=== PATIENT | female | born 1960 | race Two or more races ===

== ENCOUNTER 2020-06-13 09:12 | Outpatient (REF) | payer OTHER, SELFPAY ==
[2020-06-13 10:22] LABS: MANUAL DIFF FLAG NO
[2020-06-13 10:31] LABS: Basophils Percent Auto 0.3 % (0-2); Eosinophils Absolute Auto 0.2 X10*3/uL (0.0-0.4); Eosinophils Percent Auto 3.1 % (0-4); Hematocrit 43.3 % (37-47); Imm Gran Abs Auto 0.02 X10*3/uL (0.00-0.03); Imm Gran Pct Auto 0.3 % (0.0-0.4); Lymphocytes Absolute Auto 2.4 X10*3/uL (1.2-4.9); Lymphocytes Percent Auto 32.2 % (20-40); Mean Corpuscular HGB Conc 32.3 g/dl (31.0-35.0); Mean Corpuscular Hemoglobin 30.2 pg (27.0-33.0); Mean Corpuscular Volume 93.3 fL (80-98); Mean Platelet Volume 10.2 fL (9.4-12.3); Monocytes Absolute Auto 0.3 X10*3/uL (0.1-1.2); Monocytes Percent Auto 3.4 % (2-11); Neutrophils Absolute Auto 4.6 X10*3/uL (2.0-8.3); Neutrophils Percent Auto 60.7 % (45-73); Platelet Count 255 X10*3/uL (160-400); Red Blood Count 4.64 X10*6/uL (4.20-5.50); Red Cell Distribution Width 14.4 % (11.0-16.0); White Blood Count 7.5 X10*3/uL (4.8-10.8)
[2020-06-13 11:03] LABS: Alanine Aminotransferase 27 U/L (0-31); Albumin Level 4.2 g/dL (3.5-5.0); Alkaline Phosphatase 155 U/L (39-117); Anion Gap 14 (12-20); Aspartate Amino Transferase 25 U/L (5-31); Bilirubin Total 0.4 mg/dL (0.0-1.0); Blood Urea Nitrogen 13 mg/dL (9-16); Calcium 9.2 mg/dL (8.4-10.2); Carbon Dioxide 27 mmol/L (22-29); Chloride 104 mmol/L (96-108); Cholesterol 189 mg/dL; Estimated Glomerular Filt Rate > 60; Glucose Fasting 93 mg/dL (60-99); HDL Cholesterol 39 mg/dL; LDL Cholesterol Calculated 131 mg/dl; Potassium 4.5 mmol/l (3.3-5.1); Sodium 140 mmol/L (135-145); Total Protein 7.7 g/dL (6.5-8.0); Triglycerides 96 mg/dL
[2020-06-13 11:30] LABS: Erythrocyte Sedimentation Rate 53 MM/HR (0-20)
== END 2020-06-13 09:13 | disposition home or self-care (01) ==
LOC: HO.LAB 09:12
PROVIDERS: PCP Internal Medicine; Visit Provider Internal Medicine
DX: E78.5 Hyperlipidemia, unspecified (principal); R79.89 Other specified abnormal findings of blood chemistry; L93.0 Discoid lupus erythematosus
CPT/HCPCS: 36415; 80053; 80061; 85025; 85652

== ENCOUNTER 2020-09-12 10:58 | Outpatient (REF) | payer OTHER, SELFPAY ==
[2020-09-12 11:35] LABS: MANUAL DIFF FLAG NO
[2020-09-12 11:45] LABS: Basophils Percent Auto 0.4 % (0-2); Eosinophils Absolute Auto 0.2 X10*3/uL (0.0-0.4); Eosinophils Percent Auto 2.1 % (0-4); Hematocrit 45.2 % (37-47); Hemoglobin 15.1 g/dl (12.0-16.0); Imm Gran Abs Auto 0.03 X10*3/uL (0.00-0.03); Imm Gran Pct Auto 0.3 % (0.0-0.4); Lymphocytes Absolute Auto 3.1 X10*3/uL (1.2-4.9); Lymphocytes Percent Auto 33.8 % (20-40); Mean Corpuscular HGB Conc 33.4 g/dl (31.0-35.0); Mean Corpuscular Volume 89.9 fL (80-98); Mean Platelet Volume 10.3 fL (9.4-12.3); Monocytes Absolute Auto 0.5 X10*3/uL (0.1-1.2); Monocytes Percent Auto 5.1 % (2-11); Neutrophils Absolute Auto 5.3 X10*3/uL (2.0-8.3); Neutrophils Percent Auto 58.3 % (45-73); Platelet Count 323 X10*3/uL (160-400); Red Blood Count 5.03 X10*6/uL (4.20-5.50); Red Cell Distribution Width 14.7 % (11.0-16.0); White Blood Count 9.1 X10*3/uL (4.8-10.8)
[2020-09-12 12:28] LABS: Alanine Aminotransferase 37 U/L (0-31); Albumin Level 4.5 g/dL (3.5-5.0); Alkaline Phosphatase 163 U/L (39-117); Anion Gap 14 (12-20); Aspartate Amino Transferase 29 U/L (5-31); Bilirubin Total 0.5 mg/dL (0.0-1.0); Blood Urea Nitrogen 14 mg/dL (9-16); Calcium 9.7 mg/dL (8.4-10.2); Carbon Dioxide 27 mmol/L (22-29); Chloride 105 mmol/L (96-108); Cholesterol 221 mg/dL; Estimated Glomerular Filt Rate > 60; Glucose Fasting 90 mg/dL (60-99); HDL Cholesterol 46 mg/dL; LDL Cholesterol Calculated 156 mg/dl; Potassium 4.7 mmol/L (3.3-5.1); Sodium 141 mmol/L (135-145); Total Protein 8.3 g/dL (6.5-8.0); Triglycerides 95 mg/dL
[2020-09-12 12:31] LABS: Erythrocyte Sedimentation Rate 43 MM/HR (0-20)
== END 2020-09-12 10:59 | disposition home or self-care (01) ==
LOC: HO.LAB 10:58
PROVIDERS: PCP Internal Medicine; Visit Provider Internal Medicine
DX: E78.5 Hyperlipidemia, unspecified (principal); R79.89 Other specified abnormal findings of blood chemistry; L93.0 Discoid lupus erythematosus
CPT/HCPCS: 36415; 80053; 80061; 85025; 85652

== ENCOUNTER 2020-09-14 10:33 | Outpatient (REF) | payer OTHER, SELFPAY ==
--- NOTE | ~2020-09-14 | MM_ITS ---
EXAMINATION: MM SCREENING DIGITAL BREAST TOMOSYNTHESIS, BILATERAL CLINICAL INFORMATION: Screening. Asymptomatic. The lifetime risk of breast cancer based on the Tyrer-Cuzick Model is 4%. COMPARISON: Mammography: 08/19/2019, 10/02/2016, 10/18/2014 TECHNIQUE: Digital breast tomosynthesis is performed in both the craniocaudal and mediolateral oblique views along with computer-aided detection (CAD). Synthesized 2D images are generated from the tomosynthesis. Additional left MLO view is provided. FINDINGS: The breasts are almost entirely fatty (ACR BI-RADS breast composition Category a). There are no significant masses, abnormal calcifications, or other abnormalities. The axilla and skin contours are unremarkable. MM/MM tomosynthesis screening BI IMPRESSION: No mammographic evidence of malignancy. ASSESSMENT: BI-RADS 1: Negative RECOMMENDATION: Routine annual mammography screening. This patient's information was entered into a reminder system with a target due date for their next mammogram.
== END 2020-09-14 10:34 | disposition home or self-care (01) ==
LOC: HO.MAMMO 10:33
PROVIDERS: Visit Provider Internal Medicine
DX: Z12.31 Encounter for screening mammogram for malignant neoplasm of breast (principal)
CPT/HCPCS: 77063; 77067

== ENCOUNTER 2021-03-14 22:10 | Emergency (ER) | payer OTHER, SELFPAY ==
--- NOTE | 2021-03-14 | ECG_ITS ---
Test Reason : MIGRAINE Blood Pressure : / mmHG Vent. Rate : 081 BPM Atrial Rate : 081 BPM P-R Int : 146 ms QRS Dur : 088 ms QT Int : 394 ms P-R-T Axes : 039 -02 036 degrees QTc Int : 457 ms Normal sinus rhythm Normal ECG When compared with ECG of 19-JUL-2019 11:45, No significant change was found Referred By: Generic ED Physician Electronically Signed By:HEIDI ADLER MD
--- NOTE | ~2021-03-14 | XR_ITS ---
EXAMINATION: XR CHEST CLINICAL INFORMATION: Intermittent chest pain COMPARISON: 07/19/2019 TECHNIQUE: Frontal view of the chest was obtained. FINDINGS: The lungs are well expanded. There is no focal consolidation, edema, or effusion. No pneumothorax. The cardiomediastinal silhouette is within normal limits. No acute osseous abnormality. XR/XR chest 1V IMPRESSION: Clear lungs.
[2021-03-14 22:35] VITALS: BP 122/65; PULSE 87; RESP 18; TEMP 36.5; O2SAT 95; BMI 36.6
[2021-03-14 23:10] LABS: Basophils Percent Auto 0.3 % (0-2); Eosinophils Absolute Auto 0.2 X10*3/uL (0.0-0.4); Eosinophils Percent Auto 2.2 % (0-4); Hematocrit 41.2 % (37-47); Hemoglobin 13.8 g/dl (12.0-16.0); Imm Gran Abs Auto 0.03 X10*3/uL (0.00-0.03); Imm Gran Pct Auto 0.3 % (0.0-0.4); Lymphocytes Absolute Auto 3.6 X10*3/uL (1.2-4.9); Lymphocytes Percent Auto 37.3 % (20-40); MANUAL DIFF FLAG NO; Mean Corpuscular HGB Conc 33.5 g/dl (31.0-35.0); Mean Corpuscular Hemoglobin 30.6 pg (27.0-33.0); Mean Corpuscular Volume 91.4 fL (80-98); Mean Platelet Volume 10.1 fL (9.4-12.3); Monocytes Absolute Auto 0.6 X10*3/uL (0.1-1.2); Monocytes Percent Auto 5.9 % (2-11); Neutrophils Absolute Auto 5.2 X10*3/uL (2.0-8.3); Platelet Count 262 X10*3/uL (160-400); Red Blood Count 4.51 X10*6/uL (4.20-5.50); Red Cell Distribution Width 16.2 % (11.0-16.0); White Blood Count 9.6 X10*3/uL (4.8-10.8)
[2021-03-14 23:15] LABS: INTERNATIONAL NORM RATIO 1.1 (0.9-1.1)
--- NOTE | 2021-03-14 23:19 | ED.HA ---
HPI - Headache General Chief Complaint: Headache Stated Complaint: migraine Time Seen by Provider: 03/14/21 23:19 Source: patient Mode of arrival: ambulatory Limitations: no limitations History of Present Illness HPI Narrative: patient states she has had a couple of days of headache, patient been taking her medication with some improvement, no with increased pain. MD elicited complaint: migraine Onset (ago): week(s) Onset description: gradually Location: occipital Severity: moderate Quality & Timing: sharp Exacerbating factors: light and noise Associated symptoms: nausea and vomiting Related Data Home Medications Medication Instructions Recorded Confirmed fluocinonide 0.05 % topical TOPICAL 06/13/20 09/15/20 ointment folic acid 1 mg tablet mg PO 06/13/20 09/15/20 methotrexate sodium 2.5 mg tablet mg PO 06/13/20 09/15/20 ondansetron HCl 4 mg tablet mg PO 06/13/20 09/15/20 tacrolimus 0.1 % topical ointment TOPICAL BID 06/13/20 09/15/20 Previous Rx's Medication Instructions Recorded albuterol sulfate 90 mcg/actuation 2 puff PO QID PRN 30 Days #8.5 g 09/15/20 aerosol inhaler docusate sodium 100 mg capsule 100 mg PO BID PRN #60 cap 09/15/20 (DOK) aspirin 81 mg tablet,delayed 81 mg PO DAILY #90 tab 09/18/20 release miscellaneous medical supply 1 ea MISCELLANEOUS .daily as 09/18/20 needed 365 Days #1 ea omeprazole 20 mg capsule,delayed 20 mg PO DAILY #30 cap 11/09/20 release hydroxyzine HCl 10 mg tablet 10 mg PO BID PRN #60 tab 12/21/20 tiotropium bromide 18 mcg capsule 1 cap INHALATION DAILY #30 inh 12/21/20 with inhalation device (Spiriva with HandiHaler) clonazepam 0.5 mg tablet 0.5 mg PO BID PRN 30 Days #60 tab 01/15/21 duloxetine 60 mg capsule,delayed 60 mg PO BID #60 cap 01/15/21 release gabapentin 800 mg tablet 800 mg PO TID 30 Days #90 tab 01/15/21 trazodone 50 mg tablet 50 mg PO BEDTIME PRN 30 Days #30 01/15/21 tab salsalate 500 mg tablet 1,000 mg PO TID #180 tab 01/19/21 meclizine 25 mg tablet 25 mg PO TID PRN 10 Days #30 tab 02/14/21 tizanidine 4 mg tablet 4 mg PO TID PRN #90 tab 02/24/21 albuterol sulfate 2.5 mg INHALATION TID PRN #225 ml 03/09/21 bupropion HCl 300 mg 24 hr tablet, 300 mg PO DAILY #90 tab 03/09/21 extended release oxycodone-acetaminophen 10 mg-325 1 tab PO Q6H PRN 28 Days #112 tab 03/09/21 mg tablet topiramate 100 mg tablet 100 mg PO BID 30 Days #60 tab 03/09/21 zolpidem 10 mg tablet 10 mg PO BEDTIME PRN 30 Days #30 03/14/21 tab Allergies Allergy/AdvReac Type Severity Reaction Status Date / Time hydroxychloroquine Allergy Intermediate SHORTNESS, Verified 03/14/21 22:40 [From [facility]] CHEST TIGHTNESS , RASH oseltamivir Allergy Unknown Unknown Verified 03/14/21 22:40 Review of Systems Constitutional: Constitutional: Reports no additional constitutional complaints Eyes: Eyes: Reports no additional eye complaints ENT: Denies dizziness Cardiovascular: Cardiovascular: Reports no additional cardiovascular complaints Respiratory: Respiratory: Reports as per HPI Gastrointestinal: Gastrointestinal: Reports no additional gastrointestinal complaints Genitourinary: Genitourinary: Reports no additional female genitourinary complaints Musculoskeletal: Musculoskeletal: Reports no additional musculoskeletal complaints Integumentary/Breasts: Skin/Breast: Denies rash Neurologic: Reports system reviewed and no additional complaints, except as documented, Denies dizziness and Denies Sensory deficit (Neuro) Psychiatric: Psychiatric: Denies anxiety PMFSH Past Medical History Medical History Anxiety Asthma Constipation Depression Discoid lupus Dyslipidemia Elevated LFTs GERD without esophagitis Insomnia Lumbar degenerative disc disease Migraine Obesity (BMI 30-39.9) Surgical History H/O hand surgery History of colonoscopy History of foot surgery History of laparoscopic appendectomy History of lumbar surgery History of sinus surgery History of tubal ligation S/P total abdominal hysterectomy Family History Family History Father Heart disease Hypertension Stroke CVD (cardiovascular disease) Mother Hypertension Asthma Diabetes Sister Diabetes Hypertension Other Mental problem Social History Social History Housing: House Alcohol intake: never Patient Tobacco Use Status: Current everyday Tobacco user Cigarettes Per Day: 10 Advance Directives: No Advance Directives Information Provided: Yes Patient : No service: No Current occupational status: disabled Physical Exam Vital Signs: Vital Signs: Last Vital Signs Temp 98.4 F 03/14/21 23:33 Pulse 80 03/15/21 00:42 Resp 19 03/15/21 00:42 BP 129/63 03/15/21 00:42 Pulse Ox 94 03/15/21 00:42 Body Mass Index 36.6 Const: Other: Patient moaning with pain Nutritional Appearance: obese Orientation/consciousness: oriented to person and patient oriented x3 Limitations: no limitations HENMT: Head: Yes normal to inspection Ears: external ears normal General nose exam: Normal external nose present Mouth: Normal oral and palatal mucosa present and oropharynx normal Throat: Yes posterior oropharynx normal Eyes: Other: optic disks normal in both eyes Neck: Other: supple Neck: Yes normal visual inspection Chest: Chest palpation & inspection: normal inspection of the chest Resp: Auscultation: clear to auscultation bilaterally Cardio: Jugular venous distension: no JVD Rate: regular rate Rhythm: regular rhythm Heart sounds: S1 normal heart sound present and S2 normal heart sound present GI: Inspection: Yes normal to inspection Palpation (GI): Soft to palpation, nontender and No hepatosplenomegaly present Auscultation: normal bowel sounds : General: Yes no CVA tenderness Back/Spine/Pelvis: Back: no CVA tenderness Skin: General skin exam: no rashes or lesions noted Neuro: Other: no evidence of any focal weakness General: oriented to person and patient oriented x3 Cranial nerves: Yes CN's II-XII intact bilaterally Motor exam (neuro): 5/5 motor strength present throughout Sensory Exam: No Sensory deficit (Neuro) Extrem: General: Yes normal to inspection Psych: Appearance: grossly normal Course Reevaluation(s) Reevaluation #1: patient improved, no further headache. Will dc home Time: 00:58 MDM - Headache Lab Data Result diagrams: 03/14/21 23:02 03/14/21 23:02 Labs: Lab Results 03/14/21 03/14/21 03/14/21 Range/Units 23:02 23:02 23:02 WBC 9.6 (4.8-10.8) X10*3/uL RBC 4.51 (4.20-5.50) X10*6/uL Hgb 13.8 (12.0-16.0) g/dl Hct 41.2 (37-47) % MCV 91.4 (80-98) fL MCH 30.6 (27.0-33.0) pg MCHC 33.5 (31.0-35.0) g/dl RDW 16.2 H (11.0-16.0) % Plt Count 262 (160-400) X10*3/uL MPV 10.1 (9.4-12.3) fL Immature Gran % (Auto) 0.3 (0.0-0.4) % Neut % (Auto) 54.0 (45-73) % Lymph % (Auto) 37.3 (20-40) % [place] % (Auto) 5.9 (2-11) % Eos % (Auto) 2.2 (0-4) % Baso % (Auto) 0.3 (0-2) % Lymph # (Auto) 3.6 (1.2-4.9) X10*3/uL [place] # (Auto) 0.6 (0.1-1.2) X10*3/uL Eos # (Auto) 0.2 (0.0-0.4) X10*3/uL Baso # (Auto) 0.0 (0.0-0.2) X10*3/uL Abs Immat Gran (auto) 0.03 (0.00-0.03) X10*3/uL Absolute Neuts (auto) 5.2 (2.0-8.3) X10*3/uL Absolute Nucleated RBC 0.000 (0.0-0.012) X10*3/uL Nucleated RBC % (auto) 0.0 (0.0-0.2) /100WBC PT 12.0 (9.9-13.0) SEC INR 1.1 (0.9-1.1) Sodium 143 (135-145) mmol/L Potassium 3.9 (3.3-5.1) mmol/L Chloride 113 H (96-108) mmol/L Carbon Dioxide 21 L (22-29) mmol/L Anion Gap 13 (12-20) BUN 13 (9-16) mg/dL Creatinine 0.83 (0.5-1.4) mg/dL Estim Creat Clear Calc 77.4 Estimated GFR > 60 Random Glucose 103 (60-115) mg/dL Calcium 9.6 (8.4-10.2) mg/dL Total Bilirubin 0.4 (0.0-1.0) mg/dL AST 25 (5-31) U/L ALT 36 H (0-31) U/L Alkaline Phosphatase 149 H (39-117) U/L Troponin I High Sens (<3.5-17.0) ng/L Total Protein 7.5 (6.5-8.0) g/dL Albumin 4.0 (3.5-5.0) g/dL 03/14/21 Range/Units 23:02 WBC (4.8-10.8) X10*3/uL RBC (4.20-5.50) X10*6/uL Hgb (12.0-16.0) g/dl Hct (37-47) % MCV (80-98) fL MCH (27.0-33.0) pg MCHC (31.0-35.0) g/dl RDW (11.0-16.0) % Plt Count (160-400) X10*3/uL MPV (9.4-12.3) fL Immature Gran % (Auto) (0.0-0.4) % Neut % (Auto) (45-73) % Lymph % (Auto) (20-40) % [place] % (Auto) (2-11) % Eos % (Auto) (0-4) % Baso % (Auto) (0-2) % Lymph # (Auto) (1.2-4.9) X10*3/uL [place] # (Auto) (0.1-1.2) X10*3/uL Eos # (Auto) (0.0-0.4) X10*3/uL Baso # (Auto) (0.0-0.2) X10*3/uL Abs Immat Gran (auto) (0.00-0.03) X10*3/uL Absolute Neuts (auto) (2.0-8.3) X10*3/uL Absolute Nucleated RBC (0.0-0.012) X10*3/uL Nucleated RBC % (auto) (0.0-0.2) /100WBC PT (9.9-13.0) SEC INR (0.9-1.1) Sodium (135-145) mmol/L Potassium (3.3-5.1) mmol/L Chloride (96-108) mmol/L Carbon Dioxide (22-29) mmol/L Anion Gap (12-20) BUN (9-16) mg/dL Creatinine (0.5-1.4) mg/dL Estim Creat Clear Calc Estimated GFR Random Glucose (60-115) mg/dL Calcium (8.4-10.2) mg/dL Total Bilirubin (0.0-1.0) mg/dL AST (5-31) U/L ALT (0-31) U/L Alkaline Phosphatase (39-117) U/L Troponin I High Sens 4.3 (<3.5-17.0) ng/L Total Protein (6.5-8.0) g/dL Albumin (3.5-5.0) g/dL ECG Data Attestation: I personally reviewed and interpreted this ECG as follows: Interpretation: sinus rate of 80, no st or twave changes Discharge Plan Discharge Clinical Impression: Migraine Patient Disposition: Home, Self-Care Instructions: Migraine Headache (ED) Prescriptions: No Action miscellaneous medical supply Misc 1 ea miscellaneous .daily as needed 365 Days Qty: 1 RF: 0 aspirin 81 mg tablet,delayed release (DR/EC) 81 mg PO DAILY Qty: 90 RF: 3 omeprazole 20 mg capsule,delayed release(DR/EC) 20 mg PO DAILY Qty: 30 RF: 2 tiotropium bromide [Spiriva with HandiHaler] 18 mcg capsule, w/inhalation device 1 cap inhalation DAILY Qty: 30 RF: 3 hydroxyzine HCl 10 mg tablet 10 mg PO BID PRN (Reason: for anxiety) Qty: 60 RF: 3 trazodone 50 mg tablet 50 mg PO BEDTIME PRN (Reason: insomnia) 30 Days Qty: 30 RF: 3 duloxetine 60 mg capsule,delayed release(DR/EC) 60 mg PO BID Qty: 60 RF: 2 clonazepam 0.5 mg tablet 0.5 mg PO BID PRN (Reason: anxiety) 30 Days Qty: 60 RF: 0 gabapentin 800 mg tablet 800 mg PO TID 30 Days Qty: 90 RF: 3 salsalate 500 mg tablet 1,000 mg PO TID Qty: 180 RF: 1 meclizine 25 mg tablet 25 mg PO TID PRN (Reason: dizziness) 10 Days Qty: 30 RF: 1 tizanidine 4 mg tablet 4 mg PO TID PRN (Reason: for muscle spasm) Qty: 90 RF: 0 oxycodone-acetaminophen 10-325 mg tablet 1 tab PO Q6H PRN (Reason: pain) 28 Days Qty: 112 RF: 0 topiramate 100 mg tablet 100 mg PO BID 30 Days Qty: 60 RF: 2 albuterol sulfate 2.5 mg /3 mL (0.083 %) solution for nebulization 2.5 mg inhalation TID PRN (Reason: for wheezing) Qty: 225 RF: 2 bupropion HCl 300 mg tablet extended release 24 hr 300 mg PO DAILY Qty: 90 RF: 1 methotrexate sodium 2.5 mg tablet PO RF: 0 ondansetron HCl 4 mg tablet PO RF: 0 folic acid 1 mg tablet PO RF: 0 tacrolimus 0.1 % ointment topical BID RF: 0 fluocinonide 0.05 % ointment topical RF: 0 zolpidem 10 mg tablet 10 mg PO BEDTIME PRN (Reason: insomnia) 30 Days Qty: 30 RF: 1 albuterol sulfate 90 mcg/actuation HFA aerosol inhaler 2 puff PO QID PRN (Reason: shortness of breath or wheezing) 30 Days Qty: 8.5 RF: 5 docusate sodium [DOK] 100 mg capsule 100 mg PO BID PRN (Reason: constipation) Qty: 60 RF: 3 Referrals: Physician,Unknown [Primary Care Provider] - 1 week
[2021-03-14 23:33] VITALS: BP 122/61; PULSE 83; RESP 18; TEMP 36.9; O2SAT 94
[2021-03-14 23:33] LABS: Troponin-I High Sensitivity 4.3 ng/L (<3.5-17.0)
[2021-03-14 23:39] LABS: Alanine Aminotransferase 36 U/L (0-31); Alkaline Phosphatase 149 U/L (39-117); Anion Gap 13 (12-20); Aspartate Amino Transferase 25 U/L (5-31); Bilirubin Total 0.4 mg/dL (0.0-1.0); Blood Urea Nitrogen 13 mg/dL (9-16); Calcium 9.6 mg/dL (8.4-10.2); Carbon Dioxide 21 mmol/L (22-29); Chloride 113 mmol/L (96-108); Creatinine Clr Calc Pharmacy 77.4; Estimated Glomerular Filt Rate > 60; Glucose Random 103 mg/dL (60-115); Potassium 3.9 mmol/L (3.3-5.1); Sodium 143 mmol/L (135-145); Total Protein 7.5 g/dL (6.5-8.0)
[2021-03-14] MEDS: 0.9 % Sodium Chloride 1,000 ML 999 ML IVCONT ×2 (23:39→23:40)
[2021-03-14] MEDS: Ketorolac Tromethamine 15 MG/ML VIAL 30 MG IVPUSH (23:40)
[2021-03-15 00:42] VITALS: BP 129/63; PULSE 80; RESP 19; O2SAT 94
== END 2021-03-15 01:18 | disposition home or self-care (01) ==
PROVIDERS: Emergency Provider Emergency Medicine
DX: G43.909 Migraine, unspecified, not intractable, without status migrainosus (principal); J45.909 Unspecified asthma, uncomplicated; Z79.899 Other long term (current) drug therapy
CPT/HCPCS: 36415; 71045; 80053; 84484; 85025; 85610; 93005; 96361; 96374; 96375; 99284; J1885; J2550

== ENCOUNTER 2021-06-11 08:55 | Outpatient (REF) | payer OTHER, SELFPAY ==
[2021-06-11 09:25] LABS: MANUAL DIFF FLAG NO
[2021-06-11 09:44] LABS: Basophils Absolute Auto 0.1 X10*3/uL (0.0-0.2); Basophils Percent Auto 0.7 % (0-2); Eosinophils Absolute Auto 0.2 X10*3/uL (0.0-0.4); Eosinophils Percent Auto 2.8 % (0-4); Hematocrit 45.5 % (37.0-47.0); Hemoglobin 15.4 g/dl (12.0-16.0); Imm Gran Abs Auto 0.03 X10*3/uL (0.00-0.03); Imm Gran Pct Auto 0.3 % (0.0-0.4); Lymphocytes Absolute Auto 2.9 X10*3/uL (1.2-4.9); Lymphocytes Percent Auto 33.8 % (20-40); Mean Corpuscular HGB Conc 33.8 g/dl (31.0-35.0); Mean Corpuscular Hemoglobin 30.7 pg (27.0-33.0); Mean Corpuscular Volume 90.6 fL (80.0-98.0); Mean Platelet Volume 10.5 fL (9.4-12.3); Monocytes Absolute Auto 0.7 X10*3/uL (0.1-1.2); Monocytes Percent Auto 7.6 % (2-11); Neutrophils Absolute Auto 4.7 x10*3/uL (2.0-8.3); Neutrophils Percent Auto 54.8 % (45-73); Platelet Count 275 X10*3/uL (160-400); Red Blood Count 5.02 X10*6/uL (4.20-5.50); Red Cell Distribution Width 13.8 % (11.0-16.0); White Blood Count 8.7 X10*3/uL (4.8-10.8)
[2021-06-11 10:10] LABS: Alanine Aminotransferase 51 U/L (0-31); Albumin Level 4.2 g/dL (3.5-5.0); Alkaline Phosphatase 151 U/L (39-117); Anion Gap 14 (12-20); Aspartate Amino Transferase 42 U/L (5-31); Bilirubin Total 0.4 mg/dL (0.0-1.0); Blood Urea Nitrogen 12 mg/dL (9-16); Calcium 10.1 mg/dL (8.4-10.2); Carbon Dioxide 27 mmol/L (22-29); Chloride 106 mmol/L (96-108); Cholesterol 208 mg/dL; Estimated Glomerular Filt Rate > 60; Glucose Fasting 101 mg/dL (60-99); HDL Cholesterol 54 mg/dL; LDL Cholesterol Calculated 134 mg/dl; Potassium 4.5 mmol/L (3.3-5.1); Sodium 142 mmol/L (135-145); Total Protein 7.9 g/dL (6.5-8.0); Triglycerides 103 mg/dL
[2021-06-11 10:32] LABS: TSH reflex Free T4 0.68 uIU/mL (0.32-4.0)
[2021-06-11 10:35] LABS: Erythrocyte Sedimentation Rate 26 MM/HR (0-20)
[2021-06-11 10:43] LABS: Appearance Urine CLEAR; Color Urine YELLOW; Glucose Urine UA NEG (NEG); Leukocyte Esterase Urine TRACE (NEG); Nitrite Urine NEG (NEG); UACC Culture Trigger YES; Urine Blood NEG (NEG); Urine Ketones NEG (NEG); Urine Protein NEG (NEG-TRACE)
[2021-06-11 12:01] LABS: RBC Urine 0 /HPF (0); Squamous Epithelial Cell Urine 2+ /LPF; WBC Urine 0-2 /HPF (0-4)
== END 2021-06-11 08:56 | disposition home or self-care (01) ==
LOC: HO.LAB 08:55
PROVIDERS: PCP Internal Medicine; Visit Provider Internal Medicine
DX: L93.0 Discoid lupus erythematosus (principal); K21.9 Gastro-esophageal reflux disease without esophagitis; J45.30 Mild persistent asthma, uncomplicated; E78.5 Hyperlipidemia, unspecified; R94.5 Abnormal results of liver function studies; E78.00 Pure hypercholesterolemia, unspecified; E66.9 Obesity, unspecified
CPT/HCPCS: 36415; 80053; 80061; 81001; 84443; 85025; 85652; 87086

== ENCOUNTER 2021-09-14 08:37 | Outpatient (REF) | payer OTHER, SELFPAY ==
[2021-09-14 08:57] LABS: MANUAL DIFF FLAG NO
[2021-09-14 09:18] LABS: Basophils Absolute Auto 0.1 X10*3/uL (0.0-0.2); Basophils Percent Auto 0.5 % (0-2); Eosinophils Absolute Auto 0.3 X10*3/uL (0.0-0.4); Eosinophils Percent Auto 2.9 % (0-4); Hemoglobin 15.1 g/dl (12.0-16.0); Imm Gran Abs Auto 0.04 X10*3/uL (0.00-0.03); Imm Gran Pct Auto 0.4 % (0.0-0.4); Lymphocytes Absolute Auto 3.8 X10*3/uL (1.2-4.9); Lymphocytes Percent Auto 40.7 % (20-40); Mean Corpuscular HGB Conc 32.8 g/dl (31.0-35.0); Mean Corpuscular Hemoglobin 29.5 pg (27.0-33.0); Mean Corpuscular Volume 89.8 fL (80.0-98.0); Mean Platelet Volume 10.4 fL (9.4-12.3); Monocytes Absolute Auto 0.6 X10*3/uL (0.1-1.2); Monocytes Percent Auto 6.5 % (2-11); Neutrophils Absolute Auto 4.6 x10*3/uL (2.0-8.3); Platelet Count 258 X10*3/uL (160-400); Red Blood Count 5.12 X10*6/uL (4.20-5.50); Red Cell Distribution Width 13.4 % (11.0-16.0); White Blood Count 9.4 X10*3/uL (4.8-10.8)
[2021-09-14 09:35] LABS: Alanine Aminotransferase 55 U/L (0-31); Albumin Level 4.1 g/dL (3.5-5.0); Alkaline Phosphatase 170 U/L (39-117); Anion Gap 11 (12-20); Aspartate Amino Transferase 34 U/L (5-31); Bilirubin Total 0.4 mg/dL (0.0-1.0); Blood Urea Nitrogen 14 mg/dL (9-16); Calcium 10.3 mg/dL (8.4-10.2); Carbon Dioxide 27 mmol/L (22-29); Chloride 106 mmol/L (96-108); Cholesterol 210 mg/dL; Estimated Glomerular Filt Rate > 60; Glucose Fasting 110 mg/dL (60-99); HDL Cholesterol 50 mg/dL; LDL Cholesterol Calculated 134 mg/dl; Potassium 4.7 mmol/L (3.3-5.1); Sodium 139 mmol/L (135-145); Total Protein 8.1 g/dL (6.5-8.0); Triglycerides 133 mg/dL
[2021-09-14 09:56] LABS: TSH reflex Free T4 1.37 uIU/mL (0.32-4.0); Vitamin D 25-OH Total 16.3 ng/mL (>30)
[2021-09-14 10:11] LABS: Appearance Urine CLEAR; Color Urine YELLOW; Glucose Urine UA NEG (NEG); Leukocyte Esterase Urine NEG (NEG); Nitrite Urine NEG (NEG); Urine Blood NEG (NEG); Urine Ketones NEG (NEG); Urine Protein NEG (NEG-TRACE)
== END 2021-09-14 08:38 | disposition home or self-care (01) ==
LOC: HO.LAB 08:37
PROVIDERS: PCP Internal Medicine; Visit Provider Internal Medicine
DX: E55.9 Vitamin D deficiency, unspecified (principal); I10 Essential (primary) hypertension; E78.00 Pure hypercholesterolemia, unspecified
CPT/HCPCS: 36415; 80053; 80061; 81003; 82306; 84443; 85025

== ENCOUNTER 2021-10-26 13:50 | Emergency (ER) | payer OTHER, SELFPAY ==
--- NOTE | ~2021-10-26 | XR_ITS ---
EXAMINATION: XR CHEST CLINICAL INFORMATION: Cough. COMPARISON: None TECHNIQUE: 2 views of the chest were obtained. FINDINGS: The lungs are well-expanded and clear of acute process. The heart size and pulmonary vascularity is normal. There is mild spondylosis of dorsal spine. No lytic process. XR/XR chest 2V IMPRESSION: Unremarkable chest examination.
[2021-10-26 13:53] VITALS: BP 159/59; PULSE 92; RESP 18; TEMP 36.1; O2SAT 97; BMI 35.4
[2021-10-26 15:08] VITALS: PULSE 92; RESP 18; O2SAT 97
[2021-10-26] MEDS: Albuterol/Iprat 2.5/0.5MG 3 ML AMPUL.NEB INHALE (15:08)
--- NOTE | 2021-10-26 16:07 | ED_ITS ---
HPI - Asthma General Chief Complaint: Asthma Stated Complaint: asthma Time Seen by Provider: 10/26/21 14:56 History of Present Illness HPI Narrative: Patient complains of wheezing typical of her asthma using frequent MDI and albuterol machine dosing at home for the last week which helps for appeared of time and then wheezing returns she has had no fever no unusual cough no recent illness Related Data Home Medications Medication Instructions Recorded Confirmed fluocinonide 0.05 % topical TOPICAL 06/13/20 09/17/21 ointment folic acid 1 mg tablet mg PO 06/13/20 09/17/21 tacrolimus 0.1 % topical ointment TOPICAL BID 06/13/20 09/17/21 Previous Rx's Medication Instructions Recorded miscellaneous medical supply 1 ea MISCELLANEOUS .daily as 09/18/20 needed 365 Days #1 ea clonazepam 0.5 mg tablet 0.5 mg PO BID PRN 30 Days #60 tab 01/15/21 aspirin 81 mg tablet,delayed 81 mg PO DAILY #90 tab 06/15/21 release docusate sodium 100 mg capsule 100 mg PO BID PRN #60 cap 06/15/21 zolpidem 10 mg tablet 10 mg PO BEDTIME PRN 30 Days #30 06/15/21 tab hydroxyzine HCl 10 mg tablet 10 mg PO BID PRN #60 tab 08/09/21 gabapentin 800 mg tablet 800 mg PO TID 30 Days #90 tab 08/20/21 trazodone 50 mg tablet 50 mg PO BEDTIME PRN 30 Days #30 08/22/21 tab ProAir HFA 90 mcg/actuation 2 puff PO QID #8.5 g NS 08/28/21 aerosol inhaler (albuterol sulfate) tiotropium bromide 18 mcg capsule 1 cap INHALATION DAILY #30 ea 09/10/21 with inhalation device (Spiriva with HandiHaler) atorvastatin 10 mg tablet 10 mg PO BEDTIME 30 Days #30 tab 09/17/21 cholecalciferol (vitamin D3) 50 50 mcg PO DAILY 90 Days #90 cap 09/17/21 mcg (2,000 unit) capsule salsalate 500 mg tablet 1,000 mg PO TID #180 tab 09/18/21 albuterol sulfate 2.5 mg (3 mL) INHALATION TID PRN 09/24/21 #225 ml bupropion HCl 300 mg 24 hr tablet, 300 mg PO DAILY 90 Days #90 tab 09/24/21 extended release omeprazole 20 mg capsule,delayed 20 mg PO DAILY #30 cap 09/24/21 release topiramate 100 mg tablet 100 mg PO BID #60 tab 09/24/21 oxycodone-acetaminophen 10 mg-325 1 tab PO Q6H PRN 28 Days #112 tab 10/09/21 mg tablet tizanidine 4 mg tablet 4 mg PO TID PRN #90 tab 10/09/21 prednisone 20 mg tablet 60 mg PO DAILY 5 Days #15 tab 10/26/21 Allergies Allergy/AdvReac Type Severity Reaction Status Date / Time hydroxychloroquine Allergy Intermediate SHORTNESS, Verified 09/17/21 15:19 [From [facility]] CHEST TIGHTNESS , RASH oseltamivir Allergy Unknown Unknown Verified 09/17/21 15:19 Review of Systems Review of Systems: Positive for wheezing typical of her asthma Negatives are no fever no chills no dizziness no weakness no fainting no feeling faint no stiff neck no chest pain no no cough no sputum no abdominal pain no nausea or vomiting no leg swelling no calf pain or swelling Yes all other systems are reviewed and are negative [facility] Past Medical History Source: nursing notes reviewed Medical History (Updated 10/26/21 @ 16:11 by AUGUSTO Chen) Anxiety Asthma Constipation Depression Discoid lupus Dyslipidemia Elevated LFTs Fibromyalgia GERD without esophagitis Insomnia Lumbar degenerative disc disease Migraine Obesity (BMI 30-39.9) Vitamin D deficiency Surgical History H/O hand surgery History of colonoscopy History of foot surgery History of laparoscopic appendectomy History of lumbar surgery History of sinus surgery History of tubal ligation S/P total abdominal hysterectomy Family History Family History Father Heart disease Hypertension Stroke CVD (cardiovascular disease) Mother Hypertension Asthma Diabetes Sister Diabetes Hypertension Other Mental problem Social History Social History Housing: House Alcohol intake: never Patient Tobacco Use Status: Current everyday Tobacco user Cigarettes Per Day: 10 Advance Directives: No Advance Directives Information Provided: Yes service: No Current occupational status: disabled Physical Exam Vital Signs: Vital Signs: Last Vital Signs Temp 97 F 10/26/21 13:53 Pulse 92 10/26/21 15:08 Resp 18 10/26/21 15:08 BP 159/59 H 10/26/21 13:53 Pulse Ox 97 10/26/21 13:53 BMI result Body Mass Index 35.4 General appearance is no acute distress Eyes no redness or discharge Neck is supple Respiratory no distress, able to speak full sentences Breath sounds are somewhat reduced with wheezes bilaterally Abdomen is soft nontender Extremities no calf tenderness or swelling no edema Neuro no focal deficits Course Course Course Narrative: Patient never had any respiratory distress but was given a treatment as her chest was tight and she was wheezing After the albuterol treatment her chest and opened up there was still residual wheezing but she was not short of breath and she was started on steroids and discharged Discharge Plan Discharge Clinical Impression: Asthma Patient Disposition: Home, Self-Care Additional Instructions: Follow with primary doctor We started a course of prednisone to reduce inflammation that causes asthma Use your albuterol that you have at home as needed Return to the ER any time for any difficulty breathing not controlled with her albuterol or any worse condition or any concerns Prescriptions: New prednisone 20 mg tablet 60 mg PO DAILY 5 Days Qty: 15 0RF No Action miscellaneous medical supply Misc 1 ea miscellaneous .daily as needed 365 Days Qty: 1 0RF Rx Instructions: Shower Chair - Dx CODE: M51.36 - lumbar degenerative disc disease clonazepam 0.5 mg tablet 0.5 mg PO BID PRN (Reason: anxiety) 30 Days Qty: 60 0RF hydroxyzine HCl 10 mg tablet 10 mg PO BID PRN (Reason: for anxiety) Qty: 60 3RF gabapentin 800 mg tablet 800 mg PO TID 30 Days Qty: 90 3RF trazodone 50 mg tablet 50 mg PO BEDTIME PRN (Reason: sleep) 30 Days Qty: 30 0RF albuterol sulfate [ProAir HFA] 90 mcg/actuation HFA aerosol inhaler 2 puff PO QID Qty: 8.5 5RF Spiriva with HandiHaler 18 mcg capsule, w/inhalation device 1 cap inhalation DAILY Qty: 30 3RF salsalate 500 mg tablet 1,000 mg PO TID Qty: 180 1RF bupropion HCl 300 mg tablet extended release 24 hr 300 mg PO DAILY 90 Days Qty: 90 1RF omeprazole 20 mg capsule,delayed release(DR/EC) 20 mg PO DAILY Qty: 30 2RF albuterol sulfate 2.5 mg /3 mL (0.083 %) solution for nebulization 2.5 mg inhalation TID PRN (Reason: shortness of breath or wheezing) Qty: 225 2RF topiramate 100 mg tablet 100 mg PO BID Qty: 60 2RF tizanidine 4 mg tablet 4 mg PO TID PRN (Reason: for muscle spasm) Qty: 90 0RF oxycodone-acetaminophen 10-325 mg tablet 1 tab PO Q6H PRN (Reason: pain) 28 Days Qty: 112 0RF folic acid 1 mg tablet PO 0RF tacrolimus 0.1 % ointment topical BID 0RF fluocinonide 0.05 % ointment topical 0RF zolpidem 10 mg tablet 10 mg PO BEDTIME PRN (Reason: insomnia) 30 Days Qty: 30 1RF docusate sodium 100 mg capsule 100 mg PO BID PRN (Reason: for constipation) Qty: 60 3RF aspirin 81 mg tablet,delayed release (DR/EC) 81 mg PO DAILY Qty: 90 3RF atorvastatin 10 mg tablet 10 mg PO BEDTIME 30 Days Qty: 30 3RF cholecalciferol (vitamin D3) 50 mcg (2,000 unit) capsule 50 mcg PO DAILY 90 Days Qty: 90 3RF
== END 2021-10-26 16:22 | disposition home or self-care (01) ==
PROVIDERS: Emergency Provider Emergency Medicine; PCP Internal Medicine
DX: J45.909 Unspecified asthma, uncomplicated (principal); F17.200 Nicotine dependence, unspecified, uncomplicated
CPT/HCPCS: 71046; 94640; 99283; 99284

== ENCOUNTER 2022-04-23 10:49 | Outpatient (REF) | payer OTHER, SELFPAY ==
[2022-04-23 11:09] LABS: MANUAL DIFF FLAG NO
[2022-04-23 11:17] LABS: Basophils Percent Auto 0.2 % (0-2); Eosinophils Absolute Auto 0.1 X10*3/uL (0.0-0.4); Eosinophils Percent Auto 1.7 % (0-4); Hematocrit 43.6 % (37.0-47.0); Hemoglobin 14.7 g/dl (12.0-16.0); Imm Gran Abs Auto 0.03 X10*3/uL (0.00-0.03); Imm Gran Pct Auto 0.4 % (0.0-0.4); Lymphocytes Absolute Auto 2.7 X10*3/uL (1.2-4.9); Lymphocytes Percent Auto 33.7 % (20-40); Mean Corpuscular HGB Conc 33.7 g/dl (31.0-35.0); Mean Corpuscular Hemoglobin 30.2 pg (27.0-33.0); Mean Corpuscular Volume 89.5 fL (80.0-98.0); Mean Platelet Volume 10.7 fL (9.4-12.3); Monocytes Absolute Auto 0.5 X10*3/uL (0.1-1.2); Monocytes Percent Auto 5.8 % (2-11); Neutrophils Absolute Auto 4.7 x10*3/uL (2.0-8.3); Neutrophils Percent Auto 58.2 % (45-73); Platelet Count 217 X10*3/uL (160-400); Red Blood Count 4.87 X10*6/uL (4.20-5.50); Red Cell Distribution Width 13.9 % (11.0-16.0); White Blood Count 8.1 X10*3/uL (4.8-10.8)
[2022-04-23 12:03] LABS: Erythrocyte Sedimentation Rate 46 MM/HR (0-20)
[2022-04-23 12:13] LABS: Appearance Urine Clear; Color Urine Yellow; Glucose Urine UA Negative (Negative); Leukocyte Esterase Urine Large (3+) (Negative); Nitrite Urine Negative (Negative); PH 6.5 (5.0-9.0); Specific Gravity - Urine 1.015 (1.005-1.025); UMIC TRIGGER UACC YES; Urine Blood Negative (Negative); Urine Ketones Negative (Negative); Urine Protein Negative (Neg-Trace)
[2022-04-23 12:40] LABS: Bacteria Urine 3+ (None Seen); Hyaline Casts Urine 0-2 /LPF (0-2); UACC Culture Trigger YES; WBC Urine 0-5 /HPF (0-5)
[2022-04-23 13:14] LABS: Alanine Aminotransferase 24 U/L (0-31); Albumin Level 4.1 g/dL (3.5-5.0); Alkaline Phosphatase 166 U/L (39-117); Anion Gap 16 (12-20); Aspartate Amino Transferase 23 U/L (5-31); Bilirubin Total 0.5 mg/dL (0.0-1.0); Blood Urea Nitrogen 11 mg/dL (9-16); C Reactive Protein 0.86 mg/dL (< or = 0.50); Calcium 9.7 mg/dL (8.4-10.2); Carbon Dioxide 26 mmol/L (22-29); Chloride 106 mmol/L (96-108); Cholesterol 157 mg/dL; Estimated Glomerular Filt Rate > 60; Glucose Fasting 84 mg/dL (60-99); HDL Cholesterol 54 mg/dL; LDL Cholesterol Calculated 93 mg/dl; Potassium 4.6 mmol/L (3.3-5.1); Sodium 143 mmol/L (135-145); Triglycerides 54 mg/dL
[2022-04-23 13:17] LABS: TSH reflex Free T4 0.85 uIU/mL (0.32-4.0); Vitamin D 25-OH Total 31.7 ng/mL (>30)
== END 2022-04-23 10:50 | disposition home or self-care (01) ==
LOC: HO.LAB 10:49
PROVIDERS: PCP Internal Medicine; Visit Provider Internal Medicine
DX: L93.0 Discoid lupus erythematosus (principal); E78.00 Pure hypercholesterolemia, unspecified; E55.9 Vitamin D deficiency, unspecified; M79.7 Fibromyalgia; I10 Essential (primary) hypertension
CPT/HCPCS: 36415; 80053; 80061; 81001; 82306; 84443; 85025; 85652; 86140; 87086

== ENCOUNTER 2022-06-03 11:11 | Emergency (ER) | payer OTHER, SELFPAY ==
--- NOTE | ~2022-06-03 | XR_ITS ---
EXAMINATION: XR CHEST CLINICAL INFORMATION: Cough and shortness of breath COMPARISON: 07/19/2019 and 10/26/2021 TECHNIQUE: 2 views of the chest were obtained. FINDINGS: Lungs are well expanded and clear. Cardiac silhouette is normal in size. The hilar contours are normal. There is a chronic finding of mild osseous hypertrophy at the first rib ends. Multilevel osteophyte formation of the mildly degenerated thoracic spine. XR/XR chest 2V IMPRESSION: No evidence of pneumonia. No acute cardiopulmonary abnormality compared to 10/26/2021.
--- NOTE | 2022-06-03 11:15 | ECG_ITS ---
Test Reason : cp Blood Pressure : / mmHG Vent. Rate : 083 BPM Atrial Rate : 083 BPM P-R Int : 136 ms QRS Dur : 082 ms QT Int : 368 ms P-R-T Axes : 070 023 046 degrees QTc Int : 432 ms Sinus rhythm RSR' or QR pattern in V1 suggests right ventricular conduction delay Otherwise normal ECG When compared with ECG of 14-MAR-2021 22:52, No significant changes seen Referred By: Generic ED Physician Electronically Signed By:RM MATTA MD
[2022-06-03 11:17] VITALS: BP 157/77; PULSE 84; RESP 22; TEMP 36.6; O2SAT 94; BMI 32.9
[2022-06-03 12:22] LABS: Influenza A PCR NEGATIVE (Negative); Influenza B PCR NEGATIVE (Negative); Resp Syncy Virus RNA Qual PCR POSITIVE (Negative); SARS COV2 PCR INHOUSE NEGATIVE (Negative)
[2022-06-03 15:01] VITALS: BP 151/72; PULSE 95; RESP 18; TEMP 36.6; O2SAT 93
--- NOTE | 2022-06-03 15:29 | ED_ITS ---
HPI - General Adult General Chief complaint: Upper Respiratory Symptoms Stated complaint: Asthma/Chest pain Time Seen by Provider: 06/03/22 15:29 Source: patient and physician scribe Mode of arrival: ambulatory Limitations: language barrier History of Present Illness HPI narrative: Patient is a 61 year old assigned female at with a history of asthma and fibromyalgia presenting to the emergency department today with a cough. Patient states that over the last 2 days she has been coughing more frequently. Patient denies any dizziness, lightheadedness, abdominal pain, nausea, vomiting, fever, chills, blurry vision, double vision, loss of vision, chest pain, difficulty breathing, shortness of breath, back pain, night sweats, pain with urination, increased urinary frequency, increased urinary urgency, blood in her urine or stool, syncope or a near syncopal episode, recent trauma or falls, bowel incontinence, bladder incontinence, bowel retention, bladder retention, or any other complaints at this time. Onset (ago): day(s) (2) Severity: mild Severity scale (1-10): 2 Relieving factors: none Exacerbating factors: none Associated symptoms: denies other symptoms Treatments prior to arrival: none Related Data Home Medications Medication Instructions Recorded Confirmed fluocinonide 0.05 % topical topical 06/13/20 04/22/22 ointment folic acid 1 mg tablet mg PO 06/13/20 04/22/22 tacrolimus 0.1 % topical ointment topical BID 06/13/20 04/22/22 mycophenolate mofetil 500 mg tablet 500 mg PO BID 04/19/22 04/22/22 Previous Rx's Medication Instructions Recorded miscellaneous medical supply 1 ea miscellaneous .daily as 09/18/20 needed 365 days #1 ea cholecalciferol (vitamin D3) 50 50 mcg PO DAILY 90 days #90 caps 09/17/21 mcg (2,000 unit) capsule albuterol sulfate 2.5 mg/3 mL 2.5 mg (3 mL) inhalation TID PRN 09/24/21 (0.083 %) solution for nebulization shortness of breath or wheezing #225 mL prednisone 20 mg tablet 60 mg PO DAILY 5 days #15 tabs 10/26/21 clonazepam 0.5 mg tablet 0.5 mg PO BID PRN anxiety 30 days 02/18/22 #60 tabs atorvastatin 10 mg tablet 10 mg PO BEDTIME 30 days #30 tabs 02/19/22 ProAir HFA 90 mcg/actuation 2 puff PO QID PRN shortness of 04/16/22 aerosol inhaler (albuterol sulfate) breath or wheezing 30 days #8.5 grams omeprazole 20 mg capsule,delayed 20 mg PO DAILY 30 days #30 caps 04/16/22 release tizanidine 4 mg tablet 4 mg PO TID PRN for muscle spasm 04/17/22 #90 tabs bupropion HCl 300 mg 24 hr tablet, 300 mg PO DAILY #90 tabs 04/19/22 extended release hydroxyzine HCl 10 mg tablet 10 mg PO BID PRN for anxiety #60 05/06/22 tabs aspirin 81 mg tablet,delayed 81 mg PO DAILY #90 tabs 05/15/22 release docusate sodium 100 mg capsule 100 mg PO BID PRN for constipation 05/15/22 #60 caps gabapentin 800 mg tablet 800 mg PO TID 30 days #90 tabs 05/15/22 salsalate 500 mg tablet 1,000 mg PO TID #180 tabs 05/15/22 trazodone 50 mg tablet 50 mg PO BEDTIME PRN sleep 30 days 05/15/22 #30 tabs zolpidem 10 mg tablet 10 mg PO BEDTIME PRN insomnia 30 05/15/22 days #30 tabs tiotropium bromide 18 mcg capsule 1 cap inhalation DAILY #30 ea 05/16/22 with inhalation device (Spiriva with HandiHaler) oxycodone-acetaminophen 10 mg-325 1 tab PO Q6H PRN pain 28 days #112 05/17/22 mg tablet tabs topiramate 100 mg tablet 100 mg PO BID #60 tabs 05/24/22 prednisone 20 mg tablet 20 mg PO DAILY 12 days #26 tabs 06/03/22 Allergies Allergy/AdvReac Type Severity Reaction Status Date / Time hydroxychloroquine Allergy Intermediate SHORTNESS, Verified 05/13/22 10:20 [From [facility]] CHEST TIGHTNESS , RASH oseltamivir Allergy Unknown Unknown Verified 05/13/22 10:20 Review of Systems Constitutional: Constitutional: Reports no additional constitutional compl aints, Denies chills, Denies fever(s) and Denies night sweats Eyes: Eyes: Reports no additional eye complaints, Denies blurry vision, Denies change in vision, Denies diplopia, Denies eye discharge, Denies loss of vision and Denies eye pain ENT: Denies dizziness Cardiovascular: Cardiovascular: Reports no additional cardiovascular complaints, Denies chest pain, Denies lightheadedness, Denies Loss of Consciousness and Denies dyspnea Respiratory: Respiratory: Reports no additional respiratory complaints, Reports cough and Denies dyspnea Gastrointestinal: Gastrointestinal: Reports no additional gastrointestinal complaints, Denies abdominal pain, Denies melena, Denies hematochezia, Denies change in bowel habits and Denies change in stool character Genitourinary: Genitourinary: Denies hematuria, Denies urinary frequency, Denies dysuria, Denies urinary incontinence, Denies urinary hesitancy and Denies urinary urgency Musculoskeletal: Musculoskeletal: Reports no additional musculoskeletal complaints, Denies numbness and Denies tingling Neurologic: Denies dizziness, Denies loss of vision, Denies numbness and Denies tingling Psychiatric: Psychiatric: Reports no additional psychiatric complaints Endocrine: Endocrine: Reports no additional endocrine complaints Hematologic/Lymphatic: Hematologic/Lymphatic: Reports no additional hematologic/lymphatic complaints Allergic/Immunologic: Allergic/Immunologic: Reports no additional allergic/immunologic complaints [facility] Past Medical History Attestation statement: The following information was validated with the patient. Source: old records reviewed Medical History Anxiety Asthma Constipation Depression Discoid lupus Dyslipidemia Elevated LFTs Fibromyalgia GERD without esophagitis Insomnia Lumbar degenerative disc disease Migraine Obesity (BMI 30-39.9) Vitamin D deficiency Surgical History H/O hand surgery History of colonoscopy History of foot surgery History of laparoscopic appendectomy History of lumbar surgery History of sinus surgery History of tubal ligation S/P total abdominal hysterectomy Family History Family History Father Heart disease Hypertension Stroke CVD (cardiovascular disease) Mother Hypertension Asthma Diabetes Sister Diabetes Hypertension Other Mental problem Social History Social History Housing: House Alcohol intake: never Patient Tobacco Use Status: Current everyday Tobacco user Cigarettes Per Day: 10 Second Hand Smoke Exposure: Yes Advance Directives: No Advance Directives Information Provided: No service: No Current occupational status: disabled Cognitive needs: No Hearing needs: No Vision needs: Yes Physical Exam ED Vital Signs: Vital Signs - 24 hr 06/03/22 11:17 06/03/22 15:01 Temperature 98 F 98 F Pulse Rate 84 95 Respiratory Rate 22 H 18 Blood Pressure 157/77 H 151/72 H Pulse Oximetry 94 93 Oxygen Delivery Method Room Air Room Air BMI result Body Mass Index 32.9 Const General: cooperative, no acute distress, alert and awake Nutritional Appearance: well nourished Orientation/consciousness: patient oriented x3 Limitations: no limitations HENMT Head: Yes normal to inspection and Yes atraumatic Ears: hearing grossly normal bilaterally and external ears normal General nose exam: Normal external nose present, no nasal discharge noted and no epistaxis Face and sinus: Yes normal facial exam, No abrasion and No laceration Mouth: Normal oral and palatal mucosa present, no drooling and no muffled voice Eyes General: appearance normal, both eyes and all related structures Periorbital: periorbital findings normal Eyelids: Yes eyelids normal Conjunctivae: conjunctivae normal Pupils: Equal, round and reactive pupils present EOM: EOMs intact bilaterally Neck Neck: Yes normal visual inspection, Yes full ROM and Yes no lymphadenopathy Chest Chest palpation & inspection: normal inspection of the chest Resp Effort & Inspection: normal respiratory effort and able to speak in complete sentences Auscultation: clear to auscultation bilaterally Cardio Rate: regular rate Rhythm: regular rhythm GI Inspection: Yes normal to inspection Neuro General: patient oriented x3 and moves all extremities Cranial nerves: Yes Equal, round and reactive pupils present Cognition (Neuro): normal cognition Motor exam (neuro): 5/5 motor strength present throughout Sensory Exam: Normal double simultaneous stimulation for sensation Coordination: [id number] test normal Extrem General: Yes normal to inspection, Yes full ROM and Yes capillary refill normal Psych Appearance: grossly normal Mental Status: mental status grossly normal Affect: normal affect Attitude: cooperative Thought process: Normal thought process present Thought content: Normal thought content present Insight: Good insight present (Psych) Medical Decision Making MDM Narrative Medical decision making narrative: Patient is a 61 year old assigned female at with a history of asthma and fibromyalgia presenting to the emergency department today with a cough. Patient's physical exam was unremarkable. Patient's rapid RSV test was positive. Patient's EKG was unremarkable. Patient's chest x-ray showed no acute process. I explained my physical exam findings as well as all test results to the patient. I answered all questions asked by the patient. I stressed the importance of the patient taking her medication as prescribed. I stressed the importance of the patient following up with her primary care provider. I stressed the importance of the patient returning to the emergency department immediately if her symptoms were to worsen or if she were to develop any dizziness, shortness of breath, difficulty breathing, chest pain, blurry vision, loss of vision, nausea, vomiting, abdominal pain, fever, chills, back pain, or any other complaints. Patient verbalized agreement and understanding with this treatment plan and discharge. Medical Records Medical records reviewed: Yes I reviewed the patient's medical records. Lab Data Lab results reviewed: Yes I reviewed the patient's lab results. Labs: Lab Results 06/03/22 Range/Units 11:20 Influenza Type A (PCR) NEGATIVE (Negative) Influenza Type B (PCR) NEGATIVE (Negative) RSV RNA Qual (PCR) POSITIVE A (Negative) SARS-CoV-2 RNA (RT-PCR) NEGATIVE (Negative) Imaging Data Chest x-ray: Attestation: I personally reviewed and interpreted this imaging study as follows: My impression: No acute process. Radiologist's impression: EXAMINATION: XR CHEST CLINICAL INFORMATION: Cough and shortness of breath COMPARISON: 07/19/2019 and 10/26/2021 TECHNIQUE: 2 views of the chest were obtained. FINDINGS: Lungs are well expanded and clear. Cardiac silhouette is normal in size. The hilar contours are normal. There is a chronic finding of mild osseous hypertrophy at the first rib ends. Multilevel osteophyte formation of the mildly degenerated thoracic spine. XR/XR chest 2V IMPRESSION: No evidence of pneumonia. No acute cardiopulmonary abnormality compared to 10/26/2021. Dictated By: Reed Rivera MD Signed By: Electronically signed by Reed Rivera MD 06/03/22 8066 ECG Data Attestation: I personally reviewed and interpreted this ECG as follows: Prior ECG tracings: available for review Interpretation: Vent. Rate: 083 BPM ? ? Atrial Rate: 083 BPM P-R Int: 136 ms? QRS Dur: 082 ms QT Int: 368 ms ? ? ? P-R-T Axes: 070 023 046 degrees QTc Int: 432 ms ? Sinus rhythm with occasional Premature ventricular complexes Otherwise normal ECG When compared with ECG of 14-MAR-2021 22:52, Premature ventricular complexes are now Present DD/ [id number] Discharge Plan Discharge Clinical Impression: Respiratory syncytial virus (RSV) Patient Disposition: Home, Self-Care Instructions: Respiratory Syncytial Virus (ED) Additional Instructions: Follow up with your primary care provider. Return to the emergency department immediately if your symptoms worsen or if you develop any dizziness, shortness of breath, difficulty breathing, chest pain, blurry vision, loss of vision, nausea, vomiting, abdominal pain, fever, chills, back pain, or any other complaints. Maddison un seguimiento con pelaez proveedor de atenci?n primaria. Regrese al departamento de emergencias de inmediato si jeancarlos s?ntomas empeoran o si presenta mareos, falta de aire, dificultad para respirar, dolor de pecho, visi?n borrosa, p?rdida de la visi?n, n?useas, v?mitos, dolor abdominal, fiebre, escalofr?os, dolor de espalda o cualquier otras quejas. Prescriptions: New prednisone 20 mg tablet 20 mg PO DAILY 12 Days Qty: 26 0RF Rx Instructions: Take 3 tablets for 5 days THEN; Take 2 tablets for 4 days THEN; Take 1 tablet for 3 days No Action miscellaneous medical supply Misc 1 ea miscellaneous .daily as needed 365 Days Qty: 1 0RF Rx Instructions: Shower Chair - Dx CODE: M51.36 - lumbar degenerative disc disease albuterol sulfate 2.5 mg /3 mL (0.083 %) solution for nebulization 2.5 mg inhalation TID PRN (Reason: shortness of breath or wheezing) Qty: 225 2RF clonazepam 0.5 mg tablet 0.5 mg PO BID PRN (Reason: anxiety) 30 Days Qty: 60 1RF atorvastatin 10 mg tablet 10 mg PO BEDTIME 30 Days Qty: 30 3RF omeprazole 20 mg capsule,delayed release(DR/EC) 20 mg PO DAILY 30 Days Qty: 30 2RF albuterol sulfate [ProAir HFA] 90 mcg/actuation HFA aerosol inhaler 2 puff PO QID PRN (Reason: shortness of breath or wheezing) 30 Days Qty: 8.5 5RF tizanidine 4 mg tablet 4 mg PO TID PRN (Reason: for muscle spasm) Qty: 90 1RF bupropion HCl 300 mg tablet extended release 24 hr 300 mg PO DAILY Qty: 90 0RF hydroxyzine HCl 10 mg tablet 10 mg PO BID PRN (Reason: for anxiety) Qty: 60 3RF docusate sodium 100 mg capsule 100 mg PO BID PRN (Reason: for constipation) Qty: 60 0RF aspirin 81 mg tablet,delayed release (DR/EC) 81 mg PO DAILY Qty: 90 3RF gabapentin 800 mg tablet 800 mg PO TID 30 Days Qty: 90 3RF salsalate 500 mg tablet 1,000 mg PO TID Qty: 180 0RF trazodone 50 mg tablet 50 mg PO BEDTIME PRN (Reason: sleep) 30 Days Qty: 30 1RF zolpidem 10 mg tablet 10 mg PO BEDTIME PRN (Reason: insomnia) 30 Days Qty: 30 1RF Spiriva with HandiHaler 18 mcg capsule, w/inhalation device 1 cap inhalation DAILY Qty: 30 3RF oxycodone-acetaminophen 10-325 mg tablet 1 tab PO Q6H PRN (Reason: pain) 28 Days Qty: 112 0RF topiramate 100 mg tablet 100 mg PO BID Qty: 60 2RF prednisone 20 mg tablet 60 mg PO DAILY 5 Days Qty: 15 0RF folic acid 1 mg tablet PO tacrolimus 0.1 % ointment topical BID fluocinonide 0.05 % ointment topical mycophenolate mofetil 500 mg tablet 500 mg PO BID cholecalciferol (vitamin D3) 50 mcg (2,000 unit) capsule 50 mcg PO DAILY 90 Days Qty: 90 3RF Referrals: Marcus Pedersen MD [Primary Care Provider] - Print Language: [place] Citizen
[2022-06-03 16:00] VITALS: BP 149/83; PULSE 79; RESP 18; TEMP 36.6; O2SAT 94
== END 2022-06-03 16:01 | disposition home or self-care (01) ==
PROVIDERS: Emergency Provider Student in an Organized Health Care Education/Training Program; PCP Internal Medicine
DX: J06.9 Acute upper respiratory infection, unspecified (principal); B97.4 Respiratory syncytial virus as the cause of diseases classified elsewhere; R07.89 Other chest pain; R06.02 Shortness of breath; R05.9 Cough, unspecified; Z20.822 Contact with and (suspected) exposure to COVID-19; Z79.899 Other long term (current) drug therapy; F17.210 Nicotine dependence, cigarettes, uncomplicated; Z71.6 Tobacco abuse counseling
CPT/HCPCS: 0241U; 71046; 93005; 99283

== ENCOUNTER 2022-08-27 10:48 | Outpatient (REF) | payer OTHER, SELFPAY ==
[2022-08-27 11:01] LABS: MANUAL DIFF FLAG NO
[2022-08-27 11:14] LABS: Basophils Percent Auto 0.5 % (0-2); Eosinophils Absolute Auto 0.2 X10*3/uL (0.0-0.4); Eosinophils Percent Auto 2.1 % (0-4); Hematocrit 46.6 % (37.0-47.0); Hemoglobin 15.8 g/dl (12.0-16.0); Imm Gran Abs Auto 0.02 X10*3/uL (0.00-0.03); Imm Gran Pct Auto 0.3 % (0.0-0.4); Lymphocytes Absolute Auto 3.3 X10*3/uL (1.2-4.9); Lymphocytes Percent Auto 41.6 % (20-40); Mean Corpuscular HGB Conc 33.9 g/dl (31.0-35.0); Mean Corpuscular Hemoglobin 29.4 pg (27.0-33.0); Mean Corpuscular Volume 86.8 fL (80.0-98.0); Mean Platelet Volume 10.2 fL (9.4-12.3); Monocytes Absolute Auto 0.6 X10*3/uL (0.1-1.2); Neutrophils Absolute Auto 3.8 x10*3/uL (2.0-8.3); Neutrophils Percent Auto 47.5 % (45-73); Platelet Count 249 X10*3/uL (160-400); Red Blood Count 5.37 X10*6/uL (4.20-5.50)
[2022-08-27 11:28] LABS: Appearance Urine Clear; Color Urine Yellow; Glucose Urine UA Negative (Negative); Leukocyte Esterase Urine Negative (Negative); Nitrite Urine Negative (Negative); PH 5.5 (5.0-9.0); Specific Gravity - Urine 1.015 (1.005-1.025); Urine Blood Negative (Negative); Urine Ketones Negative (Negative); Urine Protein Negative (Neg-Trace)
[2022-08-27 12:48] LABS: Alanine Aminotransferase 39 U/L (0-31); Albumin Level 4.2 g/dL (3.5-5.0); Alkaline Phosphatase 152 U/L (39-117); Anion Gap 11 (12-20); Aspartate Amino Transferase 30 U/L (5-31); Blood Urea Nitrogen 12 mg/dL (9-16); Calcium 9.9 mg/dL (8.4-10.2); Carbon Dioxide 30 mmol/L (22-29); Chloride 106 mmol/L (96-108); Cholesterol 193 mg/dL; Estimated Glomerular Filt Rate > 60; Glucose Fasting 88 mg/dL (60-99); HDL Cholesterol 51 mg/dL; LDL Cholesterol Calculated 124 mg/dl; Potassium 4.3 mmol/L (3.3-5.1); Sodium 143 mmol/L (135-145); Triglycerides 92 mg/dL
[2022-08-27 13:09] LABS: TSH reflex Free T4 1.31 uIU/mL (0.32-4.0); Vitamin D 25-OH Total 19.7 ng/mL (>30)
== END 2022-08-27 10:49 | disposition home or self-care (01) ==
LOC: HO.LAB 10:48
PROVIDERS: PCP Internal Medicine; Visit Provider Internal Medicine
DX: E78.00 Pure hypercholesterolemia, unspecified (principal); R30.0 Dysuria; E55.9 Vitamin D deficiency, unspecified; I10 Essential (primary) hypertension
CPT/HCPCS: 36415; 80053; 80061; 81003; 82306; 84443; 85025

== ENCOUNTER 2022-12-05 16:51 | Emergency (ER) | payer OTHER, SELFPAY ==
[2022-12-05 18:01] VITALS: BP 161/73; PULSE 83; RESP 16; TEMP 36.7; O2SAT 93; BMI 14.6
--- NOTE | 2022-12-05 18:02 | ED.SKABFB ---
HPI - Skin/Abscess/Foreign Bdy General Chief complaint: Skin/Abscess/Foreign Body <AUGUSTO Strauss - Last Filed: 12/05/22 18:04> Stated complaint: facial rash <AUGUSTO Strauss - Last Filed: 12/05/22 18:04> Time Seen by Provider: 12/05/22 18:43 <AUGUSTO Strauss - Last Filed: 12/05/22 18:04> Source: patient <Marlin Cooney MD - Last Filed: 12/05/22 18:59> Mode of arrival: ambulatory <Marlin Cooney MD - Last Filed: 12/05/22 18:59> History of Present Illness HPI narrative: 62-year-old female who presents with complaints of facial rash that she developed after applying sunscreen while in the [place]. She states that it is mildly itchy and denies any new use of soaps or lotions. She states that this is never happened before and denies any associated fever or chills and has no rash anywhere else on her body. She also denies any difficulty breathing or swallowing. <Marlin Cooney MD - Last Filed: 12/05/22 18:59> Related Data Home medications: Home Medications Medication Instructions Recorded Confirmed fluocinonide 0.05 % topical topical 06/13/20 09/03/22 ointment folic acid 1 mg tablet mg PO 06/13/20 09/03/22 tacrolimus 0.1 % topical ointment topical BID 06/13/20 09/03/22 mycophenolate mofetil 500 mg tablet 500 mg PO BID 04/19/22 09/03/22 Previous Rx's Medication Instructions Recorded miscellaneous medical supply 1 ea miscellaneous .daily as 09/18/20 needed 365 days #1 ea cholecalciferol (vitamin D3) 50 50 mcg PO DAILY 90 days #90 caps 09/17/21 mcg (2,000 unit) capsule albuterol sulfate 2.5 mg/3 mL 2.5 mg (3 mL) inhalation TID PRN 09/24/21 (0.083 %) solution for nebulization shortness of breath or wheezing #225 mL tizanidine 4 mg tablet 4 mg PO TID PRN for muscle spasm 04/17/22 #90 tabs clonazepam 0.5 mg tablet 0.5 mg PO BID PRN anxiety 30 days 06/17/22 #60 tabs SHOWER CHAIR #1 ea 07/17/22 WHEELCHAIR (standard lightweight) #1 ea 07/17/22 trazodone 50 mg tablet 50 mg PO BEDTIME PRN sleep 30 days 08/08/22 #30 tabs GRAB BAR #1 ea 08/14/22 walker (Ultra-Light Rollator misc) #1 ea 08/14/22 cholecalciferol (vitamin D3) 50 50 mcg PO DAILY 90 days #90 caps 09/03/22 mcg (2,000 unit) capsule omeprazole 20 mg capsule,delayed 20 mg PO DAILY #90 caps 09/05/22 release salsalate 500 mg tablet 1,000 mg PO TID #180 tabs 09/05/22 ProAir HFA 90 mcg/actuation 2 puff PO QID PRN shortness of 09/10/22 aerosol inhaler (albuterol sulfate) breath or wheezing 30 days #8.5 grams atorvastatin 10 mg tablet 10 mg PO BEDTIME 30 days #30 tabs 09/10/22 tiotropium bromide 18 mcg capsule 1 cap inhalation DAILY #30 ea 09/10/22 with inhalation device (Spiriva with HandiHaler) ROLLATOR #1 ea 09/25/22 aspirin 81 mg tablet,delayed 81 mg PO DAILY #90 tabs 10/14/22 release gabapentin 800 mg tablet 800 mg PO TID 30 days #90 tabs 10/14/22 bupropion HCl 300 mg 24 hr tablet, 300 mg PO DAILY #90 tabs 10/25/22 extended release varenicline 0.5 mg tablet 0.5 mg PO BID 3 days #6 tabs 11/04/22 varenicline 0.5 mg tablet 0.5 mg PO DAILY 3 days #3 tabs 11/04/22 varenicline 1 mg tablet 1 mg PO BID 28 days #56 tabs 11/04/22 oxycodone-acetaminophen 10 mg-325 1 tab PO Q6H PRN pain 28 days #112 11/06/22 mg tablet tabs docusate sodium 100 mg capsule 100 mg PO BID PRN for constipation 11/08/22 #60 caps topiramate 100 mg tablet 100 mg PO BID #180 tabs 11/08/22 zolpidem 10 mg tablet 10 mg PO BEDTIME PRN insomnia 30 11/13/22 days #30 tabs hydroxyzine HCl 10 mg tablet 10 mg PO BID PRN for anxiety #60 11/24/22 tabs diphenhydramine HCl 2 % topical 1 appl topical BID 5 days #103 mL 12/05/22 gel (Benadryl) prednisone 50 mg tablet 50 mg PO DAILY 4 days #4 tabs 12/05/22 <AUGUSTO Strauss - Last Filed: 12/05/22 18:04> Allergies/Adverse reactions: Allergies Allergy/AdvReac Type Severity Reaction Status Date / Time hydroxychloroquine Allergy Intermediate SHORTNESS, Verified 09/03/22 15:01 [From [facility]] CHEST TIGHTNESS , RASH oseltamivir Allergy Unknown Unknown Verified 09/03/22 15:01 <AUGUSTO Strauss - Last Filed: 12/05/22 18:04> Review of Systems Review of Systems: Pertinent positives and negatives as stated in HPI <Marlin Cooney MD - Last Filed: 12/05/22 18:59> PMFSH Past Medical History Source: nursing notes reviewed <Marlin Cooney MD - Last Filed: 12/05/22 18:59> Medical History: Medical History Anxiety Asthma Constipation Depression Discoid lupus Dyslipidemia Elevated LFTs Fibromyalgia GERD without esophagitis Insomnia Lumbar degenerative disc disease Migraine Obesity (BMI 30-39.9) Vitamin D deficiency <AUGUSTO Strauss - Last Filed: 12/05/22 18:04> Surgical History: Surgical History H/O hand surgery History of colonoscopy History of foot surgery History of laparoscopic appendectomy History of lumbar surgery History of sinus surgery History of tubal ligation S/P total abdominal hysterectomy <AUGUSTO Strauss - Last Filed: 12/05/22 18:04> Family History Family History: Family History Father Heart disease Hypertension Stroke CVD (cardiovascular disease) Mother Hypertension Asthma Diabetes Sister Diabetes Hypertension Other Mental problem <AUGUSTO Strauss - Last Filed: 12/05/22 18:04> Social History Social History: Social History Housing: House Alcohol intake: never Patient Tobacco Use Status: Current everyday Tobacco user Cigarettes Per Day: 10 Second Hand Smoke Exposure: Yes Advance Directives: No Advance Directives Information Provided: No service: No Current occupational status: disabled Cognitive needs: No Hearing needs: No Vision needs: Yes <AUGUSTO Strauss - Last Filed: 12/05/22 18:04> Physical Exam Vital Signs: Vital Signs: Last Vital Signs Temp 98.0 F 12/05/22 18:01 Pulse 83 12/05/22 18:01 Resp 16 12/05/22 18:01 BP 161/73 H 12/05/22 18:01 Pulse Ox 93 12/05/22 18:01 O2 Del Method Room Air 12/05/22 18:01 BMI result Body Mass Index 14.6 <AUGUSTO Strauss - Last Filed: 12/05/22 18:04> Vital Signs: Last Vital Signs Temp 98.0 F 12/05/22 18:01 Pulse 83 12/05/22 18:01 Resp 16 12/05/22 18:01 BP 161/73 H 12/05/22 18:01 Pulse Ox 93 12/05/22 18:01 O2 Del Method Room Air 12/05/22 18:01 BMI result Body Mass Index 14.6 VITAL SIGNS: Reviewed. GENERAL: Well developed, well nourished, in no acute distress. HEAD: Normocephalic/atraumatic EYES: PERRLA, EOMI EARS: Ext canals without abnormality NOSE: Nares patent bilateral OROPHARYNX: no oral lesions noted, posterior pharynx clear, no facial/lip/tongue swelling NECK: Supple, no adenopathy LUNGS: Normal breath sounds. No adventitious sounds or accessory muscle use. SpO2<93> CARDIOVASCULAR: Regular rate and rhythm without noted murmurs ABDOMEN: Soft, non-tender, non-distended with bowel sounds. MUSCULOSKELETAL: No tenderness, deformities, or effusions noted on gross inspection. EXTREMITIES: No cyanosis, clubbing or edema. SKIN: Inspection of the skin reveals a facial rash there is no rash noted to any extremities or thorax NEUROLOGIC: Alert and oriented x 4. Strength and sensation to light touch were grossly intact x 4. <Marlin Cooney MD - Last Filed: 12/05/22 18:59> Course Course Course Narrative: This is an RME: Additional HPI, ROS, PE not included below will be deferred to primary provider. 62 yo f hx of SLE presents w/ facial rash, attributes it to sun exposure in [facility] [place] rash started 4 days ago. Painful and draining per patient. No new lotions or facial products. No SOB, difficulty swallowing. Came back from last night PE w/ rash to face in malar distribution but also affecting forehead, chin <AUGUSTO Strauss - Last Filed: 12/05/22 18:04> Medications Administered Discontinued Medications Generic Name Dose Route Start Last Admin Trade Name Freq PRN Reason Stop Dose Admin Diphenhydramine HCl 50 mg 12/05/22 18:04 12/05/22 18:43 Diphenhydramine Hcl 50 Mg/Ml Vial IVPUSH 12/05/22 18:05 50 mg ONCE ONE Administration Methylprednisolone Sodium Succinate 125 mg 12/05/22 18:04 12/05/22 18:44 Methylprednisolone Sod Succ 125 Mg/2 Ml Vial IVPUSH 12/05/22 18:05 125 mg ONCE ONE Administration <AUGUSTO Strauss - Last Filed: 12/05/22 18:04> Medications Administered Discontinued Medications Generic Name Dose Route Start Last Admin Trade Name Freq PRN Reason Stop Dose Admin Diphenhydramine HCl 50 mg 12/05/22 18:04 12/05/22 18:43 Diphenhydramine Hcl 50 Mg/Ml Vial IVPUSH 12/05/22 18:05 50 mg ONCE ONE Administration Methylprednisolone Sodium Succinate 125 mg 12/05/22 18:04 12/05/22 18:44 Methylprednisolone Sod Succ 125 Mg/2 Ml Vial IVPUSH 12/05/22 18:05 125 mg ONCE ONE Administration <Marlin Cooney MD - Last Filed: 12/05/22 18:59> Medical Decision Making Medical Decision Making MDM Narrative: 62-year-old female with history and clinical presentation most consistent with contact reaction to sunscreen as the use of the sunscreen would pre clue this from being a characteristic exacerbation due to exposure to UVA and UVB. Patient received steroids and IV Benadryl while here in the emergency room and is otherwise doing well and there are no signs of angioedema or anaphylaxis. I will provided prescription for Benadryl cream and strongly encouraged patient to follow-up with primary care provider for further evaluation. <Marlin Cooney MD - Last Filed: 12/05/22 18:59> Differential Diagnosis Please see the discussion above <Marlin Cooney MD - Last Filed: 12/05/22 18:59> Discharge Plan Discharge Clinical Impression: Contact dermatitis, Discoid lupus <AUGUSTO Strauss - Last Filed: 12/05/22 18:04> Patient Disposition: Home, Self-Care <AUGUSTO Strauss - Last Filed: 12/05/22 18:04> Instructions: Contact Dermatitis (ED) <AUGUSTO Strauss - Last Filed: 12/05/22 18:04> Additional Instructions: 1. Resume all home medications as prescribed. 2. Call the office of your primary care provider 1st thing in the morning to set up an appointment for re-evaluation and further outpatient management. Return to the ER for any worsening symptoms. <AUGUSTO Strauss - Last Filed: 12/05/22 18:04> Prescriptions: New prednisone 50 mg tablet 50 mg PO DAILY 4 Days Qty: 4 0RF Benadryl 2 % gel 1 appl topical BID 5 Days Qty: 103 0RF No Action miscellaneous medical supply Misc 1 ea miscellaneous .daily as needed 365 Days Qty: 1 0RF Rx Instructions: Shower Chair - Dx CODE: M51.36 - lumbar degenerative disc disease albuterol sulfate 2.5 mg /3 mL (0.083 %) solution for nebulization 2.5 mg inhalation TID PRN (Reason: shortness of breath or wheezing) Qty: 225 2RF tizanidine 4 mg tablet 4 mg PO TID PRN (Reason: for muscle spasm) Qty: 90 1RF clonazepam 0.5 mg tablet 0.5 mg PO BID PRN (Reason: anxiety) 30 Days Qty: 60 1RF trazodone 50 mg tablet 50 mg PO BEDTIME PRN (Reason: sleep) 30 Days Qty: 30 2RF (DME) Ultra-Light Rollator Misc See Rx Instructions .Route Qty: 1 0RF Rx Instructions: As directed (DME) GRAB BAR See Rx Instructions .Route .MEDSUPPLY Qty: 1 0RF Rx Instructions: As directed omeprazole 20 mg capsule,delayed release(DR/EC) 20 mg PO DAILY Qty: 90 2RF salsalate 500 mg tablet 1,000 mg PO TID Qty: 180 0RF atorvastatin 10 mg tablet 10 mg PO BEDTIME 30 Days Qty: 30 3RF albuterol sulfate [ProAir HFA] 90 mcg/actuation HFA aerosol inhaler 2 puff PO QID PRN (Reason: shortness of breath or wheezing) 30 Days Qty: 8.5 5RF Spiriva with HandiHaler 18 mcg capsule, w/inhalation device 1 cap inhalation DAILY Qty: 30 3RF (DME) ROLLATOR See Rx Instructions .Route .MEDSUPPLY Qty: 1 0RF Rx Instructions: As directed aspirin 81 mg tablet,delayed release (DR/EC) 81 mg PO DAILY Qty: 90 3RF gabapentin 800 mg tablet 800 mg PO TID 30 Days Qty: 90 3RF bupropion HCl 300 mg tablet extended release 24 hr 300 mg PO DAILY Qty: 90 1RF varenicline 0.5 mg tablet 0.5 mg PO DAILY 3 Days Qty: 3 0RF Rx Instructions: administer on days 1, 2, and 3 of therapy varenicline 0.5 mg tablet 0.5 mg PO BID 3 Days Qty: 6 0RF Rx Instructions: administer on days 4, 5, and 6 of therapy varenicline 1 mg tablet 1 mg PO BID 28 Days Qty: 56 3RF oxycodone-acetaminophen 10-325 mg tablet 1 tab PO Q6H PRN (Reason: pain) 28 Days Qty: 112 0RF topiramate 100 mg tablet 100 mg PO BID Qty: 180 0RF docusate sodium 100 mg capsule 100 mg PO BID PRN (Reason: for constipation) Qty: 60 0RF zolpidem 10 mg tablet 10 mg PO BEDTIME PRN (Reason: insomnia) 30 Days Qty: 30 1RF hydroxyzine HCl 10 mg tablet 10 mg PO BID PRN (Reason: for anxiety) Qty: 60 3RF folic acid 1 mg tablet PO tacrolimus 0.1 % ointment topical BID fluocinonide 0.05 % ointment topical mycophenolate mofetil 500 mg tablet 500 mg PO BID cholecalciferol (vitamin D3) 50 mcg (2,000 unit) capsule 50 mcg PO DAILY 90 Days Qty: 90 3RF (DME) WHEELCHAIR (standard lightweight) See Rx Instructions .Route .MEDSUPPLY Qty: 1 0RF Rx Instructions: As directed (DME) SHOWER CHAIR See Rx Instructions .Route .MEDSUPPLY Qty: 1 0RF Rx Instructions: As directed cholecalciferol (vitamin D3) 50 mcg (2,000 unit) capsule 50 mcg PO DAILY 90 Days Qty: 90 3RF <AUGUSTO Strauss - Last Filed: 12/05/22 18:04> Referrals: Marcus Pedersen MD [Primary Care Provider] - <AUGUSTO Strauss - Last Filed: 12/05/22 18:04> Interventions: ED Discharge Assessment Last Done: 12/05/22 18:50 <AUGUSTO Strauss - Last Filed: 12/05/22 18:04>
[2022-12-05] MEDS: diphenhydrAMINE HCL 50 MG/ML VIAL IVPUSH (18:43)
[2022-12-05] MEDS: methylPREDNISolone Sod Succ 125 MG/2 ML VIAL IVPUSH (18:44)
== END 2022-12-05 19:24 | disposition home or self-care (01) ==
PROVIDERS: Emergency Provider Student in an Organized Health Care Education/Training Program; PCP Internal Medicine
DX: L25.9 Unspecified contact dermatitis, unspecified cause (principal); H01.129 Discoid lupus erythematosus of unspecified eye, unspecified eyelid; F17.210 Nicotine dependence, cigarettes, uncomplicated
CPT/HCPCS: 96374; 96375; 99284; J1200; J2930

== ENCOUNTER 2023-03-18 13:41 | Outpatient (RCR) | payer OTHER, SELFPAY | END 2023-04-14 10:31 | disposition home or self-care (01) | LOC: HO.PT 13:41 | PROVIDERS: PCP Internal Medicine; Visit Provider Physician Assistant | DX: M54.9 Dorsalgia, unspecified (principal); M25.551 Pain in right hip; M25.552 Pain in left hip; M79.604 Pain in right leg; M79.605 Pain in left leg | CPT/HCPCS: 97163 ==

== ENCOUNTER 2023-03-19 12:36 | Emergency (ER) | payer OTHER, SELFPAY ==
--- NOTE | ~2023-03-19 | XR_ITS ---
EXAMINATION: XR FOOT, RIGHT CLINICAL INFORMATION: Right foot pain and swelling. COMPARISON: None available. TECHNIQUE: AP, lateral, and oblique views of the right foot. An indicator arrow points to the first metatarsal. FINDINGS: There is a mild hallux valgus deformity. Mild soft tissue fullness is seen medial to the distal head of the first metatarsal. The remainder the digits are intact. The tarsal bones are normally aligned. Incidental type I accessory navicular bone. XR/XR foot RT min 3V IMPRESSION: Mild hallux valgus deformity and probable associated adjacent soft tissue thickening/fullness medially without acute abnormality.
--- NOTE | ~2023-03-19 | US_ITS ---
EXAMINATION: US VENOUS ULTRASOUND WITH DOPPLER LOWER EXTREMITY, RIGHT CLINICAL INFORMATION: AV block. Rule out DVT COMPARISON: None available. TECHNIQUE: Ultrasound of the deep veins is performed from the hip to the calf with compression sonography and color and pulse Doppler assessment. Spectral analysis with color-flow imaging is performed. FINDINGS: There is normal venous compression and respiratory variation and augmented flow. The visualized common femoral vein, superficial femoral vein, profunda femoral vein, popliteal vein, and the trifurcation region shows no evidence of deep venous thrombosis. There is no significant popliteal fossa cyst. If the patient's symptoms persist, followup ultrasound in 5 days 7 days might be of value to exclude proximal propagation from a non-visualized calf vein. US/US venous duplex LE RT IMPRESSION: No DVT demonstrated in the right lower extremity.
[2023-03-19 12:41] VITALS: BP 165/82; PULSE 100; RESP 18; TEMP 36.7; O2SAT 98; BMI 39.1
--- NOTE | 2023-03-19 12:42 | ED_ITS ---
HPI - Extremity Injury (Lower) General Chief Complaint: Extremity Problem Stated Complaint: L Foot Pain Time Seen by Provider: 03/19/23 13:22 Source: patient and monitoring and evaluation advisor Mode of arrival: ambulatory Limitations: language barrier History of Present Illness HPI Narrative: Patient is a 62 year old assigned female at with a history of anxiety and asthma presenting to the emergency department today with right foot pain. Patient states that over the last 2 days she has had swelling and pain in her right foot. Patient denies any dizziness, lightheadedness, abdominal pain, nausea, vomiting, fever, chills, blurry vision, double vision, loss of vision, chest pain, difficulty breathing, shortness of breath, back pain, night sweats, pain with urination, increased urinary frequency, increased urinary urgency, b lood in her urine or stool, syncope or a near syncopal episode, recent trauma or falls, bowel incontinence, bladder incontinence, bowel retention, bladder retention, or any other complaints at this time. Onset (ago): day(s) (2) Severity: mild Severity scale (1-10): 2 Relieving factors: nothing Exacerbating factors: nothing Related Data Home Medications Medication Instructions Recorded Confirmed fluocinonide 0.05 % topical topical 06/13/20 12/09/22 ointment tacrolimus 0.1 % topical ointment topical BID 06/13/20 12/09/22 mycophenolate mofetil 500 mg tablet 500 mg PO BID 04/19/22 12/09/22 Previous Rx's Medication Instructions Recorded miscellaneous medical supply 1 ea miscellaneous .daily as 09/18/20 needed 365 days #1 ea SHOWER CHAIR #1 ea 07/17/22 WHEELCHAIR (standard lightweight) #1 ea 07/17/22 GRAB BAR #1 ea 08/14/22 walker (Ultra-Light Rollator misc) #1 ea 08/14/22 cholecalciferol (vitamin D3) 50 50 mcg PO DAILY 90 days #90 caps 09/03/22 mcg (2,000 unit) capsule salsalate 500 mg tablet 1,000 mg PO TID #180 tabs 09/05/22 ProAir HFA 90 mcg/actuation 2 puff PO QID PRN shortness of 09/10/22 aerosol inhaler (albuterol sulfate) breath or wheezing 30 days #8.5 grams ROLLATOR #1 ea 09/25/22 varenicline 0.5 mg tablet 0.5 mg PO BID 3 days #6 tabs 11/04/22 varenicline 0.5 mg tablet 0.5 mg PO DAILY 3 days #3 tabs 11/04/22 diphenhydramine HCl 2 % topical 1 appl topical BID 5 days #103 mL 12/05/22 gel (Benadryl) prednisone 50 mg tablet 50 mg PO DAILY 4 days #4 tabs 12/05/22 albuterol sulfate 2.5 mg/3 mL 2.5 mg (3 mL) inhalation TID PRN 01/22/23 (0.083 %) solution for nebulization shortness of breath or wheezing #225 mL aspirin 81 mg tablet,delayed 81 mg PO DAILY #90 tabs 01/22/23 release bupropion HCl 300 mg 24 hr tablet, 300 mg PO DAILY #90 tabs 01/22/23 extended release cetirizine 10 mg tablet 10 mg PO DAILY PRN allergy 01/22/23 symptoms 90 days #90 tabs cholecalciferol (vitamin D3) 50 50 mcg PO DAILY 90 days #90 caps 01/22/23 mcg (2,000 unit) capsule docusate sodium 100 mg capsule 100 mg PO BID PRN for constipation 01/22/23 #60 caps gabapentin 800 mg tablet 800 mg PO TID 30 days #90 tabs 01/22/23 hydroxyzine HCl 10 mg tablet 10 mg PO BID PRN for anxiety #60 01/22/23 tabs omeprazole 20 mg capsule,delayed 20 mg PO DAILY #90 caps 01/22/23 release tiotropium bromide 18 mcg capsule 1 cap inhalation DAILY #30 ea 01/22/23 with inhalation device (Spiriva with HandiHaler) topiramate 100 mg tablet 100 mg PO BID #180 tabs 01/22/23 trazodone 50 mg tablet 50 mg PO BEDTIME PRN sleep 30 days 01/22/23 #30 tabs clonazepam 0.5 mg tablet 0.5 mg PO BID PRN anxiety 30 days 01/27/23 #60 tabs tizanidine 4 mg tablet 4 mg PO TID PRN for muscle spasm 01/27/23 #90 tabs varenicline 1 mg tablet 1 mg PO BID 28 days #56 tabs 01/27/23 tacrolimus 0.03 % topical ointment 1 appl topical BID #60 grams 01/28/23 oxycodone-acetaminophen 10 mg-325 1 tab PO Q6H PRN pain 28 days #112 02/07/23 mg tablet tabs atorvastatin 10 mg tablet 10 mg PO BEDTIME #90 tabs 02/24/23 folic acid 1 mg tablet 1 mg PO DAILY #90 tabs 02/24/23 oxycodone 10 mg tablet 10 mg PO Q6H PRN pain 28 days #112 03/05/23 tabs zolpidem 10 mg tablet 10 mg PO BEDTIME PRN insomnia 30 03/05/23 days #30 tabs prednisone 20 mg tablet 20 mg PO DAILY 7 days #7 tabs 03/19/23 Allergies Allergy/AdvReac Type Severity Reaction Status Date / Time hydroxychloroquine Allergy Intermediate SHORTNESS, Verified 12/09/22 14:25 [From [facility]] CHEST TIGHTNESS , RASH oseltamivir Allergy Unknown Unknown Verified 12/09/22 14:25 Review of Systems Constitutional: Constitutional: Reports no additional constitutional complaints, Denies chills, Denies fever(s) and Denies night sweats Eyes: Eyes: Reports no additional eye complaints, Denies blurry vision, Denies change in vision, Denies diplopia, Denies eye discharge, Denies loss of vision and Denies eye pain ENT: Denies dizziness Cardiovascular: Cardiovascular: Reports no additional cardiovascular complaints, Denies chest pain, Denies lightheadedness, Denies Loss of Consciousness and Denies dyspnea Respiratory: Respiratory: Reports no additional respiratory complaints and Denies dyspnea Gastrointestinal: Gastrointestinal: Reports no additional gastrointestinal complaints, Denies abdominal pain, Denies melena, Denies hematochezia, Denies change in bowel habits and Denies change in stool character Genitourinary: Genitourinary: Denies hematuria, Denies urinary frequency, Denies dysuria, Denies urinary incontinence, Denies urinary hesitancy and Denies urinary urgency Musculoskeletal: Musculoskeletal: Reports no additional musculoskeletal complaints, Denies numbness and Denies tingling Comments: right foot pain and swelling Neurologic: Denies dizziness, Denies loss of vision, Denies numbness and Denies tingling Psychiatric: Psychiatric: Reports no additional psychiatric complaints Endocrine: Endocrine: Reports no additional endocrine complaints Hematologic/Lymphatic: Hematologic/Lymphatic: Reports no additional hematologic/lymphatic complaints Allergic/Immunologic: Allergic/Immunologic: Reports no additional allergic/immunologic complaints PMFSH Past Medical History Attestation statement: The following information was validated with the patient. Source: old records reviewed and nursing notes reviewed Medical History Anxiety Asthma Constipation Dental abscess Depression Discoid lupus Dyslipidemia Elevated LFTs Fibromyalgia GERD without esophagitis Insomnia Lumbar degenerative disc disease Migraine Obesity (BMI 30-39.9) Preoperative clearance Preoperative examination RSV bronchitis Vitamin D deficiency Surgical History H/O hand surgery History of colonoscopy History of foot surgery History of laparoscopic appendectomy History of lumbar surgery History of sinus surgery History of tubal ligation S/P total abdominal hysterectomy Family History Family History Father Heart disease Hypertension Stroke CVD (cardiovascular disease) Mother Hypertension Asthma Diabetes Sister Diabetes Hypertension Other Mental problem Social History Social History Housing: House Alcohol intake: never Patient Tobacco Use Status: Current everyday Tobacco user Cigarettes Per Day: 10 e-Cigarette/Vaping Use: Never Used Second Hand Smoke Exposure: Yes Advance Directives: No service: No Current occupational status: disabled Cognitive needs: No Hearing needs: No Vision needs: Yes Physical Exam Vital Signs: Vital Signs: Last Vital Signs Temp 98.0 F 03/19/23 12:41 Pulse 100 03/19/23 12:41 Resp 18 03/19/23 12:41 BP 165/82 H 03/19/23 12:41 Pulse Ox 98 03/19/23 12:41 O2 Del Method Room Air 03/19/23 12:41 BMI result Body Mass Index 39.1 Const: General: cooperative, no acute distress, alert and awake Nutritional Appearance: well nourished Orientation/consciousness: patient oriented x3 Limitations: no limitations HEENT: Head: Yes normal to inspection and Yes atraumatic Ears: hearing grossly normal bilaterally and external ears normal General nose exam: Normal external nose present, no nasal discharge noted and no epistaxis Face and sinus: Yes normal facial exam, No abrasion and No laceration Mouth: Normal oral and palatal mucosa present, no drooling and no muffled voice Eyes: General: appearance normal, both eyes and all related structures Periorbital: periorbital findings normal Eyelids: Yes eyelids normal Conjunctivae: conjunctivae normal Pupils: Equal, round and reactive pupils present EOM: EOMs intact bilaterally Neck: Neck: Yes normal visual inspection, Yes full ROM and Yes no lymphadenopathy Chest: Chest palpation & inspection: normal inspection of the chest Resp: Effort & Inspection: normal respiratory effort and able to speak in complete sentences Cardio: Rate: regular rate Rhythm: regular rhythm Peripheral pulses: Peripheral pulses 2+ throughout GI: Inspection: Yes normal to inspection Neuro: General: patient oriented x3 and moves all extremities Cranial nerves: Yes Equal, round and reactive pupils present Cognition (Neuro): normal cognition Motor exam (neuro): 5/5 motor strength present throughout Sensory Exam: Normal double simultaneous stimulation for sensation Coordination: [id number] test normal Extrem: Other: pain with palpation of the dorsal right foot but was otheriwse unremarkable General: Yes normal to inspection, Yes full ROM and Yes capillary refill normal Psych: Appearance: grossly normal Mental Status: mental status grossly normal Affect: normal affect Attitude: cooperative Thought process: Normal thought process present Thought content: Normal thought content present Insight: Good insight present (Psych) Course Course Course Narrative: RME: 8-year-old female with past history of fibromyalgia, depression, anxiety, GERD, HLD, asthma, complaining of atraumatic right foot pain and swelling. States was at physical therapy yesterday and told she had a fever. + right foot swelling with slight erythema, diffusely tender. 1+ pitting edema to RLE. No calf pain X-ray and venous duplex ultrasound ordered Full HPI, ROS and PE to be performed by primary ED provider. Medical Decision Making Medical Decision Making MDM Narrative: Patient is a 62 year old assigned female at with a history of asthma and depression presenting to the emergency department today with right foot pain. Patient's physical exam was as noted in the physical exam portion of this note. Patient's right foot x-ray showed a mild hallux valgus deformity but was otherwise unremarkable. Patient's right lower extremity US showed no acute process. I explained my physical exam findings as well as all test results to the patient. I answered all questions asked by the patient. I stressed the importance of the patient taking her medication as prescribed. I stressed the importance of the patient following up with her primary care provider and an orthopedic provider. I stressed the importance of the patient returning to the emergency department immediately if her symptoms were to worsen or if she were to develop any dizziness, shortness of breath, difficulty breathing, chest pain, blurry vision, loss of vision, nausea, vomiting, abdominal pain, fever, chills, back pain, or any other complaints. Patient verbalized agreement and understanding with this treatment plan and discharge. Differential Diagnosis Differential Diagnoses: The differential diagnosis associated with the presentation includes Right foot pain Right foot strain Right foot sprain Right foot gout Right foot arthritis Independent Interpretation I performed an independent interpretation of an: Plain X-Ray and Ultrasound Interpretation: My interpretation is in agreement with the radiologist's impression of these imaging studies. EXAMINATION: XR FOOT, RIGHT CLINICAL INFORMATION: Right foot pain and swelling.? COMPARISON: None available.? TECHNIQUE: AP, lateral, and oblique views of the right foot. An indicator arrow points to the first metatarsal. FINDINGS: There is a mild hallux valgus deformity. Mild soft tissue fullness is seen medial to the distal head of the first metatarsal. The remainder the digits are intact. The tarsal bones are normally aligned. Incidental type I accessory navicular bone. XR/XR foot RT min 3V IMPRESSION: Mild hallux valgus deformity and probable associated adjacent soft tissue thickening/fullness medially without acute abnormality. Dictated By: Kyrie Miller MD Signed By: Electronically signed by Kyrie Miller MD 03/19/23 1323 EXAMINATION:? US VENOUS ULTRASOUND WITH DOPPLER LOWER EXTREMITY, RIGHT CLINICAL INFORMATION:? AV block. Rule out DVT COMPARISON:? None available. TECHNIQUE: Ultrasound of the deep veins is performed from the hip to the calf with compression sonography and color and pulse Doppler assessment. Spectral analysis with color-flow imaging is performed. FINDINGS: There is normal venous compression and respiratory variation and augmented flow. The visualized common femoral vein, superficial femoral vein, profunda femoral vein, popliteal vein, and the trifurcation region shows no evidence of deep venous thrombosis. ? There is no significant popliteal fossa cyst. If the patient's symptoms persist, followup ultrasound in 5 days 7 days might be of value to exclude proximal propagation from a non-visualized calf vein. US/US venous duplex LE RT IMPRESSION: No DVT demonstrated in the right lower extremity. Dictated By: Dinesh Perez MD Signed By: Electronically signed by Dinesh Perez MD 03/19/23 3623 Radiology Impression Discussion of test interpretation with radiology: I have reviewed the radiologist's reading. Prescription Management I considered prescription management with: Other (oral prednisone prescribed) Discharge Plan Discharge Clinical Impression: Acute foot pain Patient Disposition: Home, Self-Care Instructions: Arthralgia (ED) Additional Instructions: Follow up with your primary care provider and an orthopedic provider. Return to the emergency department immediately if your symptoms worsen or if you develop any dizziness, shortness of breath, difficulty breathing, chest pain, blurry vision, loss of vision, nausea, vomiting, abdominal pain, fever, chills, back p ain, or any other complaints. Lily un seguimiento con pelaez proveedor de atenci?n primaria y un proveedor ortop?dico. Regrese al departamento de emergencias de inmediato si jeancarlos s?ntomas empeoran o si presenta mareos, falta de aire, dificultad para respirar, dolor de pecho, visi?n borrosa, p?rdida de la visi?n, n?useas, v?mitos, dolor abdominal, fiebre, escalofr?os, dolor de espalda o cualquier otras quejas. Prescriptions: New prednisone 20 mg tablet 20 mg PO DAILY 7 Days Qty: 7 0RF No Action miscellaneous medical supply [facility] 1 ea miscellaneous .daily as needed 365 Days Qty: 1 0RF Rx Instructions: Shower Chair - Dx CODE: M51.36 - lumbar degenerative disc disease (DME) Ultra-Light Rollator [facility] [place] See Rx Instructions .Route Qty: 1 0RF Rx Instructions: As directed (DME) GRAB BAR See Rx Instructions .Route .MEDSUPPLY Qty: 1 0RF Rx Instructions: As directed salsalate 500 mg tablet 1,000 mg PO TID Qty: 180 0RF albuterol sulfate [ProAir HFA] 90 mcg/actuation HFA aerosol inhaler 2 puff PO QID PRN (Reason: shortness of breath or wheezing) 30 Days Qty: 8.5 5RF (DME) ROLLATOR See Rx Instructions .Route .MEDSUPPLY Qty: 1 0RF Rx Instructions: As directed varenicline 0.5 mg tablet 0.5 mg PO DAILY 3 Days Qty: 3 0RF Rx Instructions: administer on days 1, 2, and 3 of therapy varenicline 0.5 mg tablet 0.5 mg PO BID 3 Days Qty: 6 0RF Rx Instructions: administer on days 4, 5, and 6 of therapy albuterol sulfate 2.5 mg /3 mL (0.083 %) solution for nebulization 2.5 mg inhalation TID PRN (Reason: shortness of breath or wheezing) Qty: 225 2RF aspirin 81 mg tablet,delayed release (DR/EC) 81 mg PO DAILY Qty: 90 3RF bupropion HCl 300 mg tablet extended release 24 hr 300 mg PO DAILY Qty: 90 1RF cetirizine 10 mg tablet 10 mg PO DAILY PRN (Reason: allergy symptoms) 90 Days Qty: 90 3RF cholecalciferol (vitamin D3) 50 mcg (2,000 unit) capsule 50 mcg PO DAILY 90 Days Qty: 90 3RF docusate sodium 100 mg capsule 100 mg PO BID PRN (Reason: for constipation) Qty: 60 3RF gabapentin 800 mg tablet 800 mg PO TID 30 Days Qty: 90 3RF hydroxyzine HCl 10 mg tablet 10 mg PO BID PRN (Reason: for anxiety) Qty: 60 3RF omeprazole 20 mg capsule,delayed release(DR/EC) 20 mg PO DAILY Qty: 90 2RF Spiriva with HandiHaler 18 mcg capsule, w/inhalation device 1 cap inhalation DAILY Qty: 30 3RF topiramate 100 mg tablet 100 mg PO BID Qty: 180 1RF trazodone 50 mg tablet 50 mg PO BEDTIME PRN (Reason: sleep) 30 Days Qty: 30 2RF varenicline 1 mg tablet 1 mg PO BID 28 Days Qty: 56 3RF tizanidine 4 mg tablet 4 mg PO TID PRN (Reason: for muscle spasm) Qty: 90 1RF clonazepam 0.5 mg tablet 0.5 mg PO BID PRN (Reason: anxiety) 30 Days Qty: 60 1RF tacrolimus 0.03 % ointment 1 appl topical BID Qty: 60 0RF oxycodone-acetaminophen 10-325 mg tablet 1 tab PO Q6H PRN (Reason: pain) 28 Days Qty: 112 0RF atorvastatin 10 mg tablet 10 mg PO BEDTIME Qty: 90 0RF folic acid 1 mg tablet 1 mg PO DAILY Qty: 90 0RF zolpidem 10 mg tablet 10 mg PO BEDTIME PRN (Reason: insomnia) 30 Days Qty: 30 1RF oxycodone 10 mg tablet 10 mg PO Q6H PRN (Reason: pain) 28 Days Qty: 112 0RF Rx Instructions: Partial Fill upon patient request. prednisone 50 mg tablet 50 mg PO DAILY 4 Days Qty: 4 0RF Benadryl 2 % gel 1 appl topical BID 5 Days Qty: 103 0RF tacrolimus 0.1 % ointment topical BID fluocinonide 0.05 % ointment topical mycophenolate mofetil 500 mg tablet 500 mg PO BID cholecalciferol (vitamin D3) 50 mcg (2,000 unit) capsule 50 mcg PO DAILY 90 Days Qty: 90 3RF (DME) WHEELCHAIR (standard lightweight) See Rx Instructions .Route .MEDSUPPLY Qty: 1 0RF Rx Instructions: As directed (DME) SHOWER CHAIR See Rx Instructions .Route .MEDSUPPLY Qty: 1 0RF Rx Instructions: As directed Referrals: [facility] [place] [facility] [Provider Group] (Call to establish and follow up with an orthopedic provider. If you already have an orthopedic provider, please follow up with them. Llame para establecer y hacer un seguimiento con un proveedor ortop?dico. Si ya tiene un proveedor ortop?dico, lily un seguimiento con ?l.) Marcus Pedersen MD [Primary Care Provider] - Stand Alone Forms: Work/School Release Interventions: ED Discharge Assessment Last Done: 03/19/23 14:47 Print Language: Kinyarwanda
== END 2023-03-19 14:48 | disposition home or self-care (01) ==
PROVIDERS: Emergency Provider Emergency Medicine; PCP Internal Medicine
DX: M79.671 Pain in right foot (principal); R60.0 Localized edema; F17.210 Nicotine dependence, cigarettes, uncomplicated; Z71.6 Tobacco abuse counseling; Z79.899 Other long term (current) drug therapy
CPT/HCPCS: 73630; 93971; 99283

== ENCOUNTER 2023-03-24 10:44 | Outpatient (REF) | payer OTHER, SELFPAY ==
[2023-03-24 10:58] LABS: MANUAL DIFF FLAG NO
[2023-03-24 11:13] LABS: Basophils Percent Auto 0.3 % (0-2); Eosinophils Absolute Auto 0.2 X10*3/uL (0.0-0.4); Eosinophils Percent Auto 2.1 % (0-4); Hematocrit 43.4 % (37.0-47.0); Hemoglobin 14.8 g/dl (12.0-16.0); Imm Gran Abs Auto 0.02 X10*3/uL (0.00-0.03); Imm Gran Pct Auto 0.3 % (0.0-0.4); Lymphocytes Absolute Auto 2.5 X10*3/uL (1.2-4.9); Lymphocytes Percent Auto 34.4 % (20-40); Mean Corpuscular HGB Conc 34.1 g/dl (31.0-35.0); Mean Corpuscular Hemoglobin 29.5 pg (27.0-33.0); Mean Corpuscular Volume 86.6 fL (80.0-98.0); Mean Platelet Volume 9.9 fL (9.4-12.3); Monocytes Absolute Auto 0.5 X10*3/uL (0.1-1.2); Monocytes Percent Auto 6.9 % (2-11); Platelet Count 275 X10*3/uL (160-400); Red Blood Count 5.01 X10*6/uL (4.20-5.50); Red Cell Distribution Width 13.2 % (11.0-16.0); White Blood Count 7.2 X10*3/uL (4.8-10.8)
[2023-03-24 11:45] LABS: Alanine Aminotransferase 57 U/L (0-31); Albumin Level 4.1 g/dL (3.5-5.0); Alkaline Phosphatase 123 U/L (39-117); Anion Gap 13 (12-20); Aspartate Amino Transferase 50 U/L (5-31); Bilirubin Total 0.5 mg/dL (0.0-1.0); Blood Urea Nitrogen 11 mg/dL (9-16); Carbon Dioxide 26 mmol/L (22-29); Chloride 109 mmol/L (96-108); Cholesterol 177 mg/dL (<200); Estimated Glomerular Filt Rate > 60; Glucose Fasting 101 mg/dL (60-99); HDL Cholesterol 44 mg/dL (>40); LDL Cholesterol Calculated 121 mg/dL (<100); Potassium 4.2 mmol/L (3.3-5.1); Sodium 144 mmol/L (135-145); Total Protein 8.5 g/dL (6.5-8.0); Triglycerides 62 mg/dL (<150)
[2023-03-24 11:56] LABS: TSH reflex Free T4 0.99 uIU/mL (0.32-4.0); Vitamin D 25-OH Total 33.1 ng/mL (>30)
[2023-03-24 12:22] LABS: Appearance Urine Clear; Color Urine Yellow; Glucose Urine UA Negative (Negative); Leukocyte Esterase Urine Trace (Negative); Nitrite Urine Negative (Negative); PH 5.5 (5.0-9.0); UMIC TRIGGER UACC YES; Urine Blood Negative (Negative); Urine Ketones Negative (Negative); Urine Protein Negative (Neg-Trace)
[2023-03-24 13:02] LABS: Bacteria Urine Trace (None Seen); Hyaline Casts Urine 0-2 /LPF (0-2); RBC Urine 0-2 /HPF (0-2); WBC Urine 0-5 /HPF (0-5)
== END 2023-03-24 10:45 | disposition home or self-care (01) ==
LOC: HO.LAB 10:44
PROVIDERS: PCP Internal Medicine; Visit Provider Internal Medicine
DX: E55.9 Vitamin D deficiency, unspecified (principal); E78.00 Pure hypercholesterolemia, unspecified; I10 Essential (primary) hypertension
CPT/HCPCS: 36415; 80053; 80061; 81001; 82306; 84443; 85025

== ENCOUNTER 2023-04-14 15:05 | Outpatient (AMB) | payer OTHER, SELFPAY ==
[2023-04-14 15:16] VITALS: BP 148/72; PULSE 97; O2SAT 95; BMI 35.5
--- NOTE | 2023-04-14 15:16 | MHC.PC.OV ---
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 Language: Malagasy Allergies hydroxychloroquine [From [facility]] Allergy (Intermediate, Verified 04/14/23 15:41) SHORTNESS, CHEST TIGHTNESS , RASH oseltamivir Allergy (Unknown, Verified 04/14/23 15:41) Unknown Medication List - Last Reconciled 04/14/23 by Marcus Pedersen MD albuterol sulfate 2.5 mg (3 mL) inhalation TID PRN aspirin 81 mg PO DAILY atorvastatin 10 mg PO BEDTIME bupropion HCl 300 mg PO DAILY cetirizine 10 mg PO DAILY PRN 90 days chloroquine phosphate 250 mg PO DAILY cholecalciferol (vitamin D3) 50 mcg PO DAILY 90 days cholecalciferol (vitamin D3) 50 mcg PO DAILY 90 days clonazepam 0.5 mg PO BID PRN 30 days diphenhydramine HCl 2% (Benadryl) 1 appl topical BID 5 days docusate sodium 100 mg PO BID PRN fluocinonide 0.05% topical folic acid 1 mg PO DAILY gabapentin 800 mg PO TID 30 days [GRAB BAR As directed] hydroxyzine HCl 10 mg PO BID PRN miscellaneous medical supply 1 ea miscellaneous .daily as needed 365 days mycophenolate mofetil 500 mg PO BID omeprazole 20 mg PO DAILY oxycodone 10 mg PO Q6H PRN 28 days oxycodone-acetaminophen 10-325 mg 1 tab PO Q6H PRN 28 days prednisone 50 mg PO DAILY 4 days prednisone 20 mg PO DAILY 7 days ProAir HFA 90 mcg/actuation (albuterol sulfate) 2 puffs PO QID PRN 30 days NS [ROLLATOR As directed] salsalate 1,000 mg (2 x 500 mg) PO TID [SHOWER CHAIR As directed] tacrolimus 0.1% topical BID tacrolimus 0.03% 1 appl topical BID tiotropium bromide (Spiriva with HandiHaler) 1 cap inhalation DAILY tizanidine 4 mg PO TID PRN topiramate 100 mg PO BID trazodone 50 mg PO BEDTIME PRN 30 days varenicline 0.5 mg PO DAILY 3 days varenicline 0.5 mg PO BID 3 days varenicline 1 mg PO BID 28 days walker (Ultra-Light Rollator misc) As directed [WHEELCHAIR (standard lightweight) As directed] zolpidem 10 mg PO BEDTIME PRN 30 days Tobacco use date assessed: 04/14/23 Dental Screening Dental Screen Date: 04/14/23 Did you have a dental visit in the last 12 months?: Yes Did you have a dental problem in the last 6 months where you did not have access to dental care?: No Was dental information given to patient?: Patient has dentist HPI 3 month f/u HPI Details Patient comes in today for her follow up visit Relates that she has been experiencing increased fatigue lately Has not been sleeping well at night recently even though she has her Rx to take for sleep - is not sure why States that she feels okay otherwise She denies any headaches or dizziness Denies any chest pains, no SOB No nausea/vomiting, no abdominal pain No change in bowel habits noted States that her chronic joint pains remain adequately controlled on her current Rx but she would like to get a referral again to physical therapy as her lower back has been bothering her a lot lately Adds that she has been experiencing on and off pain over her left foot Recently had right foot x-rays done that showed (+) hallux valgus deformity but does not want to go to the hospital at this time to get x-rays of her other foot Had her follow up labs done a few weeks ago - to discuss her results [facility] Medical History (Updated 04/14/23 @ 15:54 by Marcus Pedersen MD) RSV bronchitis Vitamin D deficiency Fibromyalgia Migraine Dental abscess Constipation Obesity (BMI 30-39.9) Depression Anxiety Insomnia GERD without esophagitis Elevated LFTs Dyslipidemia Discoid lupus Asthma Lumbar degenerative disc disease Surgical History History of colonoscopy History of laparoscopic appendectomy History of sinus surgery History of lumbar surgery S/P total abdominal hysterectomy H/O hand surgery History of foot surgery History of tubal ligation Family History Father Heart disease Hypertension Stroke CVD (cardiovascular disease) Mother Hypertension Asthma Diabetes Sister Diabetes Hypertension Other Mental problem Social History Housing: House Alcohol intake: never Patient Tobacco Use Status: Current everyday Tobacco user Cigarettes Per Day: 10 e-Cigarette/Vaping Use: Never Used Second Hand Smoke Exposure: Yes service: No Current occupational status: disabled Cognitive needs: No Hearing needs: No Vision needs: Yes Questionnaire Thrive Questionnaire Date Thrive assessed: 12/09/22 AUDIT C Alcohol Use Questionnaire (AUDIT-C) 1. How often do you have a drink containing alcohol?: Never 3. How often do you have six or more drinks on one occasion?: Never Total Score: 0 Score Reviewed/Action Taken: Yes MARY-7 AMB Questionnaire MARY-7 Date MARY - 7 assessed: 12/09/22 Source: Developed by Drs. Jesus Queen, Belia Kc, Inocente Gibson and colleagues, with an educational ang from [employer]. Review of Systems Const Denies chills, Reports difficulty sleeping, Reports fatigue (increased lately), Denies fever(s) and Denies headache(s) ENT Denies dysphagia, Denies dizziness, Denies otalgia, Denies headache(s), Denies odynophagia and Denies sore throat Card Denies chest pain, Denies palpitations and Denies dyspnea Resp Denies cough, Denies dyspnea and Denies wheezing GI Denies abdominal pain, Denies constipation, Denies dysphagia, Denies heartburn, Denies diarrhea, Denies nausea, Denies odynophagia and Denies vomiting Denies difficulty voiding, Denies nocturia and Denies dysuria Musc Reports back pain (over the lower back - chronic but increasing lately) and Reports arthralgias (involving multiple joints) Skin/Breast Reports rash (scattered facial rash) Neuro Denies dizziness and Denies headache(s) Endo Reports fatigue (increased lately) and Denies palpitations Aller/Immun Denies wheezing Physical exam (Primary Care) Vital Signs: Last Vital Signs Pulse 97 04/14/23 15:16 BP 148/72 H 04/14/23 15:16 Pulse Ox 95 04/14/23 15:16 Oxygen Delivery Method Room Air 04/14/23 15:16 BMI result Body Mass Index 35.5 Tobacco/Smoking Status: Tobacco use Status Tobacco use date assessed 04/14/23 04/14/23 15:18 Patient Tobacco Use Status Current everyday Tobacco 04/14/23 15:18 e-Cigarette/Vaping Use Never Used 04/14/23 15:18 Thrive Assessment: Date of Thrive Assessment Date Thrive assessed 12/09/22 04/14/23 15:18 Const General: no acute distress and alert HENMT Ears: TM's normal bilaterally and EAC's normal Throat: Yes posterior oropharynx normal and Yes tonsils normal (no TP congestion noted) Neck Neck: Yes no lymphadenopathy and Yes supple Resp Auscultation: clear to auscultation bilaterally, no rales and no wheezes Cardio Rate: regular rate Rhythm: regular rhythm Heart sounds: no murmurs GI Palpation (GI): Soft to palpation and nontender Auscultation: normal bowel sounds Back/Spine/Pelvis Thoracic/Lumbar Spine: lumbar spinal tenderness Skin Other: (+) scattered patchy erythematous discoid and urticarial rash on the face (forehead and cheeks especially) Extrem General: Yes no clubbing, cyanosis or edema Left lower extremity: foot Details: tenderness Location: of the dorsal foot Assessment and Plan Assessment & Plan (1) Dyslipidemia: Code(s): E78.5 - Hyperlipidemia, unspecified Plan: Results of her labs done a few weeks ago reviewed and discussed with patient Reinforced low cholesterol diet Continue Atorvastatin 10 mg QD for now; would not increase her dose due to her recent elevated LFTs Will recheck her labs and fasting lipids in 3 months for follow up (2) Discoid lupus: Code(s): L93.0 - Discoid lupus erythematosus Plan: Follow-up with dermatology as scheduled - goes to Dermatology in [place], [place] Was on Methotrexate in the past but this was also reportedly discontinued due to her elevated BP and LFTs Is now on Chloroquine 250 mg QD Mondays through Fridays; Is off the Rx on Saturdays and Sundays Is also on Mycophenolate 500 mg BID (3) Elevated LFTs: Code(s): R79.89 - Other specified abnormal findings of blood chemistry Plan: Is most likely related to her weight, at least in part Advised that her LFTs are still elevated on her recent labs and they have increased slightly from a few months ago Will send her for abdominal US for further evaluation Will continue to monitor her LFTs closely (4) Asthma: Code(s): J45.909 - Unspecified asthma, uncomplicated Qualifiers: Asthma severity: mild Asthma persistence: persistent Asthma complication type: uncomplicated Qualified Code(s): J45.30 - Mild persistent asthma, uncomplicated Plan: Continue Advair Diskus 100-50 mcg 1 puff twice a day, Spiriva Handihaler 18 mcg inhale contents of 1 capsule once a day and ProAir HFA 2 puffs 4 times a day as needed (5) Migraine: Code(s): G43.909 - Migraine, unspecified, not intractable, without status migrainosus Qualifiers: Migraine type: unspecified Status migrainosus presence: without status migrainosus Intractability: not intractable Qualified Code(s): G43.909 - Migraine, unspecified, not intractable, without status migrainosus Plan: Continue Topiramate 100 mg BID for ALFARO prophylaxis Follow up with neurology as scheduled (6) Fibromyalgia: Code(s): M79.7 - Fibromyalgia Plan: Was taken off Duloxetine due to high BP and elevated LFTs; currently remains on Gabapentin and Tizanidine Follow up with rheumatology as scheduled (7) Lumbar degenerative disc disease: Code(s): M51.36 - Other intervertebral disc degeneration, lumbar region Plan: Reinforced activity and weight lifting restrictions Continue?Gabapentin?800 mg 3 times a day,?Oxycodone-Acetaminophen?10-325 mg every 6 hours as needed,?Tizanidine?4 mg 3 times a day as needed and?Salsalate?500 mg 2 tablets 3 times a day with food Per request, will refer her to physical therapy for further evaluation and management (8) GERD without esophagitis: Code(s): K21.9 - Gastro-esophageal reflux disease without esophagitis Plan: Dietary restrictions reinforced Continue Omeprazole 20 mg QD (9) Vitamin D deficiency: Code(s): E55.9 - Vitamin D deficiency, unspecified Plan: Continue Vitamin D3 2000 units QD (10) Insomnia: Code(s): G47.00 - Insomnia, unspecified Qualifiers: Insomnia type: unspecified Qualified Code(s): G47.00 - Insomnia, unspecified Plan: Sleep hygiene reinforced Continue Zolpidem 10 mg once a day at bedtime as needed and Trazodone 50 mg Q HS PRN (11) Anxiety: Code(s): F41.9 - Anxiety disorder, unspecified Plan: Continue Clonazepam 0.5 mg 1 tablet twice a day as needed and Hydroxyzine 10 mg 1 tablet twice a day as needed (12) Depression: Code(s): F32.9 - Major depressive disorder, single episode, unspecified Qualifiers: Depression Type: major depressive disorder Major depression recurrence: recurrent Active/Remission status: currently active Major depression episode severity: unspecified Qualified Code(s): F33.9 - Major depressive disorder, recurrent, unspecified Plan: Follow-up with Psychiatry as scheduled (13) Obesity (BMI 30-39.9): Code(s): E66.9 - Obesity, unspecified Plan: Reinforced diet/exercise as tolerated/lose weight Plan Follow up in 3 months Orders: Orders US abdomen complete Today R79.89 - Other specified abnormal findings of blood chemistry TSH reflex Free T4 3 Months E78.00 - Pure hypercholesterolemia, unspecified Erythrocyte Sedimentation Rate 3 Months M79.7 - Fibromyalgia PT Evaluation and Treatment Today M51.36 - Other intervertebral disc degeneration, lumbar region, M54.50 - Low back pain, unspecified Complete Blood Count Auto Diff 3 Months I10 - Essential (primary) hypertension Lipid Panel 3 Months E78.00 - Pure hypercholesterolemia, unspecified Comprehensive [place]. Panel Fast 3 Months E78.00 - Pure hypercholesterolemia, unspecified UA CC w/rflx Micro + Cult 3 Months R30.0 - Dysuria Vitamin D 25-OH Total 3 Months E55.9 - Vitamin D deficiency, unspecified Coding Level of Care Code Est Pt Level 4 (65654) Diagnoses Dyslipidemia E78.5 Discoid lupus L93.0 Elevated LFTs R79.89 Mild persistent asthma without complication J45.30 Asthma severity: mild Asthma persistence: persistent Asthma complication type: uncomplicated Migraine without status migrainosus, not intractable, unspecified migraine type G43.909 Migraine type: unspecified Status migrainosus presence: without status migrainosus Intractability: not intractable Fibromyalgia M79.7 Lumbar degenerative disc disease M51.36 GERD without esophagitis K21.9 Vitamin D deficiency E55.9 Insomnia, unspecified type G47.00 Insomnia type: unspecified Anxiety F41.9 Episode of recurrent major depressive disorder, unspecified depression episode severity F33.9 Depression Type: major depressive disorder Major depression recurrence: recurrent Active/Remission status: currently active Major depression episode severity: unspecified Obesity (BMI 30-39.9) E66.9
== END 2023-04-14 16:12 | disposition home or self-care (01) ==
PROVIDERS: PCP Internal Medicine; Visit Provider Internal Medicine
DX: J45.30 Mild persistent asthma, uncomplicated (principal); G43.909 Migraine, unspecified, not intractable, without status migrainosus; K21.9 Gastro-esophageal reflux disease without esophagitis; E55.9 Vitamin D deficiency, unspecified; F33.9 Major depressive disorder, recurrent, unspecified; F41.9 Anxiety disorder, unspecified; E78.5 Hyperlipidemia, unspecified; L93.0 Discoid lupus erythematosus; R79.89 Other specified abnormal findings of blood chemistry; M79.7 Fibromyalgia; M51.36 Other intervertebral disc degeneration, lumbar region
CPT/HCPCS: 99214

== ENCOUNTER 2023-05-09 07:32 | Outpatient (REF) | payer OTHER, SELFPAY | END 2023-05-09 07:33 | disposition home or self-care (01) | LOC: HO.US 07:32 | PROVIDERS: PCP Internal Medicine; Visit Provider Internal Medicine | DX: R79.89 Other specified abnormal findings of blood chemistry (principal) | CPT/HCPCS: 76700 ==

== ENCOUNTER 2023-05-20 09:48 | Emergency (ER) | payer OTHER, SELFPAY ==
[2023-05-20 10:06] VITALS: BP 152/71; PULSE 80; RESP 18; TEMP 36.2; O2SAT 96; BMI 35.6
[2023-05-20 10:26] LABS: MANUAL DIFF FLAG NO
[2023-05-20 10:35] LABS: Basophils Percent Auto 0.4 % (0-2); Eosinophils Absolute Auto 0.1 X10*3/uL (0.0-0.4); Eosinophils Percent Auto 1.2 % (0-4); Hematocrit 45.7 % (37.0-47.0); Hemoglobin 15.3 g/dl (12.0-16.0); Imm Gran Abs Auto 0.04 X10*3/uL (0.00-0.03); Imm Gran Pct Auto 0.4 % (0.0-0.4); Lymphocytes Absolute Auto 2.9 X10*3/uL (1.2-4.9); Lymphocytes Percent Auto 26.9 % (20-40); Mean Corpuscular HGB Conc 33.5 g/dl (31.0-35.0); Mean Corpuscular Hemoglobin 30.1 pg (27.0-33.0); Mean Corpuscular Volume 89.8 fL (80.0-98.0); Mean Platelet Volume 10.2 fL (9.4-12.3); Monocytes Absolute Auto 0.6 X10*3/uL (0.1-1.2); Monocytes Percent Auto 5.5 % (2-11); Neutrophils Absolute Auto 7.1 x10*3/uL (2.0-8.3); Neutrophils Percent Auto 65.6 % (45-73); Platelet Count 281 X10*3/uL (160-400); Red Blood Count 5.09 X10*6/uL (4.20-5.50); Red Cell Distribution Width 13.4 % (11.0-16.0); White Blood Count 10.8 X10*3/uL (4.8-10.8)
[2023-05-20 10:44] LABS: Alanine Aminotransferase 58 U/L (0-31); Albumin Level 4.2 g/dL (3.5-5.0); Alkaline Phosphatase 153 U/L (39-117); Anion Gap 13 (12-20); Aspartate Amino Transferase 36 U/L (5-31); Bilirubin Direct 0.2 mg/dL (0.0-0.5); Bilirubin Total 0.4 mg/dL (0.0-1.0); Blood Urea Nitrogen 18 mg/dL (9-16); Calcium 10.2 mg/dL (8.4-10.2); Carbon Dioxide 23 mmol/L (22-29); Chloride 109 mmol/L (96-108); Creatinine Clr Calc Pharmacy 83.4; Estimated Glomerular Filt Rate > 60; Glucose Random 131 mg/dL (60-115); Lipase 19 U/L (8-78); Sodium 141 mmol/L (135-145); Total Protein 8.6 g/dL (6.5-8.0)
[2023-05-20 10:46] LABS: COVID-19 Test Negative (Negative); IDNOW Serial# BCCEAD1C
== END 2023-05-20 16:34 | disposition left against medical advice (07) ==
PROVIDERS: Emergency Provider Emergency Medicine; PCP Internal Medicine
DX: R11.10 Vomiting, unspecified (principal); Z11.52 Encounter for screening for COVID-19
CPT/HCPCS: 80048; 80076; 83690; 85025; 87635; 99281; 99283

== ENCOUNTER 2023-07-30 11:53 | Outpatient (AMB) | payer OTHER, SELFPAY ==
--- NOTE | 2023-07-30 12:34 | MHC.PC.OV ---
Vital Signs 07/30/23 12:35 Height 5 ft 2 in Weight 196 lb 4 oz BMI 35.9 BP 126/72 Blood Pressure Location Lt brachial Position Sitting Pulse 79 Pulse Source Pulse Oximeter Pulse Oximetry (%) 97 Oxygen Delivery Method Room Air Intake Visit Reasons: virtigo/vomitting f/u Intake Note: Patient is here to follow up on Vertigo and vomiting. 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 Accompanied by: Grand daughter Allergies hydroxychloroquine [From [facility]] Allergy (Intermediate, Verified 07/30/23 13:02) SHORTNESS, CHEST TIGHTNESS , RASH oseltamivir Allergy (Unknown, Verified 07/30/23 13:02) Unknown Medication List - Last Reconciled 07/30/23 by Marcus Pedersen MD albuterol sulfate 90 mcg/actuation (ProAir HFA) 2 puffs PO QID PRN 30 days albuterol sulfate 2.5 mg (3 mL) inhalation TID PRN aspirin 81 mg PO DAILY bupropion HCl 300 mg PO DAILY cetirizine 10 mg PO DAILY PRN 90 days chloroquine phosphate 250 mg PO DAILY cholecalciferol (vitamin D3) 50 mcg PO DAILY 90 days clonazepam 0.5 mg PO BID PRN 30 days docusate sodium 100 mg PO BID PRN folic acid 1 mg PO DAILY gabapentin 800 mg PO TID 30 days [GRAB BAR As directed] hydroxyzine HCl 10 mg PO BID PRN miscellaneous medical supply 1 ea miscellaneous .daily as needed 365 days mycophenolate mofetil 500 mg PO BID omeprazole 20 mg PO DAILY oxycodone 10 mg PO Q6H PRN 28 days [ROLLATOR As directed] [SHOWER CHAIR As directed] tacrolimus 0.03% 1 appl topical BID tiotropium bromide (Spiriva with HandiHaler) 1 cap inhalation DAILY tizanidine 4 mg PO TID PRN topiramate 100 mg PO BID trazodone 50 mg PO BEDTIME PRN 30 days [WHEELCHAIR (standard lightweight) As directed] zolpidem 10 mg PO BEDTIME PRN 30 days Tobacco use date assessed: 07/30/23 Dental Screening Dental Screen Date: 07/30/23 Did you have a dental visit in the last 12 months?: Yes Did you have a dental problem in the last 6 months where you did not have access to dental care?: No Was dental information given to patient?: Patient has dentist HPI virtigo/vomitting f/u HPI Details Patient comes in today for her follow up visit States that she feels okay and notes that she has been sleeping better at night lately She denies any headaches or dizziness for the past couple of months Denies any chest pains, no increased SOB No nausea/vomiting, no abdominal pain No change in bowel habits noted States that her chronic joint pains remain adequately controlled on her current Rx Was not able to get her follow up labs done prior to her visit today [facility] Medical History RSV bronchitis Vitamin D deficiency Fibromyalgia Migraine Dental abscess Constipation Obesity (BMI 30-39.9) Depression Anxiety Insomnia GERD without esophagitis Elevated LFTs Dyslipidemia Discoid lupus Asthma Lumbar degenerative disc disease Surgical History History of colonoscopy History of laparoscopic appendectomy History of sinus surgery History of lumbar surgery S/P total abdominal hysterectomy H/O hand surgery History of foot surgery History of tubal ligation Family History Father Heart disease Hypertension Stroke CVD (cardiovascular disease) Mother Hypertension Asthma Diabetes Sister Diabetes Hypertension Other Mental problem Social History Housing: House Alcohol intake: never Patient Tobacco Use Status: Current everyday Tobacco user Tobacco use type: Cigarette Cigarettes Per Day: 4 e-Cigarette/Vaping Use: Never Used Second Hand Smoke Exposure: Yes service: No Current occupational status: disabled Cognitive needs: Yes (walker) Hearing needs: No Vision needs: Yes Questionnaire Thrive Questionnaire Date Thrive assessed: 12/09/22 MARY-7 AMB Questionnaire MARY-7 Date MARY - 7 assessed: 12/09/22 Source: Developed by Drs. Jesus Queen, Belia Kc, Inocente Gibson and colleagues, with an educational ang from [employer]. Review of Systems Const Denies chills, Denies difficulty sleeping, Reports fatigue (at times), Denies fever(s) and Denies headache(s) ENT Denies dysphagia, Denies dizziness, Denies otalgia, Denies headache(s), Denies neck pain, Denies odynophagia and Denies sore throat Card Denies chest pain, Denies palpitations and Denies dyspnea Resp Denies cough, Denies dyspnea and Denies wheezing GI Denies abdominal pain, Denies constipation, Denies dysphagia, Denies heartburn, Denies diarrhea, Denies nausea, Denies odynophagia and Denies vomiting Denies difficulty voiding, Denies nocturia and Denies dysuria Musc Reports back pain (over the lower back - chronic but increasing lately), Reports arthralgias (involving multiple joints) and Denies neck pain Skin/Breast Reports rash (scattered facial rash) Neuro Denies dizziness and Denies headache(s) Endo Reports fatigue (at times) and Denies palpitations Aller/Immun Denies wheezing Physical exam (Primary Care) Vital Signs: Last Vital Signs Pulse 79 07/30/23 12:35 BP 126/72 07/30/23 12:35 Pulse Ox 97 07/30/23 12:35 Oxygen Delivery Method Room Air 07/30/23 12:35 BMI result Body Mass Index 35.9 Tobacco/Smoking Status: Tobacco use Status Tobacco use date assessed 07/30/23 07/30/23 12:45 Patient Tobacco Use Status Current everyday Tobacco 07/30/23 12:45 Tobacco use type Cigarette 07/30/23 12:45 e-Cigarette/Vaping Use Never Used 07/30/23 12:45 Thrive Assessment: Date of Thrive Assessment Date Thrive assessed 12/09/22 07/30/23 12:45 Const General: no acute distress and alert HENMT Ears: TM's normal bilaterally and EAC's normal Throat: Yes posterior oropharynx normal and Yes tonsils normal (no TP congestion noted) Neck Neck: Yes no lymphadenopathy and Yes supple Resp Auscultation: clear to auscultation bilaterally, no rales and no wheezes Cardio Rate: regular rate Rhythm: regular rhythm Heart sounds: no murmurs GI Palpation (GI): Soft to palpation and nontender Auscultation: normal bowel sounds Back/Spine/Pelvis Thoracic/Lumbar Spine: lumbar spinal tenderness Skin Other: (+) scattered patchy erythematous discoid and urticarial rash on the face (forehead and cheeks especially) Extrem General: Yes no clubbing, cyanosis or edema Left lower extremity: foot Details: tenderness Location: of the dorsal foot Assessment and Plan Assessment & Plan (1) Dyslipidemia: Code(s): E78.5 - Hyperlipidemia, unspecified Plan: Patient was not able to get her follow up labs done prior to her visit today; her cholesterol levels were well-controlled when they were last checked in March 2023 Reinforced low cholesterol diet Continue Atorvastatin 10 mg QD for now; we did not increase her dose last time due to her recently elevated LFTs Will recheck her labs and fasting lipids in 3 months for follow up (2) Discoid lupus: Code(s): L93.0 - Discoid lupus erythematosus Plan: Was on Methotrexate in the past but this was reportedly discontinued due to her elevated BP and LFTs Is now on Chloroquine 250 mg QD Mondays through Fridays; Is off the Rx on Saturdays and Sundays Is also on Mycophenolate 500 mg BID Follow-up with dermatology as scheduled - goes to Dermatology in [place], [place] (3) Elevated LFTs: Code(s): R79.89 - Other specified abnormal findings of blood chemistry Plan: Is most likely related to her weight, at least in part Her LFTs were elevated on her previous labs but they have decreased slightly when rechecked a couple of months ago Abdominal US done a couple of months ago revealed (+) diffuse increase in echogenicity of the liver characteristic of primary hepatocellular disease, possibly due to hepatic steatosis and severely limits visualization. CT scan should offer better visualization if indicated Will continue to monitor her LFTs closely for now and if these get worse, will then consider getting abdominal CT (4) Asthma: Code(s): J45.909 - Unspecified asthma, uncomplicated Qualifiers: Asthma severity: mild Asthma persistence: persistent Asthma complication type: uncomplicated Qualified Code(s): J45.30 - Mild persistent asthma, uncomplicated Plan: Continue Advair Diskus 100-50 mcg 1 puff twice a day, Spiriva Handihaler 18 mcg inhale contents of 1 capsule once a day and ProAir HFA 2 puffs 4 times a day as needed (5) Migraine: Code(s): G43.909 - Migraine, unspecified, not intractable, without status migrainosus Qualifiers: Migraine type: unspecified Status migrainosus presence: without status migrainosus Intractability: not intractable Qualified Code(s): G43.909 - Migraine, unspecified, not intractable, without status migrainosus Plan: Continue Topiramate 100 mg BID for ALFARO prophylaxis Follow up with neurology as scheduled (6) Fibromyalgia: Code(s): M79.7 - Fibromyalgia Plan: Was taken off Duloxetine due to high BP and elevated LFTs; currently remains on Gabapentin and Tizanidine Follow up with rheumatology as scheduled (7) Lumbar degenerative disc disease: Code(s): M51.36 - Other intervertebral disc degeneration, lumbar region Plan: Reinforced activity and weight lifting restrictions Continue?Gabapentin?800 mg 3 times a day,?Oxycodone-Acetaminophen?10-325 mg every 6 hours as needed,?Tizanidine?4 mg 3 times a day as needed and?Salsalate?500 mg 2 tablets 3 times a day with food She has been referred to physical therapy as needed when her low back pain flares up (8) GERD without esophagitis: Code(s): K21.9 - Gastro-esophageal reflux disease without esophagitis Plan: Dietary restrictions reinforced Continue Omeprazole 20 mg QD (9) Vitamin D deficiency: Code(s): E55.9 - Vitamin D deficiency, unspecified Plan: Continue Vitamin D3 2000 units QD (10) Insomnia: Code(s): G47.00 - Insomnia, unspecified Qualifiers: Insomnia type: unspecified Qualified Code(s): G47.00 - Insomnia, unspecified Plan: Sleep hygiene reinforced Continue Zolpidem 10 mg once a day at bedtime as needed and Trazodone 50 mg Q HS PRN (11) Anxiety: Code(s): F41.9 - Anxiety disorder, unspecified Plan: Continue Clonazepam 0.5 mg 1 tablet twice a day as needed and Hydroxyzine 10 mg 1 tablet twice a day as needed (12) Depression: Code(s): F32.9 - Major depressive disorder, single episode, unspecified Qualifiers: Depression Type: major depressive disorder Major depression recurrence: recurrent Active/Remission status: currently active Major depression episode severity: unspecified Qualified Code(s): F33.9 - Major depressive disorder, recurrent, unspecified Plan: Follow-up with Psychiatry as scheduled (13) Obesity (BMI 30-39.9): Code(s): E66.9 - Obesity, unspecified Plan: Reinforced diet; exercise and weight are unrealistic given patient's multiple comorbidities Plan Follow up in 3 months Orders: Orders Lipid Panel 3 Months E78.00 - Pure hypercholesterolemia, unspecified UA CC w/rflx Micro + Cult 3 Months R30.0 - Dysuria Hepatitis B,C Profile 3 Months R79.89 - Other specified abnormal findings of blood chemistry Liver Fibrosis Pnl 3 Months R79.89 - Other specified abnormal findings of blood chemistry Comprehensive [place]. Panel Fast 3 Months E78.00 - Pure hypercholesterolemia, unspecified Complete Blood Count Auto Diff 3 Months I10 - Essential (primary) hypertension TSH reflex Free T4 3 Months E78.00 - Pure hypercholesterolemia, unspecified Vitamin D 25-OH Total 3 Months E55.9 - Vitamin D deficiency, unspecified Vitamin B12 and Folate 3 Months E53.8 - Deficiency of other specified B group vitamins Gamma Glutamyl Transpeptidase 3 Months R79.89 - Other specified abnormal findings of blood chemistry Coding Level of Care Code Est Pt Level 4 (04534) Diagnoses Dyslipidemia E78.5 Discoid lupus L93.0 Elevated LFTs R79.89 Mild persistent asthma without complication J45.30 Asthma severity: mild Asthma persistence: persistent Asthma complication type: uncomplicated Migraine without status migrainosus, not intractable, unspecified migraine type G43.909 Migraine type: unspecified Status migrainosus presence: without status migrainosus Intractability: not intractable Fibromyalgia M79.7 Lumbar degenerative disc disease M51.36 GERD without esophagitis K21.9 Vitamin D deficiency E55.9 Insomnia, unspecified type G47.00 Insomnia type: unspecified Anxiety F41.9 Episode of recurrent major depressive disorder, unspecified depression episode severity F33.9 Depression Type: major depressive disorder Major depression recurrence: recurrent Active/Remission status: currently active Major depression episode severity: unspecified Obesity (BMI 30-39.9) E66.9
[2023-07-30 12:35] VITALS: BP 126/72; PULSE 79; O2SAT 97; BMI 35.9
== END 2023-07-30 13:12 | disposition home or self-care (01) ==
PROVIDERS: PCP Internal Medicine; Visit Provider Internal Medicine
DX: E78.5 Hyperlipidemia, unspecified (principal); L93.0 Discoid lupus erythematosus; R79.89 Other specified abnormal findings of blood chemistry; F33.9 Major depressive disorder, recurrent, unspecified; J45.30 Mild persistent asthma, uncomplicated; G43.909 Migraine, unspecified, not intractable, without status migrainosus; M79.7 Fibromyalgia; M51.36 Other intervertebral disc degeneration, lumbar region; K21.9 Gastro-esophageal reflux disease without esophagitis; Z68.35 Body mass index [BMI] 35.0-35.9, adult; G47.00 Insomnia, unspecified; F41.9 Anxiety disorder, unspecified
CPT/HCPCS: 99214

== ENCOUNTER 2023-11-25 08:09 | Outpatient (REF) | payer OTHER, SELFPAY ==
[2023-11-25 08:35] LABS: MANUAL DIFF FLAG NO
[2023-11-25 09:21] LABS: Basophils Percent Auto 0.5 % (0-2); Eosinophils Absolute Auto 0.1 X10*3/uL (0.0-0.4); Eosinophils Percent Auto 1.6 % (0-4); Hematocrit 45.4 % (37.0-47.0); Imm Gran Abs Auto 0.02 X10*3/uL (0.00-0.03); Imm Gran Pct Auto 0.3 % (0.0-0.4); Lymphocytes Absolute Auto 2.5 X10*3/uL (1.2-4.9); Lymphocytes Percent Auto 40.7 % (20-40); Mean Corpuscular Hemoglobin 29.6 pg (27.0-33.0); Mean Corpuscular Volume 89.5 fL (80.0-98.0); Mean Platelet Volume 10.8 fL (9.4-12.3); Monocytes Absolute Auto 0.5 X10*3/uL (0.1-1.2); Monocytes Percent Auto 7.3 % (2-11); Neutrophils Absolute Auto 3.1 x10*3/uL (2.0-8.3); Neutrophils Percent Auto 49.6 % (45-73); Platelet Count 257 X10*3/uL (160-400); Red Blood Count 5.07 X10*6/uL (4.20-5.50); Red Cell Distribution Width 13.4 % (11.0-16.0); White Blood Count 6.2 X10*3/uL (4.8-10.8)
[2023-11-25 09:26] LABS: Appearance Urine Clear; Color Urine Yellow; Glucose Urine UA Negative (Negative); Leukocyte Esterase Urine Negative (Negative); Nitrite Urine Negative (Negative); PH 5.5 (5.0-9.0); Urine Blood Negative (Negative); Urine Ketones Negative (Negative); Urine Protein Negative (Neg-Trace)
[2023-11-25 10:08] LABS: Erythrocyte Sedimentation Rate 44 MM/HR (0-20)
[2023-11-25 10:14] LABS: Alanine Aminotransferase 33 U/L (0-31); Albumin Level 4.1 g/dL (3.5-5.0); Alkaline Phosphatase 146 U/L (39-117); Aspartate Amino Transferase 26 U/L (5-31); Bilirubin Direct 0.1 mg/dL (0.0-0.5); Bilirubin Total 0.3 mg/dL (0.0-1.0); Total Protein 8.4 g/dL (6.5-8.0)
[2023-11-25 10:25] LABS: Alanine Aminotransferase 31 U/L (0-31); Albumin Level 4.1 g/dL (3.5-5.0); Alkaline Phosphatase 146 U/L (39-117); Anion Gap 12 (12-20); Aspartate Amino Transferase 26 U/L (5-31); Bilirubin Total 0.3 mg/dL (0.0-1.0); Blood Urea Nitrogen 9 mg/dL (9-16); Carbon Dioxide 26 mmol/L (22-29); Chloride 108 mmol/L (96-108); Cholesterol 196 mg/dL (<200); Estimated Glomerular Filt Rate > 60; Gamma Glutamyl Transpeptidase 109 U/L (7-33); Glucose Fasting 108 mg/dL (60-99); HDL Cholesterol 45 mg/dL (>40); LDL Cholesterol Calculated 137 mg/dL (<100); Potassium 3.8 mmol/L (3.3-5.1); Sodium 142 mmol/L (135-145); Total Protein 8.4 g/dL (6.5-8.0); Triglycerides 71 mg/dL (<150)
[2023-11-25 10:28] LABS: HBS Num1 0.42 mIU/mL (0-7.99); HBsAGNum1 0.34 S/CO (0.00-0.99); Hepatitis B Core Antibody Nonreactive (Nonreactive); Hepatitis B Surface Antigen Negative (Negative); ~HepC Num1 0.09 S/CO (0.00-0.79); ~Hepatitis B Surface Antibody NONREACTIVE (Nonreactive); ~Hepatitis C Antibody Nonreactive (Nonreactive)
[2023-11-25 10:30] LABS: TSH reflex Free T4 0.69 uIU/mL (0.32-4.0); Vitamin D 25-OH Total 23.1 ng/mL (>30)
[2023-11-25 12:15] LABS: Folate 8.7 ng/mL (> or = 4.0); Vitamin B12 396 pg/mL (200-900)
[2023-12-05 17:42] LABS: FIB-ALT 28 U/L (6-29); FIB-Alpha-2-Macroglobulin 197 mg/dL (106-279); FIB-Apolipoprotein A1 161 mg/dL (101-198); FIB-GGT 91 U/L (3-65); FIB-Haptoglobin 224 mg/dL (43-212); FIB-Total Bilirubin 0.3 mg/dL (0.2-1.2); Liver Fibrosis Score 0.16; Liver Fibrosis Stage F0; Nec Inflam Act Grade A0; Nec Inflam Act Score 0.11
== END 2023-11-25 08:10 | disposition home or self-care (01) ==
LOC: HO.LAB 08:09
PROVIDERS: PCP Internal Medicine; Visit Provider Dermatology
DX: E55.9 Vitamin D deficiency, unspecified (principal); E53.8 Deficiency of other specified B group vitamins; R30.0 Dysuria; R79.89 Other specified abnormal findings of blood chemistry; E78.00 Pure hypercholesterolemia, unspecified; M79.7 Fibromyalgia; I10 Essential (primary) hypertension; L93.0 Discoid lupus erythematosus; R74.8 Abnormal levels of other serum enzymes; Z79.899 Other long term (current) drug therapy
CPT/HCPCS: 36415; 80053; 80061; 80076; 81003; 81596; 82306; 82607; 82746; 82977; 84443; 85025; 85652; 86704; 86706; 86803; 87340

== ENCOUNTER 2024-01-08 11:11 | Outpatient (REF) | payer OTHER, SELFPAY | END 2024-01-08 11:12 | disposition home or self-care (01) | LOC: HO.MAMMO 11:11 | PROVIDERS: PCP Internal Medicine; Visit Provider Internal Medicine | DX: Z12.31 Encounter for screening mammogram for malignant neoplasm of breast (principal) | CPT/HCPCS: 77063; 77067 ==

== ENCOUNTER → 2024-01-08 11:45 | Outpatient (BNV) | payer OTHER, SELFPAY | PROVIDERS: PCP Internal Medicine; Visit Provider Radiology Diagnostic Radiology | DX: Z12.31 Encounter for screening mammogram for malignant neoplasm of breast (principal) | CPT/HCPCS: 77063; 77067 ==

== ENCOUNTER 2024-02-10 15:00 | Outpatient (AMB) | payer OTHER, SELFPAY ==
--- NOTE | 2024-02-10 15:00 | A.OFFPC_ITS ---
Vital Signs 02/10/24 15:01 Height 5 ft 2 in Weight 190 lb BMI 34.7 BP 140/68 H Blood Pressure Location Lt brachial Position Sitting Pulse 90 Pulse Source Pulse Oximeter Pulse Oximetry (%) 95 Oxygen Delivery Method Room Air Intake Visit Reasons: 3M. F/U-Discoid Lupus,/Dyslipidemia/Asthma/Lumbar Intake Note: Patient is here to follow up Customer Service Representative Required: No Allergies hydroxychloroquine [From [facility]] Allergy (Intermediate, Verified 02/10/24 15:37) SHORTNESS, CHEST TIGHTNESS , RASH oseltamivir Allergy (Unknown, Verified 02/10/24 15:37) Unknown Medication List - Last Reconciled 02/11/24 by Marcus Pedersen MD albuterol sulfate 2.5 mg (3 mL) inhalation TID PRN albuterol sulfate 90 mcg/actuation (ProAir HFA) 2 puffs PO QID PRN 30 days anifrolumab-fnia 300 mg IV Q4W aspirin 81 mg PO DAILY atorvastatin 10 mg PO BEDTIME 90 days bupropion HCl XL 300 mg PO DAILY cetirizine 10 mg PO DAILY PRN 90 days chloroquine phosphate 250 mg PO DAILY cholecalciferol (vitamin D3) 50 mcg PO DAILY 90 days clonazepam 0.5 mg PO BID PRN 30 days docusate sodium 100 mg PO BID PRN folic acid 1 mg PO DAILY 90 days gabapentin 800 mg PO TID 30 days [GRAB BAR As directed] hydroxyzine HCl 10 mg PO BID PRN miscellaneous medical supply 1 ea miscellaneous .daily as needed 365 days mycophenolate mofetil 500 mg PO BID omeprazole 20 mg PO DAILY oxycodone 10 mg PO Q6H PRN 28 days [ROLLATOR As directed] [SHOWER CHAIR As directed] tacrolimus 0.03% 1 appl topical BID tiotropium bromide (Spiriva with HandiHaler) 1 cap inhalation DAILY tizanidine 4 mg PO TID PRN topiramate 100 mg PO BID trazodone 50 mg PO BEDTIME PRN 30 days varenicline 1 mg PO BID 28 days [WHEELCHAIR (standard lightweight) As directed] zolpidem 10 mg PO BEDTIME PRN 30 days Tobacco use date assessed: 02/10/24 Dental Screening Dental Screen Date: 02/10/24 HPI 3M. F/U-Discoid Lupus,/Dyslipidemia/Asthma/Lumbar HPI Details Patient comes in today for her follow up visit States that she currently feels okay She is presently receiving IV infusion of Saphnelo at [facility] every 4 weeks for her discoid lupus - Rx is being prescribed and managed by her car scrubber at [facility] (Dr. Luz Qureshi) States that she was advised by her car scrubber to stop taking her At orvastatin a few months ago - she is not sure why but she assumed that this was because she was on Saphnelo IV She denies any headaches or dizziness Denies any chest pains, no shortness of breath No nausea/ vomiting, no abdominal pain No change in bowel habits noted States that her chronic low back pain and joint pains remain adequately controlled on her current medication She had her follow-up labs done back in November 2023 - was supposed to have a follow-up appointment shortly thereafter but she apparently missed her scheduled appointment then and was rescheduled to today [facility] Medical History RSV bronchitis Vitamin D deficiency Fibromyalgia Migraine Dental abscess Constipation Obesity (BMI 30-39.9) Depression Anxiety Insomnia GERD without esophagitis Elevated LFTs Dyslipidemia Discoid lupus Asthma Lumbar degenerative disc disease Surgical History History of colonoscopy History of laparoscopic appendectomy History of sinus surgery History of lumbar surgery S/P total abdominal hysterectomy H/O hand surgery History of foot surgery History of tubal ligation Family History Father Heart disease Hypertension Stroke CVD (cardiovascular disease) Mother Hypertension Asthma Diabetes Sister Diabetes Hypertension Other Mental problem Social History Housing: House Alcohol intake: never Patient Tobacco Use Status: Former Tobacco user Tobacco use type: Cigarette Cigarettes Per Day: 4 e-Cigarette/Vaping Use: Never Used Second Hand Smoke Exposure: Yes service: No Current occupational status: disabled Cognitive needs: Yes (walker) Hearing needs: No Vision needs: Yes Questionnaire PHQ-9 Over the last 2 weeks, how often have you been bothered by any of the following problems? 1. Little interest or pleasure in doing things: not at all 2. Feeling down, depressed, or hopeless: more than half the days 3. Trouble falling or staying asleep, or sleeping too much: several days 4. Feeling tired or having little energy: several days 5. Poor appetite or overeating: not at all 6. Feeling bad about yourself - or that you are a failure or have let yourself or your family down: not at all 7. Trouble concentrating on things, such as reading the newspaper or watching television: not at all 8. Moving or speaking so slowly that other people could have noticed. Or the opposite - being so fidgety or restless that you have been moving around a lot more than usual: not at all 9. Thoughts that you would be better off or of hurting yourself in some way: not at all Total score: 4 Depression Screening Interpretation: Positive Depression Screening Follow-up: Existing condition and In treatment Depression Screening Done: Yes [id number] - PHQ-9 Billing: Yes Source: Developed by Drs. Jesus Queen, Belia Kc, Inocente Gibson and colleagues, with an educational ang from [employer]. Thrive Questionnaire Date Thrive assessed: 02/10/24 I am a: Patient What is your living situation today?: I have a steady place to live Within the past 12 months, did the food you bought not last and you didn't have the money to get more?: Never true Within the past 12 months, did you worry whether your food would run out before you got money to buy more?: Never true Do you have trouble paying for medicines?: No Do you have trouble getting transportation to medical appointments?: No Do you have trouble paying your heating and electricity bill?: No Do you have trouble taking care of your child, family member or friend?: No Do you have trouble with day-to-day activities such as bathing, preparing meals, shopping, managing finances, etc.?: No Are you currently unemployed and looking for a job?: No Are you interested in more education?: No Currently or been in a relationship where the following occur: No concerns reported THRIVE Score: 0 AUDIT C Alcohol Use Questionnaire (AUDIT-C) 1. How often do you have a drink containing alcohol?: Never 3. How often do you have six or more drinks on one occasion?: Never Total Score: 0 Score Reviewed/Action Taken: Yes MARY-7 AMB Questionnaire MARY-7 Date MARY - 7 assessed: 12/09/22 Source: Developed by Drs. Jesus Queen, Belia Kc, Inocente Gibson and colleagues, with an educational ang from [employer]. Review of Systems Const Denies chills, Denies difficulty sleeping, Reports fatigue (at times), Denies fever(s) and Denies headache(s) ENT Denies dysphagia, Denies dizziness, Denies otalgia, Denies headache(s), Denies neck pain, Denies odynophagia and Denies sore throat Card Denies chest pain, Denies palpitations and Denies dyspnea Resp Denies cough, Denies dyspnea and Denies wheezing GI Denies abdominal pain, Denies constipation, Denies dysphagia, Denies heartburn, Denies diarrhea, Denies nausea, Denies odynophagia and Denies vomiting Denies difficulty voiding, Denies nocturia and Denies dysuria Musc Reports back pain (over the lower back - chronic), Reports arthralgias (involving multiple joints) and Denies neck pain Skin/Breast Reports rash (scattered facial rash) Neuro Denies dizziness and Denies headache(s) Endo Reports fatigue (at times) and Denies palpitations Aller/Immun Denies wheezing Physical exam (Primary Care) Vital Signs: Last Vital Signs Pulse 90 02/10/24 15:01 BP 140/68 H 02/10/24 15:01 Pulse Ox 95 02/10/24 15:01 Oxygen Delivery Method Room Air 02/10/24 15:01 BMI result Body Mass Index 34.7 Tobacco/Smoking Status: Tobacco use Status Tobacco use date assessed 02/10/24 02/10/24 15:03 Patient Tobacco Use Status Former Tobacco user 02/10/24 15:13 Tobacco use type Cigarette 02/10/24 15:00 e-Cigarette/Vaping Use Never Used 02/10/24 15:00 Depression Screening Interpretation: Positive Depression Screening Follow-up: Existing condition and In treatment Thrive Assessment: Date of Thrive Assessment Date Thrive assessed 12/09/22 02/10/24 15:00 Currently or been in a relationship where the following occur: No concerns reported Const General: no acute distress and alert HENMT Ears: TM's normal bilaterally and EAC's normal Throat: Yes posterior oropharynx normal and Yes tonsils normal (no TP congestion noted) Neck Neck: Yes no lymphadenopathy and Yes supple Thyroid: Thyroid normal Resp Auscultation: clear to auscultation bilaterally, no rales and no wheezes Cardio Rate: regular rate Rhythm: regular rhythm Heart sounds: no murmurs GI Palpation (GI): Soft to palpation and nontender Auscultation: normal bowel sounds Back/Spine/Pelvis Thoracic/Lumbar Spine: lumbar spinal tenderness Skin Other: (+) scattered patchy erythematous discoid and urticarial rash on the face (forehead and cheeks especially) Extrem General: Yes no clubbing, cyanosis or edema Left lower extremity: foot Details: tenderness Location: of the dorsal foot Results Reviewed Results Reviewed: Laboratory Tests 11/25/23 11/25/23 08:28 08:34 WBC 6.2 Hgb 15.0 Hct 45.4 Plt Count 257 ESR 44 H Sodium 142 Potassium 3.8 Creatinine 0.71 Estimated GFR > 60 Fasting Glucose 108 H Calcium 10.0 GGT 109 H AST 26 ALT 31 Liver GGT 91 H Liver Haptoglobin 224 H Liver Fibrosis Score 0.16 Liver Fibrosis Stage F0 Triglycerides 71 Cholesterol 196 LDL Cholesterol, Calc 137 H HDL Cholesterol 45 Vitamin B12 396 25-OH Vitamin D Total 23.1 L TSH 0.69 Ur Specific [place] 1.020 Urine Protein Negative Urine Glucose (UA) Negative Urine Blood Negative Urine Nitrite Negative Ur Leukocyte Esterase Negative Assessment and Plan Assessment & Plan (1) Dyslipidemia: Code(s): E78.5 - Hyperlipidemia, unspecified Plan: Results of her labs done back in November 2023 reviewed and discussed with patient - she is cautioned that her cholesterol levels then have increased from previous Reinforced low cholesterol diet She was on Atorvastatin 10 mg QD but now states that she was instructed to stop taking this by her car scrubber in [place] a few months ago - she is not sure why but she assumed that it was because she was on Saphnelo IV infusion Have discussed with patient that this may actually be because her LFTs were elevated if she did have labs done at [place] a few months ago Will try to obtain copies of her records related to her recent visits in [place] for more information Advised patient to stay off her medication for now and we will check back with her once we have more information regarding this Will recheck her labs and fasting lipids in 3 months for follow up (2) Discoid lupus: Code(s): L93.0 - Discoid lupus erythematosus Plan: Was on Methotrexate in the past but this was reportedly discontinued due to her elevated BP and LFTs She was on Chloroquine 250 mg QD Mondays through Fridays and off the Rx on Saturdays and Sundays; she was also on Mycophenolate 500 mg BID but is now on IV infusion of Saphnelo every 4 weeks - gets her infusion at [facility] [place] through her car scrubber there, Dr. Sheridan Qureshi She still goes to Dermatology in [place], [place] for her regular follow up as well (3) Elevated LFTs: Code(s): R79.89 - Other specified abnormal findings of blood chemistry Plan: Is most likely related to her weight, at least in part Her LFTs were elevated on her previous labs but they were back to normal on her labs done in November 2023 Abdominal US done a couple of months ago revealed (+) diffuse increase in echogenicity of the liver characteristic of primary hepatocellular disease, possibly due to hepatic steatosis and severely limits visualization. CT scan should offer better visualization if indicated Will continue to monitor her LFTs closely for now and if these get worse, will then consider getting abdominal CT (4) Asthma: Code(s): J45.909 - Unspecified asthma, uncomplicated Qualifiers: Asthma complication type: uncomplicated Asthma persistence: persistent Asthma severity: mild Qualified Code(s): J45.30 - Mild persistent asthma, unc omplicated Plan: Continue Advair Diskus 100-50 mcg 1 puff twice a day, Spiriva Handihaler 18 mcg inhale contents of 1 capsule once a day and ProAir HFA 2 puffs 4 times a day as needed (5) Migraine: Code(s): G43.909 - Migraine, unspecified, not intractable, without status migrainosus Qualifiers: Intractability: not intractable Migraine type: unspecified Status whitney rainosus presence: without status migrainosus Qualified Code(s): G43.909 - Migraine, unspecified, not intractable, without status migrainosus Plan: Continue Topiramate 100 mg BID for ALFARO prophylaxis Follow up with neurology as scheduled (6) Fibromyalgia: Code(s): M79.7 - Fibromyalgia Plan: She was previously taken off Duloxetine due to high BP and elevated LFTs; currently remains on Gabapentin and Tizanidine Follow up with rheumatology as scheduled (7) Lumbar degenerative disc disease: Code(s): M51.36 - Other intervertebral disc degeneration, lumbar region Plan: Reinforced activity and weight lifting restrictions Continue?Gabapentin?800 mg 3 times a day,?Oxycodone-Acetaminophen?10-325 mg every 6 hours as needed,?Tizanidine?4 mg 3 times a day as needed and?Salsalate ?500 mg 2 tablets 3 times a day with food She has been referred to physical therapy as needed when her low back pain flares up (8) GERD without esophagitis: Code(s): K21.9 - Gastro-esophageal reflux disease without esophagitis Plan: Dietary restrictions reinforced Continue Omeprazole 20 mg QD (9) Vitamin D deficiency: Code(s): E55.9 - Vitamin D deficiency, unspecified Plan: Continue Vitamin D3 2000 units QD (10) Insomnia: Code(s): G47.00 - Insomnia, unspecified Qualifiers: Insomnia type: unspecified Qualified Code(s): G47.00 - Insomnia, unspecified Plan: Sleep hygiene reinforced Continue Zolpidem 10 mg once a day at bedtime as needed and Trazodone 50 mg Q HS PRN (11) Anxiety: Code(s): F41.9 - Anxiety disorder, unspecified Plan: Continue Clonazepam 0.5 mg 1 tablet twice a day as needed and Hydroxyzine 10 mg 1 tablet twice a day as needed (12) Depression: Code(s): F32.9 - Major depressive disorder, single episode, unspecified Qualifiers: Active/Remission status: currently active Depression Type: major depressive disorder Major depression episode severity: unspecified Major depression recurrence: recurrent Qualified Code(s): F33.9 - Major depressive disorder, recurrent, unspecified Plan: Follow-up with Psychiatry as scheduled (13) Obesity (BMI 30-39.9): Code(s): E66.9 - Obesity, unspecified Plan: Reinforced diet; exercise and weight are unrealistic given patient's multiple comorbidities Plan Follow up in 3 months Orders: Orders Comprehensive [place]. Panel Fast 3 Months E78.00 - Pure hypercholesterolemia, unspecified TSH reflex Free T4 3 Months E78.00 - Pure hypercholesterolemia, unspecified Complete Blood Count Auto Diff 3 Months D64.9 - Anemia, unspecified Lipid Panel 3 Months E78.00 - Pure hypercholesterolemia, unspecified UA CC w/rflx Micro + Cult 3 Months R30.0 - Dysuria Vitamin D 25-OH Total 3 Months E55.9 - Vitamin D deficiency, unspecified Coding Level of Care Code Est Pt Level 4 (40159) Diagnoses Dyslipidemia E78.5 Discoid lupus L93.0 Elevated LFTs R79.89 Mild persistent asthma without complication J45.30 Asthma complication type: uncomplicated Asthma persistence: persistent Asthma severity: mild Migraine without status migrainosus, not intractable, unspecified migraine type G43.909 Intractability: not intractable Migraine type: unspecified Status migrainosus presence: without status migrainosus Fibromyalgia M79.7 Lumbar degenerative disc disease M51.36 GERD without esophagitis K21.9 Vitamin D deficiency E55.9 Insomnia, unspecified type G47.00 Insomnia type: unspecified Anxiety F41.9 Episode of recurrent major depressive disorder, unspecified depression episode severity F33.9 Active/Remission status: currently active Depression Type: major depressive disorder Major depression episode severity: unspecified Major depression recurrence: recurrent Obesity (BMI 30-39.9) E66.9
[2024-02-10 15:01] VITALS: BP 140/68; PULSE 90; O2SAT 95; BMI 34.7
== END 2024-02-10 15:42 | disposition home or self-care (01) ==
PROVIDERS: PCP Internal Medicine; Visit Provider Internal Medicine
DX: L93.0 Discoid lupus erythematosus (principal); E78.5 Hyperlipidemia, unspecified; J45.30 Mild persistent asthma, uncomplicated; F33.9 Major depressive disorder, recurrent, unspecified; G43.909 Migraine, unspecified, not intractable, without status migrainosus; M79.7 Fibromyalgia; M51.36 Other intervertebral disc degeneration, lumbar region; K21.9 Gastro-esophageal reflux disease without esophagitis; E55.9 Vitamin D deficiency, unspecified; G47.00 Insomnia, unspecified; F41.9 Anxiety disorder, unspecified
CPT/HCPCS: 99214

== ENCOUNTER 2024-05-26 09:34 | Outpatient (REF) | payer OTHER, SELFPAY ==
[2024-05-26 10:26] LABS: MANUAL DIFF FLAG NO
[2024-05-26 10:46] LABS: Appearance Urine Clear; Color Urine Yellow; Glucose Urine UA Negative (Negative); Leukocyte Esterase Urine Trace (Negative); Nitrite Urine Negative (Negative); PH 5.5 (5.0-9.0); Specific Gravity - Urine 1.015 (1.005-1.025); UMIC TRIGGER UACC YES; Urine Blood Negative (Negative); Urine Ketones Negative (Negative); Urine Protein Negative (Neg-Trace)
[2024-05-26 10:46] LABS: Basophils Percent Auto 0.4 % (0-2); Eosinophils Absolute Auto 0.2 X10*3/uL (0.0-0.4); Eosinophils Percent Auto 2.1 % (0-4); Hematocrit 45.5 % (37.0-47.0); Hemoglobin 15.5 g/dl (12.0-16.0); Imm Gran Abs Auto 0.03 X10*3/uL (0.00-0.03); Imm Gran Pct Auto 0.3 % (0.0-0.4); Lymphocytes Absolute Auto 3.1 X10*3/uL (1.2-4.9); Lymphocytes Percent Auto 34.6 % (20-40); Mean Corpuscular HGB Conc 34.1 g/dl (31.0-35.0); Mean Corpuscular Hemoglobin 30.2 pg (27.0-33.0); Mean Corpuscular Volume 88.7 fL (80.0-98.0); Monocytes Absolute Auto 0.6 X10*3/uL (0.1-1.2); Monocytes Percent Auto 6.3 % (2-11); Neutrophils Percent Auto 56.3 % (45-73); Platelet Count 264 X10*3/uL (160-400); Red Blood Count 5.13 X10*6/uL (4.20-5.50); Red Cell Distribution Width 12.8 % (11.0-16.0); White Blood Count 8.9 X10*3/uL (4.8-10.8)
[2024-05-26 11:01] LABS: Bacteria Urine Trace (None Seen); Hyaline Casts Urine 0-2 /LPF (0-2); RBC Urine 0-2 /HPF (0-2); WBC Urine 0-5 /HPF (0-5)
[2024-05-26 11:49] LABS: Alanine Aminotransferase 28 U/L (0-31); Alkaline Phosphatase 128 U/L (39-117); Anion Gap 12 (12-20); Aspartate Amino Transferase 37 U/L (5-31); Bilirubin Total 0.6 mg/dL (0.0-1.0); Blood Urea Nitrogen 8 mg/dL (9-16); Calcium 9.7 mg/dL (8.4-10.2); Carbon Dioxide 28 mmol/L (22-29); Chloride 106 mmol/L (96-108); Cholesterol 185 mg/dL (<200); Estimated Glomerular Filt Rate > 60; Glucose Fasting 100 mg/dL (60-99); HDL Cholesterol 48 mg/dL (>40); LDL Cholesterol Calculated 120 mg/dL (<100); Potassium 3.8 mmol/L (3.3-5.1); Sodium 142 mmol/L (135-145); Total Protein 8.3 g/dL (6.5-8.0); Triglycerides 86 mg/dL (<150)
[2024-05-26 12:13] LABS: TSH reflex Free T4 1.36 uIU/mL (0.32-4.0); Vitamin D 25-OH Total 28.6 ng/mL (>30)
== END 2024-05-26 09:35 | disposition home or self-care (01) ==
LOC: HO.LAB 09:34
PROVIDERS: PCP Internal Medicine; Visit Provider Internal Medicine
DX: E78.00 Pure hypercholesterolemia, unspecified (principal); D64.9 Anemia, unspecified; E55.9 Vitamin D deficiency, unspecified; R30.0 Dysuria
CPT/HCPCS: 36415; 80053; 80061; 81001; 82306; 84443; 85025

== ENCOUNTER 2024-05-28 13:27 | Outpatient (AMB) | payer OTHER, SELFPAY ==
--- NOTE | 2024-05-28 13:50 | A.OFFPC_ITS ---
Vital Signs 05/28/24 13:57 Height 5 ft 2 in Weight 190 lb BMI 34.7 BP 132/62 Blood Pressure Location Lt brachial Position Sitting Pulse 96 Pulse Source Pulse Oximeter Pulse Oximetry (%) 92 Oxygen Delivery Method Room Air Intake Visit Reasons: 3mth f/u Intake Note: Patient is here to follow up on Anemia, Hypercholesterolemia, Asthma. Street Superintendent Required: Yes Street Superintendent Language: Tanzanian Taxicab Starter: Not Required per policy Accompanied by: Self / Same As Patient Allergies hydroxychloroquine [From [facility]] Allergy (Intermediate, Verified 05/28/24 14:56) SHORTNESS, CHEST TIGHTNESS , RASH oseltamivir Allergy (Unknown, Verified 05/28/24 14:56) Unknown Medication List - Last Reconciled 05/28/24 by Marcus Pedersen MD albuterol sulfate 2.5 mg (3 mL) inhalation TID PRN albuterol sulfate 90 mcg/actuation (ProAir HFA) 2 puffs PO QID PRN 30 days anifrolumab-fnia 300 mg IV Q4W aspirin 81 mg PO DAILY atorvastatin 10 mg PO BEDTIME 90 days bupropion HCl XL 300 mg PO DAILY cetirizine 10 mg PO DAILY PRN 90 days chloroquine phosphate 250 mg PO DAILY cholecalciferol (vitamin D3) 50 mcg PO DAILY 90 days clonazepam 0.5 mg PO BID PRN 30 days docusate sodium 100 mg PO BID PRN folic acid 1 mg PO DAILY 90 days gabapentin 800 mg PO TID 30 days [GRAB BAR As directed] hydroxyzine HCl 10 mg PO BID PRN miscellaneous medical supply 1 ea miscellaneous .daily as needed 365 days mycophenolate mofetil 500 mg PO BID omeprazole 20 mg PO DAILY oxycodone 10 mg PO Q6H PRN 28 days [ROLLATOR As directed] [SHOWER CHAIR As directed] tacrolimus 0.03% 1 appl topical BID tiotropium bromide (Spiriva with HandiHaler) 1 cap inhalation DAILY tizanidine 4 mg PO TID PRN topiramate 100 mg PO BID trazodone 50 mg PO BEDTIME PRN 30 days varenicline 1 mg PO BID 28 days [WHEELCHAIR (standard lightweight) As directed] zolpidem 10 mg PO BEDTIME PRN 30 days Tobacco use date assessed: 05/28/24 Dental Screening Dental Screen Date: 02/10/24 HPI 3mth f/u HPI Details Patient comes in today for her follow up visit States that she currently feels okay She denies any headaches or dizziness Denies any chest pains, no increased shortness of breath No nausea/ vomiting, no abdominal pain No change in bowel habits noted States that her chronic low back pain and joint pains remain adequately controlled on her current medication She had her follow-up labs done a couple of days ago - to discuss her results She is receiving IV infusion of Saphnelo at [facility] every 4 weeks for her discoid lupus - Rx is being prescribed and managed by her sugar cane planter machine operator at [facility] (Dr. Luz Qureshi) She would also like to get her flu shot today PFS Medical History RSV bronchitis Vitamin D deficiency Fibromyalgia Migraine Dental abscess Constipation Obesity (BMI 30-39.9) Depression Anxiety Insomnia GERD without esophagitis Elevated LFTs Dyslipidemia Discoid lupus Asthma Lumbar degenerative disc disease Surgical History History of colonoscopy History of laparoscopic appendectomy History of sinus surgery History of lumbar surgery S/P total abdominal hysterectomy H/O hand surgery History of foot surgery History of tubal ligation Family History Father Heart disease Hypertension Stroke CVD (cardiovascular disease) Mother Hypertension Asthma Diabetes Sister Diabetes Hypertension Other Mental problem Social History Housing: House Alcohol intake: never Patient Tobacco Use Status: Former Tobacco user Tobacco use type: Cigarette Cigarettes Per Day: 4 e-Cigarette/Vaping Use: Never Used Second Hand Smoke Exposure: Yes service: No Current occupational status: disabled Cognitive needs: Yes (walker) Hearing needs: No Vision needs: Yes Questionnaire Thrive Questionnaire Date Thrive assessed: 02/10/24 MARY-7 AMB Questionnaire MARY-7 Date MARY - 7 assessed: 05/28/24 Feeling nervous, anxious, or on edge: 0 = Not at all Not being able to stop or control worryin = Not at all Worrying too much about different things: 0 = Not at all Trouble relaxin = Not at all Being so restless that it is hard to sit still: 0 = Not at all Becoming easily annoyed or irritable: 0 = Not at all Feeling afraid as if something awful might happen: 0 = Not at all Total MARY-7 score (0-4 normal; 5-9 mild; 10-14 moderate; 15-21 severe): 0 Source: Developed by Drs. Jesus Queen, Belia Kc, Inocente Gibson and colleagues, with an educational ang from [employer]. Review of Systems Const Denies chills, Denies difficulty sleeping, Reports fatigue (at times), Denies fever(s) and Denies headache(s) ENT Denies dysphagia, Denies dizziness, Denies otalgia, Denies headache(s), Denies neck pain, Denies odynophagia and Denies sore throat Card Denies chest pain, Denies palpitations and Denies dyspnea Resp Denies chest congestion, Denies cough and Denies dyspnea GI Denies abdominal pain, Denies constipation, Denies dysphagia, Denies heartburn, Denies diarrhea, Denies nausea, Denies odynophagia and Denies vomiting Denies difficulty voiding, Denies nocturia, Denies dysuria and Denies urinary urgency Musc Reports back pain (over the lower back - chronic), Reports arthralgias (i nvolving multiple joints) and Denies neck pain Skin/Breast Reports rash (scattered facial rash) Neuro Denies dizziness and Denies headache(s) Endo Reports fatigue (at times) and Denies palpitations Physical exam (Primary Care) Vital Signs: Last Vital Signs Pulse 96 05/28/24 13:57 BP 132/62 05/28/24 13:57 Pulse Ox 92 05/28/24 13:57 Oxygen Delivery Method Room Air 05/28/24 13:57 BMI result Body Mass Index 34.7 Tobacco/Smoking Status: Tobacco use Status Tobacco use date assessed 05/28/24 05/28/24 14:21 Patient Tobacco Use Status Former Tobacco user 05/28/24 13:55 Tobacco use type Cigarette 05/28/24 13:55 e-Cigarette/Vaping Use Never Used 05/28/24 13:55 Thrive Assessment: Date of Thrive Assessment Date Thrive assessed 02/10/24 05/28/24 13:55 Const General: no acute distress and alert HENMT Ears: TM's normal bilaterally and EAC's normal Throat: Yes posterior oropharynx normal and Yes tonsils normal (no TP congestion noted) Neck Neck: Yes no lymphadenopathy and Yes supple Thyroid: Thyroid normal Resp Auscultation: clear to auscultation bilaterally, no rales and no wheezes Cardio Rate: regular rate Rhythm: regular rhythm Heart sounds: no murmurs GI Palpation (GI): Soft to palpation and nontender Auscultation: normal bowel sounds Back/Spine/Pelvis Thoracic/Lumbar Spine: lumbar spinal tenderness Skin Other: (+) scattered patchy erythematous discoid and urticarial rash on the face (forehead and cheeks especially) Extrem General: Yes no clubbing, cyanosis or edema Left lower extremity: foot Details: tenderness Location: of the dorsal foot Office Procedures Flu Questionnaire Does the patient have a severe egg allergy?: No Does the patient have severe life threatening allergies?: No Does the patient have a fever or illness today?: No Has the patient ever had Guillain-[place] Syndrome?: No Has the patient ever had any past reaction to a flu shot?: No Immunizations Fluarix Triv 1949-1770 (PF) 45 mcg (15 mcg x 3)/0.5 mL IM syringe Performing Provider: Marcus Pedersen MD [facility] Administered by: Xiomara Lobo LPN on 05/28/24 14:28 Dose Route Admin Location Dispensed Lot Number Expiration Date NDC Diploma Maker 0.5 mL IM Right Deltoid 0.5 mL [id number] 01/31/25 07720-209-36 [facility] VIS Given Date VIS Provided VIS Publication Date 05/28/24 Single Vaccine 21 Eligibility Eligibility Date Funding Source Not [facility] Eligible 05/28/24 Private Results Reviewed Results Reviewed: Laboratory Tests 05/26/24 05/26/24 10:22 10:24 WBC 8.9 Hgb 15.5 Hct 45.5 Plt Count 264 Sodium 142 Potassium 3.8 Creatinine 0.73 Estimated GFR > 60 Fasting Glucose 100 H Calcium 9.7 AST 37 H ALT 28 Triglycerides 86 Cholesterol 185 LDL Cholesterol, Calc 120 H HDL Cholesterol 48 25-OH Vitamin D Total 28.6 L TSH 1.36 Ur Specific [place] 1.015 Urine Protein Negative Urine Glucose (UA) Negative Urine Blood Negative Urine Nitrite Negative Ur Leukocyte Esterase Trace H Coding Level of Care Code Est Pt Level 4 (20861) Diagnoses Dyslipidemia E78.5 Discoid lupus L93.0 Elevated LFTs R79.89 Mild persistent asthma without complication J45.30 Asthma severity: mild Asthma persistence: persistent Asthma complication type: uncomplicated Migraine without status migrainosus, not intractable, unspecified migraine type G43.909 Migraine type: unspecified Status migrainosus presence: without status migrainosus Intractability: not intractable Fibromyalgia M79.7 Degeneration of intervertebral disc of lumbar region with discogenic back pain M51.360 Disc-related pain type: discogenic back pain only GERD without esophagitis K21.9 Vitamin D deficiency E55.9 Insomnia, unspecified type G47.00 Insomnia type: unspecified Anxiety F41.9 Episode of recurrent major depressive disorder, unspecified depression episode severity F33.9 Depression Type: major depressive disorder Major depression recurrence: recurrent Active/Remission status: currently active Major depression episode severity: unspecified Obesity (BMI 30-39.9) E66.9 Assessment & Plan Assessment & Plan (1) Dyslipidemia: Code(s): E78.5 - Hyperlipidemia, unspecified Category: Medical Plan: Results of her labs done back a few days ago reviewed and discussed with patient - she is advised that her cholesterol levels have improved slightly from previous Reinforced low cholesterol diet Continue Atorvastatin 10 mg QD - states that she is now back on her Rx Will recheck her labs and fasting lipids in 3 months for follow up (2) Discoid lupus: Code(s): L93.0 - Discoid lupus erythematosus Category: Medical Plan: She was on Methotrexate in the past but this was reportedly discontinued due to her elevated BP and LFTs She was on Chloroquine 250 mg QD Mondays through Fridays and off the Rx on Saturdays and Sundays; she was also on Mycophenolate 500 mg BID but is now on IV infusion of Saphnelo every 4 weeks - gets her infusion at [facility] in [place] through her sugar cane planter machine operator there, Dr. Sheridan Qureshi She still goes to Dermatology in [place], [place] for her regular follow ups (3) Elevated LFTs: Code(s): R79.89 - Other specified abnormal findings of blood chemistry Category: Medical Plan: This is most likely related to her weight Her LFTs were elevated on her previous labs but are trending now back to normal Abdominal US done a few months ago revealed (+) diffuse increase in echogenicity of the liver characteristic of primary hepatocellular disease, possibly due to hepatic steatosis and severely limits visualization. CT scan should offer better visualization if indicated Will continue to monitor her LFTs closely for now and if these get worse, will then consider getting abdominal CT (4) Asthma: Code(s): J45.909 - Unspecified asthma, uncomplicated Category: Medical Qualifiers: Asthma severity: mild Asthma persistence: persistent Asthma complication type: uncomplicated Qualified Code(s): J45.30 - Mild persistent asthma, uncomplicated Plan: Stable/controlled lately Continue Advair Diskus 100-50 mcg 1 puff twice a day, Spiriva Handihaler 18 mcg inhale contents of 1 capsule once a day and ProAir HFA 2 puffs 4 times a day as needed (5) Migraine: Code(s): G43.909 - Migraine, unspecified, not intractable, without status migrainosus Category: Medical Qualifiers: Migraine type: unspecified Status migrainosus presence: without status migrainosus Intractability: not intractable Qualified Code(s): G43.909 - Migraine, unspecified, not intractable, without status migrainosus Plan: Controlled Continue Topiramate 100 mg BID for ALFARO prophylaxis Follow up with neurology as scheduled (6) Fibromyalgia: Code(s): M79.7 - Fibromyalgia Category: Medical Plan: She was previously taken off Duloxetine due to high BP and elevated LFTs; currently remains on Gabapentin and Tizanidine Follow up with rheumatology as scheduled (7) Lumbar degenerative disc disease: Code(s): M51.36 - Other intervertebral disc degeneration, lumbar region Category: Medical Qualifiers: Disc-related pain type: discogenic back pain only Qualified Code(s): M51.360 - Other intervertebral disc degeneration, lumbar region with discogenic back pain only Plan: Reinforced activity and weight lifting restrictions Continue?Gabapentin?800 mg 3 times a day,?Oxycodone-Acetaminophen?10-325 mg every 6 hours as needed,?Tizanidine?4 mg 3 times a day as needed and?Salsalate ?500 mg 2 tablets 3 times a day with food She has been referred to physical therapy as needed when her low back pain flares up (8) GERD without esophagitis: Code(s): K21.9 - Gastro-esophageal reflux disease without esophagitis Category: Medical Plan: Dietary restrictions reinforced Continue Omeprazole 20 mg QD (9) Vitamin D deficiency: Code(s): E55.9 - Vitamin D deficiency, unspecified Category: Medical Plan: Continue Vitamin D3 2000 units QD (10) Insomnia: Code(s): G47.00 - Insomnia, unspecified Category: Medical Qualifiers: Insomnia type: unspecified Qualified Code(s): G47.00 - Insomnia, unspecified Plan: Sleep hygiene reinforced Continue Zolpidem 10 mg once a day at bedtime as needed and Trazodone 50 mg Q HS PRN (11) Anxiety: Code(s): F41.9 - Anxiety disorder, unspecified Category: Medical Plan: Continue Clonazepam 0.5 mg 1 tablet twice a day as needed and Hydroxyzine 10 mg 1 tablet twice a day as needed (12) Depression: Code(s): F32.9 - Major depressive disorder, single episode, unspecified Category: Medical Qualifiers: Depression Type: major depressive disorder Major depression recurrence: recurrent Active/Remission status: currently active Major depression episode severity: unspecified Qualified Code(s): F33.9 - Major depressive disorder, recurrent, unspecified Plan: Follow-up with Psychiatry as scheduled (13) Obesity (BMI 30-39.9): Code(s): E66.9 - Obesity, unspecified Category: Medical Plan: Reinforced diet; exercise and weight are unrealistic given patient's multiple comorbidities Plan As requested, flu vaccine given to the patient today Follow up in 3 months Orders: Orders UA CC w/rflx Micro + Cult 3 Months R30.0 - Dysuria Influenza [id number] Immunization 05/28/24 Z23 - Encounter for immunization Comprehensive Chestnut. Panel Fast 3 Months E78.00 - Pure hypercholesterolemia, unspecified Lipid Panel 3 Months E78.00 - Pure hypercholesterolemia, unspecified Complete Blood Count Auto Diff 3 Months D64.9 - Anemia, unspecified Vitamin D 25-OH Total 3 Months E55.9 - Vitamin D deficiency, unspecified
[2024-05-28 13:57] VITALS: BP 132/62; PULSE 96; O2SAT 92; BMI 34.7
== END 2024-05-28 15:15 | disposition home or self-care (01) ==
PROVIDERS: PCP Internal Medicine; Visit Provider Internal Medicine
DX: E78.5 Hyperlipidemia, unspecified (principal); L93.0 Discoid lupus erythematosus; F33.9 Major depressive disorder, recurrent, unspecified; J45.30 Mild persistent asthma, uncomplicated; G43.909 Migraine, unspecified, not intractable, without status migrainosus; M79.7 Fibromyalgia; M51.360 Other intervertebral disc degeneration, lumbar region with discogenic back pain only; K21.9 Gastro-esophageal reflux disease without esophagitis; E55.9 Vitamin D deficiency, unspecified; G47.00 Insomnia, unspecified; F41.9 Anxiety disorder, unspecified

== ENCOUNTER → 2024-05-28 13:27 | Outpatient (BNVA) | payer OTHER, SELFPAY | PROVIDERS: PCP Internal Medicine; Visit Provider Internal Medicine | DX: Z23 Encounter for immunization (principal); E78.5 Hyperlipidemia, unspecified; R79.89 Other specified abnormal findings of blood chemistry; L93.0 Discoid lupus erythematosus; J45.30 Mild persistent asthma, uncomplicated; M79.7 Fibromyalgia; K21.9 Gastro-esophageal reflux disease without esophagitis; M51.360 Other intervertebral disc degeneration, lumbar region with discogenic back pain only; E55.9 Vitamin D deficiency, unspecified; F41.9 Anxiety disorder, unspecified; F33.9 Major depressive disorder, recurrent, unspecified; E66.9 Obesity, unspecified | CPT/HCPCS: 90471; 90656; 96127; 99212 ==

== ENCOUNTER 2024-09-01 08:53 | Outpatient (REF) | payer OTHER, SELFPAY ==
[2024-09-01 09:09] LABS: MANUAL DIFF FLAG NO
[2024-09-01 09:34] LABS: Basophils Absolute Auto 0.1 X10*3/uL (0.0-0.2); Basophils Percent Auto 0.5 % (0-2); Eosinophils Absolute Auto 0.2 X10*3/uL (0.0-0.4); Eosinophils Percent Auto 1.5 % (0-4); Hematocrit 45.1 % (37.0-47.0); Imm Gran Abs Auto 0.05 X10*3/uL (0.00-0.03); Imm Gran Pct Auto 0.5 % (0.0-0.4); Lymphocytes Absolute Auto 2.9 X10*3/uL (1.2-4.9); Lymphocytes Percent Auto 26.3 % (20-40); Mean Corpuscular HGB Conc 33.3 g/dl (31.0-35.0); Mean Corpuscular Hemoglobin 29.4 pg (27.0-33.0); Mean Corpuscular Volume 88.4 fL (80.0-98.0); Mean Platelet Volume 10.2 fL (9.4-12.3); Monocytes Absolute Auto 0.6 X10*3/uL (0.1-1.2); Neutrophils Absolute Auto 7.3 x10*3/uL (2.0-8.3); Neutrophils Percent Auto 66.2 % (45-73); Platelet Count 298 X10*3/uL (160-400); Red Cell Distribution Width 14.3 % (11.0-16.0)
[2024-09-01 09:36] LABS: Appearance Urine Cloudy; Color Urine Yellow; Glucose Urine UA Negative (Negative); Leukocyte Esterase Urine Small (1+) (Negative); Nitrite Urine Negative (Negative); PH 5.5 (5.0-9.0); Specific Gravity - Urine 1.015 (1.005-1.025); UMIC TRIGGER UACC YES; Urine Blood Negative (Negative); Urine Ketones Negative (Negative); Urine Protein Negative (Neg-Trace)
[2024-09-01 09:55] LABS: Bacteria Urine 1+ (None Seen); Hyaline Casts Urine 0-2 /LPF (0-2); RBC Urine 0-2 /HPF (0-2); UACC Culture Trigger YES; WBC Urine 0-5 /HPF (0-5)
[2024-09-01 10:05] LABS: Alanine Aminotransferase 14 U/L (0-31); Albumin Level 3.9 g/dL (3.5-5.0); Anion Gap 11 (12-20); Aspartate Amino Transferase 23 U/L (5-31); Bilirubin Total 0.4 mg/dL (0.0-1.0); Blood Urea Nitrogen 9 mg/dL (9-16); Calcium 9.9 mg/dL (8.4-10.2); Carbon Dioxide 25 mmol/L (22-29); Chloride 109 mmol/L (96-108); Cholesterol 204 mg/dL (<200); Estimated Glomerular Filt Rate > 60; Glucose Fasting 110 mg/dL (60-99); HDL Cholesterol 48 mg/dL (>40); LDL Cholesterol Calculated 138 mg/dL (<100); Potassium 3.8 mmol/L (3.3-5.1); Sodium 141 mmol/L (135-145); Total Protein 8.6 g/dL (6.5-8.0); Triglycerides 93 mg/dL (<150)
[2024-09-01 10:27] LABS: Vitamin D 25-OH Total 21.2 ng/mL (>30)
[2024-09-01 11:01] LABS: Alkaline Phosphatase 129 U/L (39-117)
== END 2024-09-01 08:54 | disposition home or self-care (01) ==
LOC: HO.LAB 08:53
PROVIDERS: PCP Internal Medicine; Visit Provider Internal Medicine
DX: D64.9 Anemia, unspecified (principal); E78.00 Pure hypercholesterolemia, unspecified; E55.9 Vitamin D deficiency, unspecified
CPT/HCPCS: 36415; 80053; 80061; 81001; 82306; 85025; 87086

== ENCOUNTER 2024-09-03 14:27 | Outpatient (AMB) | payer OTHER, SELFPAY ==
--- OUTSIDE RECORDS SUMMARY | 2024-09-03 14:29 | XMS_ITS | Clinical Summary ---
Author Organization [facility] Address [address] [place] [address] Care Team Providers Care Payroll Specialist Name Role Phone Unavailable Primary Care Provider Unavailabl e Source Comments PLEASE NOTE, if this patient is a minor, it may be UNLAWFUL to discuss sensitive information that is contained in these records (such as FAMILY PLANNING, MENTAL HEALTH or SUBSTANCE ABUSE) with the minor patient's parent or other person without the patient's specific authorization.[facility] Immunizations Name Administration Dates Next Due Moderna COVID-19 Vaccine, re d cap blue label, 12+ Primary Series 11/29/2020,11/01/2020 Social History Tobacco Use Types Packs/Day Years Used Date Smoking Tobacco: Never Assessed Social Connections Answer Date Recorded Social Connections and Isolation 0 11/01/2020 Financial Resource Strain Answer Date R ecorded Financial Resource Strain 0 2020 Stress Answer Date Recorded Stress 0 11/01/2020 Physical Activity Answer Date Recorded Physical Activity 0 11/01/2020 Food Insecurity Answer Date Recorded Food 0 11/01/2020 Transportation Needs Answer Date Record ed Transportation 0 11/01/2020 Housing Stability Answer Date Recorded Housing 0 11/01/2020 Safety and Environment Answer Date Lev rded Safety 0 11/01/2020 Utilities Answer Date Recorded Utilities 0 11/01/2020 Employment Answer Date Recorded Employment 0 11/01/2020 Comments Unknown Sex and Gender Information Value Date Recorded Sex Assigned at Not on file Legal Sex Female 7:47 AM PDT Gender Identity Not on file Sexual Orientation Not on file Plan of Treatment Health Maintenance Due Date Last Done Comments Diabetes Screening 1962 HPV Screening 1962 Hepatitis C Screening 1962 Lipid Screening 1962 Pap + HPV 1962 Tobacco Screening 1962 HIV Screening 1977 Hypertension Screening (#1) 1980 Cervical Cancer Screening 1983 Pap Smear 1983 Breast Cancer Screening (Mammogram) 2002 CT Colonography 2007 Colonoscopy 2007 Colorectal Cancer Screening 2007 FIT/gFOBT 2007 Fecal DNA 2007 Flexible Sigmoidoscopy 2007 Imm-Zoster, Recombinant (1 of 2) 2012 [id number] ( season) 2024 021, 11/01/2020 Imm-Influenza (#1) 2024 06/13/2020, 0 09/22/2019, 06/30/2018, Additional history exists Alcohol and Drug Screen 08/04/2024 Depression Annual Screen 08/04/2024 Imm-DTaP/Tdap/Td (2 - Td or Tdap) 08/11/2025 016 Cervical Ablation/Cold-Knife Conization Discontinued Cervical Cryotherapy Discontinued Colposcopy Discontinued Endometrial Biopsy Discontinued Excision/Leep Discontinued HPV Genotyping Discontinued Vaginal Pap Discontinued Vulvoscopy Discontinued Insurance [employer] Member Subscriber Plan / Payer (Ef fective 2017-Present) Name:Medina Mcmahan Relation to Subscriber:Self Name:Medina Mcmahan Payer ID:[id number] Group ID:[id number] Type:Medicaid Address: [facility] [address] [place] [address]
[2024-09-03 15:15] VITALS: BP 130/82; PULSE 91; O2SAT 93; BMI 34.5
--- NOTE | 2024-09-03 15:15 | MHC.PC.OV ---
Vital Signs 09/03/24 15:15 Height 5 ft 2 in Weight 188 lb 8 oz BMI 34.5 BP 130/82 Blood Pressure Location Lt brachial Position Sitting Pulse 91 Pulse Source Pulse Oximeter Pulse Oximetry (%) 93 Oxygen Delivery Method Room Air Intake Visit Reasons: 3mth f/u Showroom Executive Director Required: No Accompanied by: Daughter Allergies hydroxychloroquine [From [facility]] Allergy (Intermediate, Verified 09/03/24 15:49) SHORTNESS, CHEST TIGHTNESS , RASH oseltamivir Allergy (Unknown, Verified 09/03/24 15:49) Unknown Medication List - Last Reconciled 09/03/24 by Marcus Pedersen MD albuterol sulfate 90 mcg/actuation (ProAir HFA) 2 puffs PO QID PRN 30 days albuterol sulfate 2.5 mg (3 mL) inhalation TID PRN anifrolumab-fnia 300 mg IV Q4W aspirin 81 mg PO DAILY atorvastatin 10 mg PO BEDTIME 90 days bupropion HCl XL 300 mg PO DAILY cetirizine 10 mg PO DAILY PRN 90 days chloroquine phosphate 250 mg PO DAILY cholecalciferol (vitamin D3) 50 mcg PO DAILY 90 days clonazepam 0.5 mg PO BID PRN 30 days docusate sodium 100 mg PO BID PRN folic acid 1 mg PO DAILY 90 days gabapentin 800 mg PO TID 30 days [GRAB BAR As directed] hydroxyzine HCl 10 mg PO BID PRN miscellaneous medical supply 1 ea miscellaneous .daily as needed 365 days mycophenolate mofetil 500 mg PO BID omeprazole 20 mg PO DAILY oxycodone 10 mg PO Q6H PRN 28 days [ROLLATOR As directed] [SHOWER CHAIR As directed] tacrolimus 0.03% 1 appl topical BID tiotropium bromide (Spiriva with HandiHaler) 1 cap inhalation DAILY tizanidine 4 mg PO TID PRN topiramate 100 mg PO BID trazodone 50 mg PO BEDTIME PRN 30 days varenicline 1 mg PO BID 28 days [WHEELCHAIR (standard lightweight) As directed] zolpidem 10 mg PO BEDTIME PRN 30 days Tobacco use date assessed: 09/03/24 Dental Screening Dental Screen Date: 09/03/24 Did you have a dental visit in the last 12 months?: Yes Did you have a dental problem in the last 6 months where you did not have access to dental care?: No Was dental information given to patient?: Patient has dentist HPI 3mth f/u HPI Details Patient comes in today for her follow-up visit States that she feels okay and that her chronic low back pain and joint pains remain adequately controlled on her current medication She is presently still receiving IV infusions of Saphnelo at [facility] every 4 weeks for her discoid lupus - Rx is being prescribed and managed by her bowling ball grader and marker at [facility] (Dr. Luz Qureshi) She denies any headaches or dizziness Denies any chest pains, no increased shortness of breath No nausea/ vomiting, no abdominal pain No change in bowel habits noted She had her follow up labs done a couple of days ago - to discuss her results [facility] Medical History RSV bronchitis Vitamin D deficiency Fibromyalgia Migraine Dental abscess Constipation Obesity (BMI 30-39.9) Depression Anxiety Insomnia GERD without esophagitis Elevated LFTs Dyslipidemia Discoid lupus Asthma Lumbar degenerative disc disease Surgical History History of colonoscopy History of laparoscopic appendectomy History of sinus surgery History of lumbar surgery S/P total abdominal hysterectomy H/O hand surgery History of foot surgery History of tubal ligation Family History Father Heart disease Hypertension Stroke CVD (cardiovascular disease) Mother Hypertension Asthma Diabetes Sister Diabetes Hypertension Other Mental problem Social History Housing: House Alcohol intake: never Patient Tobacco Use Status: Former Tobacco user Tobacco use type: Cigarette Cigarettes Per Day: 4 e-Cigarette/Vaping Use: Never Used Second Hand Smoke Exposure: Yes service: No Current occupational status: disabled Cognitive needs: Yes (walker) Hearing needs: No Vision needs: Yes Questionnaire PHQ-9 Over the last 2 weeks, how often have you been bothered by any of the following problems? 1. Little interest or pleasure in doing things: not at all 2. Feeling down, depressed, or hopeless: more than half the days 3. Trouble falling or staying asleep, or sleeping too much: several days 4. Feeling tired or having little energy: several days 5. Poor appetite or overeating: not at all 6. Feeling bad about yourself - or that you are a failure or have let yourself or your family down: not at all 7. Trouble concentrating on things, such as reading the newspaper or watching television: not at all 8. Moving or speaking so slowly that other people could have noticed. Or the opposite - being so fidgety or restless that you have been moving around a lot more than usual: not at all 9. Thoughts that you would be better off or of hurting yourself in some way: not at all Total score: 4 Depression Screening Interpretation: Positive Depression Screening Follow-up: Existing condition and In treatment Depression Screening Done: Yes 35025 - PHQ-9 Billing: Yes Source: Developed by Drs. Jesus Queen, Belia Kc, Inocente Gibson and colleagues, with an educational ang from [employer]. Thrive Questionnaire Date Thrive assessed: 09/03/24 I am a: Patient What is your living situation today?: I have a steady place to live Within the past 12 months, did the food you bought not last and you didn't have the money to get more?: Never true Within the past 12 months, did you worry whether your food would run out before you got money to buy more?: Never true Do you have trouble paying for medicines?: No Do you have trouble getting transportation to medical appointments?: No Do you have trouble paying your heating and electricity bill?: No Do you have trouble taking care of your child, family member or friend?: No Do you have trouble with day-to-day activities such as bathing, preparing meals, shopping, managing finances, etc.?: No Are you currently unemployed and looking for a job?: No Are you interested in more education?: No Please select the resources that you would like help with: None Currently or been in a relationship where the following occur: No concerns reported THRIVE Score: 0 AUDIT C Alcohol Use Questionnaire (AUDIT-C) 1. How often do you have a drink containing alcohol?: Never 3. How often do you have six or more drinks on one occasion?: Never Total Score: 0 Score Reviewed/Action Taken: Yes MARY-7 AMB Questionnaire MARY-7 Date MARY - 7 assessed: 09/03/24 Feeling nervous, anxious, or on edge: 0 = Not at all Not being able to stop or control worryin = Not at all Worrying too much about different things: 0 = Not at all Trouble relaxin = Not at all Being so restless that it is hard to sit still: 0 = Not at all Becoming easily annoyed or irritable: 0 = Not at all Feeling afraid as if something awful might happen: 0 = Not at all Total MARY-7 score (0-4 normal; 5-9 mild; 10-14 moderate; 15-21 severe): 0 Source: Developed by Drs. Jesus Queen, Belia Kc, Inocente Gibson and colleagues, with an educational ang from [employer]. Review of Systems Const Denies chills, Denies difficulty sleeping, Reports fatigue (at times), Denies fever(s) and Denies headache(s) ENT Denies dysphagia, Denies dizziness, Denies otalgia, Denies headache(s), Denies neck pain, Denies odynophagia and Denies sore throat Card Denies chest pain, Denies palpitations and Denies dyspnea Resp Denies chest congestion, Denies cough and Denies dyspnea GI Denies abdominal pain, Denies constipation, Denies dysphagia, Denies heartburn, Denies diarrhea, Denies nausea, Denies odynophagia and Denies vomiting Denies difficulty voiding, Denies nocturia, Denies dysuria and Denies urinary urgency Musc Reports back pain (over the lower back - chronic), Reports arthralgias (involving multiple joints) and Denies neck pain Skin/Breast Reports rash (scattered facial rash) Neuro Denies dizziness and Denies headache(s) Endo Reports fatigue (at times) and Denies palpitations Physical exam (Primary Care) Vital Signs: Last Vital Signs Pulse 91 09/03/24 15:15 BP 130/82 09/03/24 15:15 Pulse Ox 93 09/03/24 15:15 Oxygen Delivery Method Room Air 09/03/24 15:15 BMI result Body Mass Index 34.5 Tobacco/Smoking Status: Tobacco use Status Tobacco use date assessed 09/03/24 09/03/24 15:19 Patient Tobacco Use Status Former Tobacco user 09/03/24 15:19 Tobacco use type Cigarette 09/03/24 15:19 e-Cigarette/Vaping Use Never Used 09/03/24 15:19 PHQ-9: PHQ-9 Score PHQ-9: Total score 4 09/03/24 15:52 Depression Screening Interpretation: Positive Depression Screening Follow-up: Existing condition and In treatment Thrive Assessment: Date of Thrive Assessment Date Thrive assessed 09/03/24 09/03/24 15:19 Currently or been in a relationship where the following occur: No concerns reported Const General: no acute distress and alert HENMT Ears: TM's normal bilaterally and EAC's normal Throat: Yes posterior oropharynx normal and Yes tonsils normal (no TP congestion noted) Neck Neck: Yes no lymphadenopathy and Yes supple Thyroid: Thyroid normal Resp Auscultation: clear to auscultation bilaterally, no rales and no wheezes Cardio Rate: regular rate Rhythm: regular rhythm Heart sounds: no murmurs GI Palpation (GI): Soft to palpation and nontender Auscultation: normal bowel sounds Back/Spine/Pelvis Thoracic/Lumbar Spine: lumbar spinal tenderness Skin Other: (+) scattered patchy erythematous discoid and urticarial rash on the face (forehead and cheeks especially) Extrem General: Yes no clubbing, cyanosis or edema Left lower extremity: foot Details: tenderness Location: of the dorsal foot Results Reviewed Results Reviewed: Laboratory Tests 09/01/24 09/01/24 09:00 09:07 WBC 11.0 H Hgb 15.0 Hct 45.1 Plt Count 298 Sodium 141 Potassium 3.8 Creatinine 0.67 Estimated GFR > 60 Fasting Glucose 110 H Calcium 9.9 AST 23 ALT 14 Triglycerides 93 Cholesterol 204 H LDL Cholesterol, Calc 138 H HDL Cholesterol 48 25-OH Vitamin D Total 21.2 L Ur Specific [place] 1.015 Urine Protein Negative Urine Glucose (UA) Negative Urine Blood Negative Urine Nitrite Negative Ur Leukocyte Esterase Small (1+) H Coding Level of Care Code Est Pt Level 4 (40199) Diagnoses Dyslipidemia E78.5 Discoid lupus L93.0 Elevated LFTs R79.89 Mild persistent asthma without complication J45.30 Asthma severity: mild Asthma persistence: persistent Asthma complication type: uncomplicated Migraine without status migrainosus, not intractable, unspecified migraine type G43.909 Migraine type: unspecified Status migrainosus presence: without status migrainosus Intractability: not intractable Fibromyalgia M79.7 Degeneration of intervertebral disc of lumbar region with discogenic back pain M51.360 Disc-related pain type: discogenic back pain only GERD without esophagitis K21.9 Vitamin D deficiency E55.9 Insomnia, unspecified type G47.00 Insomnia type: unspecified Anxiety F41.9 Episode of recurrent major depressive disorder, unspecified depression episode severity F33.9 Depression Type: major depressive disorder Major depression recurrence: recurrent Active/Remission status: currently active Major depression episode severity: unspecified Obesity (BMI 30-39.9) E66.9 Additional Codes PHQ-9 - 65236 - PHQ-9 Billing: Yes ([id number]) Assessment & Plan Assessment & Plan (1) Dyslipidemia: Code(s): E78.5 - Hyperlipidemia, unspecified Category: Medical Plan: Results of her labs done a couple of days ago reviewed and discussed with patient - she is advised that her cholesterol levels have increased again from previous, practically reversing the improvements she's had a few months ago Reinforced low cholesterol diet - patient admits to poor compliance with her diet over the recent holidays and will get back on her recommended diet Continue Atorvastatin 10 mg QD Will recheck her labs and fasting lipids in 3 months for follow up (2) Discoid lupus: Code(s): L93.0 - Discoid lupus erythematosus Category: Medical Plan: She was on Methotrexate in the past but this was discontinued due to her elevated BP and LFTs She was on Chloroquine 250 mg QD Mondays through Fridays and off the Rx on Saturdays and Sundays; she was also on Mycophenolate 500 mg BID but is now on IV infusion of Saphnelo every 4 weeks - gets her infusion at [facility] in [place] through her bowling ball grader and marker there, Dr. Sheridan Qureshi She still goes to Dermatology in [place], [place] for her regular follow ups (3) Elevated LFTs: Code(s): R79.89 - Other specified abnormal findings of blood chemistry Category: Medical Plan: Her LFTs were elevated on her previous labs but are now back to normal - these were likely due to her weight Abdominal US done a few months ago revealed (+) diffuse increase in echogenicity of the liver characteristic of primary hepatocellular disease, possibly due to hepatic steatosis and severely limits visualization. CT scan should offer better visualization if indicated Will continue to monitor her LFTs closely for now and if these get worse, will then consider getting an abdominal CT for further evaluation (4) Asthma: Code(s): J45.909 - Unspecified asthma, uncomplicated Category: Medical Qualifiers: Asthma severity: mild Asthma persistence: persistent Asthma complication type: uncomplicated Qualified Code(s): J45.30 - Mild persistent asthma, uncomplicated Plan: Stable/controlled lately Continue Advair Diskus 100-50 mcg 1 puff twice a day, Spiriva Handihaler 18 mcg inhale contents of 1 capsule once a day and ProAir HFA 2 puffs 4 times a day as needed (5) Migraine: Code(s): G43.909 - Migraine, unspecified, not intractable, without status migrainosus Category: Medical Qualifiers: Migraine type: unspecified Status migrainosus presence: without status migrainosus Intractability: not intractable Qualified Code(s): G43.909 - Migraine, unspecified, not intractable, without status migrainosus Plan: Controlled Continue Topiramate 100 mg BID for ALFARO prophylaxis Follow up with neurology as scheduled (6) Fibromyalgia: Code(s): M79.7 - Fibromyalgia Category: Medical Plan: She was previously taken off Duloxetine due to high BP and elevated LFTs; currently remains on Gabapentin and Tizanidine Follow up with rheumatology as scheduled (7) Lumbar degenerative disc disease: Code(s): M51.36 - Other intervertebral disc degeneration, lumbar region Category: Medical Qualifiers: Disc-related pain type: discogenic back pain only Qualified Code(s): M51.360 - Other intervertebral disc degeneration, lumbar region with discogenic back pain only Plan: Reinforced activity and weight lifting restrictions Continue?Gabapentin?800 mg 3 times a day,?Oxycodone-Acetaminophen?10-325 mg every 6 hours as needed,?Tizanidine?4 mg 3 times a day as needed and?Salsalate?500 mg 2 tablets 3 times a day with food She has been referred to physical therapy as needed when her low back pain flares up (8) GERD without esophagitis: Code(s): K21.9 - Gastro-esophageal reflux disease without esophagitis Category: Medical Plan: Dietary restrictions reinforced Continue Omeprazole 20 mg QD (9) Vitamin D deficiency: Code(s): E55.9 - Vitamin D deficiency, unspecified Category: Medical Plan: Continue Vitamin D3 2000 units QD (10) Insomnia: Code(s): G47.00 - Insomnia, unspecified Category: Medical Qualifiers: Insomnia type: unspecified Qualified Code(s): G47.00 - Insomnia, unspecified Plan: Sleep hygiene reinforced Continue Zolpidem 10 mg once a day at bedtime as needed and Trazodone 50 mg Q HS PRN (11) Anxiety: Code(s): F41.9 - Anxiety disorder, unspecified Category: Medical Plan: Continue Clonazepam 0.5 mg 1 tablet twice a day as needed and Hydroxyzine 10 mg 1 tablet twice a day as needed (12) Depression: Code(s): F32.9 - Major depressive disorder, single episode, unspecified Category: Medical Qualifiers: Depression Type: major depressive disorder Major depression recurrence: recurrent Active/Remission status: currently active Major depression episode severity: unspecified Qualified Code(s): F33.9 - Major depressive disorder, recurrent, unspecified Plan: Follow-up with Psychiatry as scheduled (13) Obesity (BMI 30-39.9): Code(s): E66.9 - Obesity, unspecified Category: Medical Plan: Reinforced diet; exercise and weight are unrealistic given patient's multiple comorbidities Plan Follow up in 3 months Orders: Orders Comprehensive [place]. Panel Fast 3 Months E78.00 - Pure hypercholesterolemia, unspecified Complete Blood Count Auto Diff 3 Months D64.9 - Anemia, unspecified Lipid Panel 3 Months E78.00 - Pure hypercholesterolemia, unspecified Hemoglobin A1c 3 Months E11.9 - Type 2 diabetes mellitus without complications TSH reflex Free T4 3 Months E78.00 - Pure hypercholesterolemia, unspecified UA CC w/rflx Micro + Cult 3 Months R30.0 - Dysuria Vitamin D 25-OH Total 3 Months E55.9 - Vitamin D deficiency, unspecified
== END 2024-09-03 15:53 | disposition home or self-care (01) ==
PROVIDERS: PCP Internal Medicine; Visit Provider Internal Medicine
DX: E78.5 Hyperlipidemia, unspecified (principal); L93.0 Discoid lupus erythematosus; R79.89 Other specified abnormal findings of blood chemistry; F33.9 Major depressive disorder, recurrent, unspecified; J45.30 Mild persistent asthma, uncomplicated; G43.909 Migraine, unspecified, not intractable, without status migrainosus; M79.7 Fibromyalgia; M51.360 Other intervertebral disc degeneration, lumbar region with discogenic back pain only; K21.9 Gastro-esophageal reflux disease without esophagitis; E55.9 Vitamin D deficiency, unspecified; G47.00 Insomnia, unspecified; F41.9 Anxiety disorder, unspecified

== ENCOUNTER → 2024-09-03 14:27 | Outpatient (BNVA) | payer OTHER, SELFPAY | PROVIDERS: PCP Internal Medicine; Visit Provider Internal Medicine | DX: E78.5 Hyperlipidemia, unspecified (principal); L93.0 Discoid lupus erythematosus; R79.89 Other specified abnormal findings of blood chemistry; J45.30 Mild persistent asthma, uncomplicated; G43.909 Migraine, unspecified, not intractable, without status migrainosus; M79.7 Fibromyalgia; M51.360 Other intervertebral disc degeneration, lumbar region with discogenic back pain only; K21.9 Gastro-esophageal reflux disease without esophagitis; G47.00 Insomnia, unspecified; F41.9 Anxiety disorder, unspecified; E55.9 Vitamin D deficiency, unspecified; F33.9 Major depressive disorder, recurrent, unspecified; E66.9 Obesity, unspecified | CPT/HCPCS: 96127; 99212 ==

== ENCOUNTER 2024-12-10 09:24 | Inpatient (IN) | payer OTHER, SELFPAY ==
[2024-12-10] VITALS (12 sets, daily range): BP systolic 109–161; BP diastolic 50–75; PULSE 67–97; RESP 14–25; TEMP 36.2–37.1; O2SAT 88–96; BMI 32.7; BMI 35.9
--- NOTE | 2024-12-10 | ECG_ITS ---
Test Reason : CP Blood Pressure : */* mmHG Vent. Rate : 75 BPM Atrial Rate : 75 BPM P-R Int : 142 ms QRS Dur : 80 ms QT Int : 416 ms P-R-T Axes : 66 2 36 degrees QTcB Int : 464 ms Normal sinus rhythm with sinus arrhythmia Normal ECG When compared with ECG of 03-Jun-2022 11:19, No significant changes seen Referred By: Kyler Alfonso Electronically Signed By: ZO TAO
--- NOTE | ~2024-12-10 | CT_ITS ---
EXAMINATION: CT ANGIOGRAM CHEST CLINICAL INFORMATION: Hypoxia COMPARISON: April 23, 2012 is not available on PACS. TECHNIQUE: Multiple axial images were obtained through the chest after the administration of 100 mL of Omnipaque 350 intravenous contrast. Extensive vascular post-processing including two-dimensional and three-dimensional reformatted images were created and reviewed on an independent workstation. SmartPrep technique. DLP: [address] examination was performed using dose optimization techniques as appropriate, variously including the following: *Automated exposure control *Adjustment of mA and/or kV according to patient size (this includes techniques or standardized protocols for targeted exams where dose is matched to indication/reason for exam; i.e. extremities or head) *Use of iterative reconstruction technique FINDINGS: Inadequate/nondiagnostic SmartPrep technique. No aneurysm or dissection, thoracic aorta. Bilateral multifocal pulmonary groundglass and mosaic pattern. Linear attenuation abnormalities in the lung bases and right middle lung lobe. No pleural effusion. No pneumothorax. No bronchiectasis. No honeycombing. Respiratory airways is grossly patent. Nonspecific prominent mediastinal lymph nodes. No pericardial effusion. 1 mm calcified pulmonary nodule right upper lung lobe likely small granuloma. Multilevel thoracic spondylosis. No acute fracture or listhesis, axial skeleton. No acute fracture in the sternum. The ribs are intact. The scapula is intact bilaterally. Patient's large body habitus. CT/CT angio chest PE protocol IMPRESSION: Nondiagnostic SmartPrep technique. No aneurysm or dissection. Concerning multifocal pneumonia versus small airway disease. Fleischner guidelines were followed. Electronically signed by: Matthew Kent MD 12/10/2024 01:38 PM EDT
--- NOTE | ~2024-12-10 | XR_ITS ---
EXAMINATION: XR CHEST 2 VIEWS HISTORY: sob COMPARISON: Stevie is made with the prior examination dated 06/03/2022. FINDINGS: PA and lateral views of the chest are submitted. The lungs are expanded and clear. There is no pleural effusion, pneumothorax, or pulmonary vascular congestion. The heart is normal in size. There is degenerative disc disease. Again seen is hypertrophy of the anterior end of the left 1st rib. XR/XR chest 2V IMPRESSION: No acute cardiopulmonary abnormality. Electronically signed by: Jesus Allen MD 12/10/2024 10:25 AM EDT
[2024-12-10 09:44] LABS: MANUAL DIFF FLAG NO
[2024-12-10 09:47] LABS: Basophils Absolute Auto 0.1 X10*3/uL (0.0-0.2); Basophils Percent Auto 0.6 % (0-2); Eosinophils Absolute Auto 0.2 X10*3/uL (0.0-0.4); Eosinophils Percent Auto 2.2 % (0-4); Hematocrit 48.2 % (37.0-47.0); Hemoglobin 16.2 g/dl (12.0-16.0); Imm Gran Abs Auto 0.03 X10*3/uL (0.00-0.03); Imm Gran Pct Auto 0.3 % (0.0-0.4); Lymphocytes Absolute Auto 2.9 X10*3/uL (1.2-4.9); Mean Corpuscular HGB Conc 33.6 g/dl (31.0-35.0); Mean Corpuscular Hemoglobin 29.8 pg (27.0-33.0); Mean Corpuscular Volume 88.6 fL (80.0-98.0); Mean Platelet Volume 10.2 fL (9.4-12.3); Monocytes Absolute Auto 0.5 X10*3/uL (0.1-1.2); Monocytes Percent Auto 5.5 % (2-11); Neutrophils Percent Auto 61.4 % (45-73); Platelet Count 276 X10*3/uL (160-400); Red Blood Count 5.44 X10*6/uL (4.20-5.50); Red Cell Distribution Width 13.1 % (11.0-16.0); White Blood Count 9.8 X10*3/uL (4.8-10.8)
[2024-12-10 09:59] LABS: Alanine Aminotransferase 21 U/L (0-31); Albumin Level 4.1 g/dL (3.5-5.0); Alkaline Phosphatase 140 U/L (39-117); Anion Gap 12 (12-20); Aspartate Amino Transferase 26 U/L (5-31); Bilirubin Total 0.3 mg/dL (0.0-1.0); Blood Urea Nitrogen 10 mg/dL (9-16); Carbon Dioxide 26 mmol/L (22-29); Chloride 105 mmol/L (96-108); Creatinine Clr Calc Pharmacy 82.2; Estimated Glomerular Filt Rate > 60; Glucose Random 104 mg/dL (60-115); Potassium 3.9 mmol/L (3.3-5.1); Sodium 139 mmol/L (135-145); Total Protein 8.4 g/dL (6.5-8.0)
[2024-12-10 10:28] LABS: Influenza A PCR NEGATIVE (Negative); Influenza B PCR NEGATIVE (Negative); Resp Syncy Virus RNA Qual PCR NEGATIVE (Negative); SARS COV2 PCR INHOUSE NEGATIVE (Negative)
--- OUTSIDE RECORDS SUMMARY | 2024-12-10 10:39 | XMS_ITS | Clinical Summary ---
Author Organization [facility] Address [address] [place] [address] Care Team Providers Care Insurance Clerk Name Role Phone Unavailable Primary Care Provider Unavailabl e Source Comments PLEASE NOTE, if this patient is a minor, it may be UNLAWFUL to discuss sensitive information that is contained in these records (such as FAMILY PLANNING, MENTAL HEALTH or SUBSTANCE ABUSE) with the minor patient's parent or other person without the patient's specific authorization.[facility] Immunizations Immunization Administration Dates Next Due Moderna COVID-19 Vaccine, [...] Health Maintenance Due Date Last Done Comments Anxiety Screening 1962 Diabetes Screening 1962 HPV Screening 1962 Hepatitis C Screening 1962 Lipid Screening 1962 Pap + HPV 1962 Tobacco Screening 1962 HIV Screening 1977 Hypertension Screening (#1) 1980 Cervical Cancer Screening 1983 Pap Smear 1983 Breast Cancer Screening (Mammogram) 2002 CT Colonography 2007 Colonoscopy 2007 Colorectal Cancer Screening 2007 FIT/gFOBT 2007 Fecal DNA 2007 Flexible Sigmoidoscopy 2007 Imm-Zoster, Recombinant (1 of 2) 2012 Ses-DFFCH-15 ( season) 2024 021, 11/01/2020 Imm-Influenza (#1) 2024 06/13/2020, 0 09/22/2019, 06/30/2018, Additional history exists Alcohol and Drug Screen 08/04/2024 Depression Annual Screen 08/04/2024 Imm-DTaP/Tdap/Td (2 - Td or Tdap) 08/11/2025 016 Cervical Ablation/Cold-Knife Conization Discontinued Cervical Cryotherapy Discontinued Colposcopy Discontinued Endometrial Biopsy Discontinued Excision/Leep Discontinued HPV Genotyping Discontinued Vaginal Pap Discontinued Vulvoscopy Discontinued Insurance [email or web address] PL[employer] Member Subscriber Plan / Payer (Ef fective 2017-Present) Name:Medina Mcmahan Relation to Subscriber:Self Name:Medina Mcmahan Payer ID:[id number] Group ID:[id number] Type:Medicaid Address: [facility] [address] [place] [address]
[2024-12-10] MEDS: Magnesium Sulfate/H2O 2 GM/50 ML PIGGYBACK IV (11:06)
[2024-12-10] MEDS: Albuterol Sulfate 5 MG, Albuterol/Iprat 2.5/0.5MG 3 ML 3 ML INHALE ×2 (11:06→12:36)
[2024-12-10 11:30] LABS: Prothrombin Time 12.2 SEC (10.9-12.4)
[2024-12-10 11:33] LABS: D Dimer High Sensitivity < 150 NG/ML; Partial Thromboplastin Time 35.8 SEC (26.0-36.8)
[2024-12-10 11:43] LABS: Troponin-I High Sensitivity < 2.7 ng/L (<3.5-17.0)
[2024-12-10 11:46] LABS: B Type Natriuretic Peptide < 10 pg/mL (<100)
--- NOTE | 2024-12-10 11:51 | ED_ITS ---
HPI - General Adult General Chief complaint: Dyspnea Stated complaint: Chest Pain, Asthma- Trouble Breathing Time Seen by Provider: 12/10/24 09:53 History of Present Illness ED Provider: Daniel Anderson HPI narrative: 64 yold female with pmh of asthma, anxiety, lumbar degenerative disc disease, migaine, dyslipidemiea, presents to the ED for coughing, chest wheezing, bodyaches, and chills. patient states no relief with abluterol neblizer machine. Patient states recently travelled to [facility] by car 4 hours for sister . patietn denies any chest pain, shortness of breath, pleruisy, leg swelling or calf pain. patient states having symptoms since Friday. Patient traveled to [facility] last week Related Data Home Medications ?Medication ?Instructions ?Recorded ?Confirmed chloroquine phosphate 250 mg tablet 250 mg PO MOTUWETHFR 04/14/23 12/10/24 anifrolumab-fnia 300 mg/2 mL (150 300 mg IV Q4W 02/11/24 12/10/24 mg/mL) intravenous solution albuterol sulfate 90 mcg/actuation 2 puff inhalation QID PRN 12/10/24 12/10/24 aerosol inhaler Shortness Of Breath Or Wheezing milnacipran 50 mg tablet (Savella) 50 mg PO BID 12/10/24 12/10/24 omeprazole 20 mg capsule,delayed 20 mg PO DAILY@0630 12/10/24 12/10/24 release tacrolimus 0.03 % topical ointment 1 appl topical BID PRN Rash 12/10/24 12/10/24 Previous Rx's ?Medication ?Instructions ?Recorded SHOWER CHAIR #1 ea 07/17/22 WHEELCHAIR (standard lightweight) #1 ea 07/17/22 GRAB BAR #1 ea 08/14/22 ROLLATOR #1 ea 09/25/22 bupropion HCl 300 mg 24 hr tablet, 300 mg PO DAILY #90 tabs 01/22/23 extended release topiramate 100 mg tablet 100 mg PO BID #180 tabs 01/22/23 clonazepam 0.5 mg tablet 0.5 mg PO BID PRN anxiety 30 days 01/27/23 #60 tabs zolpidem 10 mg tablet 10 mg PO BEDTIME PRN insomnia 30 08/29/23 days #30 tabs folic acid 1 mg tablet 1 mg PO DAILY 90 days #90 tabs 11/19/23 cholecalciferol (vitamin D3) 50 50 mcg PO DAILY 90 days #90 caps 08/13/24 mcg (2,000 unit) capsule albuterol sulfate 2.5 mg/3 mL 2.5 mg (3 mL) inhalation TID PRN 08/20/24 (0.083 %) solution for nebulization shortness of breath or wheezing #225 mL tiotropium bromide 18 mcg capsule 1 cap inhalation DAILY #30 ea 09/03/24 with inhalation device (Spiriva with HandiHaler) docusate sodium 100 mg capsule 100 mg PO BID PRN for constipation 09/23/24 #180 caps varenicline tartrate 1 mg tablet 1 mg PO BID 28 days #56 tabs 11/08/24 aspirin 81 mg tablet,delayed 81 mg PO DAILY #90 tabs 11/25/24 release atorvastatin 10 mg tablet 10 mg PO BEDTIME 90 days #90 tabs 11/25/24 gabapentin 800 mg tablet 800 mg PO TID 30 days #90 tabs 11/25/24 oxycodone 10 mg tablet 10 mg PO Q6H PRN pain 28 days #112 12/06/24 tabs cefuroxime axetil 500 mg tablet 500 mg PO BID #10 tabs 12/12/24 doxycycline hyclate 100 mg tablet 100 mg PO BID #10 tabs 12/12/24 prednisone 10 mg tablet See Taper PO DIRECTED #30 tabs 12/12/24 Allergies Allergy/AdvReac Type Severity Reaction Status Date / Time hydroxychloroquine Allergy Intermediate SHORTNESS, Verified 12/10/24 09:31 [From PLAQUENIL] CHEST TIGHTNESS , RASH oseltamivir Allergy Unknown Unknown Verified 12/10/24 09:31 Review of Systems 2 Review of Systems: Wheezing coughing chest tightness Yes all other systems are reviewed and are negative [facility] Past Medical History Medical History RSV bronchitis Vitamin D deficiency Fibromyalgia Migraine Dental abscess Constipation Obesity (BMI 30-39.9) Depression Anxiety Insomnia GERD without esophagitis Elevated LFTs Dyslipidemia Discoid lupus Asthma Lumbar degenerative disc disease Surgical History History of colonoscopy History of laparoscopic appendectomy History of sinus surgery History of lumbar surgery S/P total abdominal hysterectomy H/O hand surgery History of foot surgery History of tubal ligation Family History Family History Father Heart disease Hypertension Stroke CVD (cardiovascular disease) Mother Hypertension Asthma Diabetes Sister Diabetes Hypertension Other Mental problem Social History Social History Household Members: Other Household Members Other:: Brother Housing: House Alcohol intake: never Patient Tobacco Use Status: Current everyday Tobacco user Tobacco use type: Cigarette Cigarettes Per Day: 2 Years Smoked: 40 e-Cigarette/Vaping Use: Never Used Second Hand Smoke Exposure: No service: No Current occupational status: disabled Cognitive needs: Yes (walker) Hearing needs: No Vision needs: Yes Physical Exam ED Vital Signs: Vital Signs - 24 hr 12/10/24 09:29 12/10/24 10:12 12/10/24 10:16 Temperature 97.2 F 97.9 F Pulse Rate 87 73 Respiratory Rate 22 H 25 H Blood Pressure 152/73 H 125/58 L Pulse Oximetry 92 93 89 L Oxygen Delivery Method Room Air Nasal Cannula Room Air Oxygen Flow Rate 2 12/10/24 11:09 12/10/24 12:29 12/10/24 12:38 Temperature Pulse Rate 67 71 Respiratory Rate 16 Blood Pressure Pulse Oximetry 88 L Oxygen Delivery Method Nasal Cannula Oxygen Flow Rate 2 BMI result Body Mass Index 32.7 Const General: cooperative, healthy appearing, comfortable, no acute distress, well developed, alert, awake and Physically active [facility] Head: Yes normal to inspection, Yes No palpable skull fracture present, Yes normocephalic and Yes atraumatic Eyes General: appearance normal, both eyes and all related structures Neck Neck: Yes normal visual inspection, Yes full ROM, Yes no lymphadenopathy, Yes no meningeal signs, Yes trachea midline, Yes supple, No anterior neck swelling and No tender Chest Chest palpation & inspection: normal inspection of the chest and normal palpation of entire chest wall Resp Effort & Inspection: normal respiratory effort and able to speak in complete sentences Auscultation: wheezes expiratory wheezes and throughout Cardio Jugular venous distension: no JVD Heart sounds: S1 normal heart sound present and S2 normal heart sound present GI Inspection: Yes normal to inspection Palpation (GI): Soft to palpation, not firm, nontender, no guarding and not rigid General: Yes no CVA tenderness Back/Spine/Pelvis Back: no CVA tenderness and No back tenderness Skin General skin exam: no rashes or lesions noted, elasticity normal and turgor normal Neuro General: moves all extremities, Normal light touch and pain sensation, no meningeal signs, no focal motor deficits, CN's II-XI intact bilaterally and normal sensation to monofilament Extrem Other: bilateral lower extremity negative for swelling, pitting edema or calf tenderness General: Yes normal to inspection, Yes full ROM and Yes capillary refill normal Psych Appearance: grossly normal, well kempt and not disheveled Medications Administered Discontinued Medications Generic Name Dose Route Start Last Admin Trade Name Freq PRN Reason Stop Dose Admin Acetaminophen 650 mg 12/10/24 15:06 12/11/24 09:38 Acetaminophen 325 Mg Tablet PO 650 mg Q6H PRN Administration Pain, Mild 1-3,fever,headache Albuterol/Ipratropium 3 ml 12/10/24 15:06 12/11/24 23:25 Albuterol/Iprat 2.5/0.5mg 3 Ml Ampul.Neb INHALE 3 ml RQ6H WHILE AWAKE PRN Administration shortness of breath/wheezing Aspirin 81 mg 12/11/24 09:00 12/12/24 08:06 Aspirin Enteric Coated 81 Mg Tablet. PO 81 mg DAILY THALIA Administration Atorvastatin Calcium 10 mg 12/10/24 21:00 12/11/24 21:52 Atorvastatin Calcium 10 Mg Tablet PO 10 mg BEDTIME THALIA Administration Bupropion HCl 300 mg 12/11/24 09:00 12/12/24 08:06 Bupropion Hcl Xl 300 Mg Tab.Er.24h PO 300 mg DAILY THALIA Administration Ceftriaxone Sodium 1 gm 12/10/24 14:23 12/10/24 15:22 Ceftriaxone Sodium 1 Gm Vial IVPUSH 12/10/24 14:24 1 gm ONCE ONE Administration Ceftriaxone Sodium 1 gm 12/11/24 14:00 12/11/24 13:49 Ceftriaxone Sodium 1 Gm Vial IVPUSH 1 gm Q24H THALIA Administration Clonazepam 0.5 mg 12/10/24 17:33 12/11/24 03:59 Clonazepam 0.5 Mg Tablet PO 0.5 mg BID PRN Administration anxiety Albuterol Sulfate 5 mg/ 0 mg 12/10/24 11:03 12/10/24 11:06 Albuterol/Ipratropium 3 ml INHALE 12/10/24 11:04 1 each ONCE ONE Administration Albuterol Sulfate 5 mg/ 0 mg 12/10/24 12:33 12/10/24 12:36 Albuterol/Ipratropium 3 ml INHALE 12/10/24 12:34 1 each ONCE ONE Administration Enoxaparin Sodium 40 mg 12/10/24 15:15 12/11/24 15:01 Enoxaparin Sodium 40 Mg/0.4 Ml Syringe SUBCUT 40 mg Q24H THALIA Administration Folic Acid 1 mg 12/11/24 09:00 12/12/24 08:06 Folic Acid 1 Mg Tablet PO 1 mg DAILY THALIA Administration Gabapentin 800 mg 12/10/24 21:00 12/12/24 08:06 Gabapentin 400 Mg Capsule PO 800 mg TID THALIA Administration Magnesium Sulfate 2 gm in 50 mls @ 25 mls/hr 12/10/24 10:42 12/10/24 11:30 Magnesium Sulfate/H2o IV 12/10/24 12:41 Infused ONCE ONE Infusion Azithromycin 500 mg/ Sodium 250 mls @ 125 mls/hr 12/10/24 14:23 12/10/24 17:30 Chloride IV 12/10/24 16:22 Infused ONCE ONE Infusion Sodium Chloride 2,433 mls @ 2,433 mls/hr 12/10/24 15:06 12/10/24 17:07 Ns 30 ml/kg infuse over 1 hr (2433 ml) 12/10/24 16:05 Infused IV Infusion .Q1H STA Doxycycline Hyclate 100 mg/ 250 mls @ 166.67 mls/hr 12/10/24 15:15 12/12/24 04:38 Sodium Chloride IV Infused Q12H THALIA Infusion Iohexol 100 ml 12/10/24 13:22 12/10/24 13:22 Iohexol 350 Mg/Ml 100 Ml Infus..Btl IV 12/10/24 13:23 100 ml ONCE ONE Administration Melatonin 6 mg 12/10/24 15:06 12/11/24 01:08 Melatonin 3 Mg Tablet PO 6 mg BEDTIME PRN Administration Insomnia Methylprednisolone Sodium Succinate 125 mg 12/10/24 10:42 12/10/24 11:03 Methylprednisolone Sod Succ 125 Mg Vial IVPUSH 12/10/24 10:43 125 mg ONCE ONE Administration Methylprednisolone Sodium Succinate 40 mg 12/10/24 23:00 12/12/24 10:59 Methylprednisolone Sod Succ 40 Mg/Ml Vial IVPUSH 40 mg Q12H THALIA Administration Patient Own 50 mg 12/10/24 21:00 12/12/24 08:06 Medication ( PO 50 mg Milnacipran [Savella BID THALIA Administration ] 50 Mg Tablet) Omeprazole 20 mg 12/11/24 06:30 12/12/24 05:56 Omeprazole 20 Mg Capsule. PO 20 mg DAILY@0630 THALIA Administration Oxycodone HCl 10 mg 12/10/24 17:35 12/12/24 00:25 Oxycodone Hcl Immed Release 5 Mg Tablet PO 10 mg Q6H PRN Administration Pain, Moderate(Pain Scale 4-6) Sodium Chloride 3 ml 12/10/24 16:00 12/12/24 08:08 0.9 % Sodium Chloride Flush 3 Ml Syringe IVFLUSH 3 ml QSHIFT THALIA Administration Topiramate 100 mg 12/10/24 21:00 12/12/24 08:06 Topiramate 100 Mg Tablet PO 100 mg BID THALIA Administration Vitamin D 50 mcg 12/11/24 09:00 12/12/24 08:06 Cholecalciferol (Vitamin D3) 25 Mcg Tablet PO 50 mcg DAILY THALIA Administration Zolpidem Tartrate 5 mg 12/11/24 00:55 12/11/24 01:08 Zolpidem Tartrate 5 Mg Tablet PO 12/11/24 00:56 5 mg ONCE ONE Administration Zolpidem Tartrate 5 mg 12/11/24 23:02 12/11/24 23:13 Zolpidem Tartrate 5 Mg Tablet PO 5 mg BEDTIME PRN Administration Insomnia Medical Decision Making Medical Decision Making MDM Narrative: 64-year-old female with URI symptoms presents to the ED as asthma exacerbation. Patient has profuse general expiratory wheezing. Patient will be given Solu- Medrol magnesium and albuterol inhaler. Chest x-ray negative for pneumonia initial EKG negative STEMI. Will add troponin BNP. Will add D-dimer due to patient recently travel from [facility] by car 8 hours total. 3:08pm patient's lactic acid positive 3.2. We will order septic fluid. Patient was hypoxic 88%. Chest CTA negative for PE but shows multifocal pneumonia. Antibiotics ordered. patient admitted for asthma exacerbation. accepted by HOspitalist Differential Diagnosis Differential Diagnoses: The differential diagnosis associated with the presentation includes (pneumonia, PE, asthma exacerbation) Admission/Observation Consideration of admission/observation: Escalation of care including admission/observation considered Consult Healthcare Provider Management of the patient was discussed with: Hospitalist (AUGUSTO Kat) Lab Data MDM Lab Attestation statement: I reviewed the patient's lab results. 12/10/24 09:38 12/10/24 09:38 Labs: Lab Results 12/10/24 12/10/24 12/10/24 Range/Units 09:38 11:10 14:39 WBC 9.8 (4.8-10.8) X10*3/uL RBC 5.44 (4.20-5.50) X10*6/uL Hgb 16.2 H (12.0-16.0) g/dl Hct 48.2 H (37.0-47.0) % MCV 88.6 (80.0-98.0) fL MCH 29.8 (27.0-33.0) pg MCHC 33.6 (31.0-35.0) g/dl RDW 13.1 (11.0-16.0) % Plt Count 276 (160-400) X10*3/uL MPV 10.2 (9.4-12.3) fL Immature Gran % (Auto) 0.3 (0.0-0.4) % Neut % (Auto) 61.4 (45-73) % Lymph % (Auto) 30.0 (20-40) % [place] % (Auto) 5.5 (2-11) % Eos % (Auto) 2.2 (0-4) % Baso % (Auto) 0.6 (0-2) % Lymph # (Auto) 2.9 (1.2-4.9) X10*3/uL [place] # (Auto) 0.5 (0.1-1.2) X10*3/uL Eos # (Auto) 0.2 (0.0-0.4) X10*3/uL Baso # (Auto) 0.1 (0.0-0.2) X10*3/uL Abs Immat Gran (auto) 0.03 (0.00-0.03) X10*3/uL Absolute Neuts (auto) 6.0 (2.0-8.3) x10*3/uL Absolute Nucleated RBC 0.000 (0.0-0.012) X10*3/uL Nucleated RBC % (auto) 0.0 (0.0-0.2) /100WBC PT 12.2 (10.9-12.4) SEC INR 1.0 (0.9-1.1) APTT 35.8 (26.0-36.8) SEC D-Dimer High Sensitivty < 150 NG/ML Sodium 139 (135-145) mmol/L Potassium 3.9 (3.3-5.1) mmol/L Chloride 105 (96-108) mmol/L Carbon Dioxide 26 (22-29) mmol/L Anion Gap 12 (12-20) BUN 10 (9-16) mg/dL Creatinine 0.70 (0.5-1.4) mg/dL Estim Creat Clear Calc 82.2 Estimated GFR > 60 Random Glucose 104 (60-115) mg/dL Lactic Acid 3.2 H* (0.5-2.0) mmol/L Calcium 10.0 (8.4-10.2) mg/dL Total Bilirubin 0.3 (0.0-1.0) mg/dL AST 26 (5-31) U/L ALT 21 (0-31) U/L Alkaline Phosphatase 140 H (39-117) U/L Troponin I High Sens < 2.7 (<3.5-17.0) ng/L B-Natriuretic Peptide < 10 (<100) pg/mL Total Protein 8.4 H (6.5-8.0) g/dL Albumin 4.1 (3.5-5.0) g/dL Influenza Type A (PCR) NEGATIVE (Negative) Influenza Type B (PCR) NEGATIVE (Negative) RSV RNA Qual (PCR) NEGATIVE (Negative) SARS-CoV-2 RNA (RT-PCR) NEGATIVE (Negative) Independent Interpretation I performed an independent interpretation of an: Plain X-Ray and CT Scan Radiology Impression Discussion of test interpretation with radiology: I have reviewed the radiologist's reading. Independent Historian Clinical information obtained from an independent historian. History obtained from or confirmed by: Other (patient) Prescription Management I considered prescription management with: Antibiotic Critical Care Time Critical Care Time Critical Care Time: Yes Total Critical Care Time: 60 Attestation: Asthma exacerbation. Patient hpyoxic. 2 liters oxygen 88%. magnesium, albuterol, solumedrol ordered. Chest CT shows Pneumonia. Antiiotics ordered. Admitted Discharge Plan Discharge Clinical Impression: COPD (chronic obstructive pulmonary disease) Patient Disposition: Admitted As Inpatient Interventions: Admission Worksheet (ED) Last Done: 12/10/24 20:37 Discharge Date/Time: 12/10/24 21:12
--- NOTE | 2024-12-10 12:56 | PC.NURSE ---
Pt to CT Scan at this time.
[2024-12-10] MEDS: iohexoL 350 MG/ML 100 ML INFUS..BTL IV (13:22)
--- NOTE | 2024-12-10 14:54 | PM.IMHP ---
History of Present Illness Date of Service: 12/10/24 Attending physician on admission: [facility] Chief Complaint: Shortness of breath, cough This is a 64-year-old female with history of lupus, asthma/COPD, active smoking who presents to the emergency department with shortness of breath. She reports one-week history of increasing shortness a breath associated with cough productive of yellow phlegm. She also reports fever a few days ago which has now resolved. She denies any recent sick contacts but she did travel last week due to a family. In the emergency department she was afebrile, lab work with no leukocytosis. She was noted to be tachypneic on arrival and her oxygen saturation dropped as low as 88% on room air. She was treated with IV steroids, IV magnesium, IV antibiotics and multiple breathing treatments. CTA showed concern for multifocal pneumonia. The decision was made to admit her to the hospital for further management. Review of Systems Review of Systems: Yes all other systems are reviewed and are negative Constitutional: Constitutional: Denies chills and Reports fever(s) Cardiovascular: Cardiovascular: Denies chest pain, Denies palpitations and Reports dyspnea Respiratory: Respiratory: Reports cough and Reports dyspnea Endocrine: Endocrine: Denies palpitations [facility] Medical History RSV bronchitis Vitamin D deficiency Fibromyalgia Migraine Dental abscess Constipation Obesity (BMI 30-39.9) Depression Anxiety Insomnia GERD without esophagitis Elevated LFTs Dyslipidemia Discoid lupus Asthma Lumbar degenerative disc disease Family History Father Heart disease Hypertension Stroke CVD (cardiovascular disease) Mother Hypertension Asthma Diabetes Sister Diabetes Hypertension Other Mental problem Surgical History History of colonoscopy History of laparoscopic appendectomy History of sinus surgery History of lumbar surgery S/P total abdominal hysterectomy H/O hand surgery History of foot surgery History of tubal ligation Social History Housing: House Alcohol intake: never Patient Tobacco Use Status: Former Tobacco user Tobacco use type: Cigarette Cigarettes Per Day: 4 e-Cigarette/Vaping Use: Never Used Second Hand Smoke Exposure: Yes Advance Directives: No Advance Directives Information Provided: Yes service: No Current occupational status: disabled Cognitive needs: Yes (walker) Hearing needs: No Vision needs: Yes Meds Allergies Allergy/AdvReac Type Severity Reaction Status Date / Time hydroxychloroquine Allergy Intermediate SHORTNESS, Verified 12/10/24 09:31 [From PLAQUENIL] CHEST TIGHTNESS , RASH oseltamivir Allergy Unknown Unknown Verified 12/10/24 09:31 Active Medications: Current Medications Azithromycin 500 mg/ Sodium (Chloride) 250 mls @ 125 mls/hr IV ONCE ONE Stop: 12/10/24 16:22 Home Medications ?Medication ?Instructions ?Recorded ?Confirmed ?Last Taken ?Type chloroquine phosphate 250 mg tablet 250 mg PO MOTUWETHFR 04/14/23 12/10/24 12/10/24 History anifrolumab-fnia 300 mg/2 mL (150 300 mg IV Q4W 02/11/24 12/10/24 4 Weeks Ago History mg/mL) intravenous solution ~11/12/24 albuterol sulfate 90 mcg/actuation 2 puff inhalation QID PRN 12/10/24 12/10/24 Unknown History aerosol inhaler Shortness Of Breath Or Wheezing milnacipran 50 mg tablet (Savella) 50 mg PO BID 12/10/24 12/10/24 12/10/24 History omeprazole 20 mg capsule,delayed 20 mg PO DAILY@0630 12/10/24 12/10/24 12/10/24 History release tacrolimus 0.03 % topical ointment 1 appl topical BID PRN Rash 12/10/24 12/10/24 Unknown History Physical Exam Vital Signs and Narrative: Vital Signs: Last Vital Signs Temp 97.9 F 12/10/24 10:12 Pulse 71 12/10/24 12:38 Resp 16 12/10/24 12:38 BP 125/58 L 12/10/24 10:12 Pulse Ox 88 L 12/10/24 12:29 O2 Del Method Nasal Cannula 12/10/24 12:29 O2 Flow Rate 2 12/10/24 12:29 BMI result Body Mass Index 32.7 Const: General: cooperative, comfortable, no acute distress, well developed, alert and awake Nutritional Appearance: overweight Orientation/consciousness: patient oriented x3 Resp: Other: b/l rhonchi, scattered wheeze Effort & Inspection: normal respiratory effort, able to speak in complete sentences, no respiratory distress and no use of accessory muscles Cardio: Rate: regular rate GI: Inspection: No distended Palpation (GI): Soft to palpation and nontender Neuro: General: patient oriented x3, No moves all extremities and CN's II-XI intact bilaterally Extrem: General: Yes no pedal edema Results Labs 12/10/24 09:38 12/10/24 09:38 Labs: Laboratory Results - last 24 hr 12/10/24 12/10/24 09:38 11:10 MCV 88.6 MCH 29.8 MCHC 33.6 RDW 13.1 Plt Count 276 MPV 10.2 Immature Gran % (Auto) 0.3 Neut % (Auto) 61.4 Lymph % (Auto) 30.0 Lares % (Auto) 5.5 Eos % (Auto) 2.2 Baso % (Auto) 0.6 Lymph # (Auto) 2.9 Lares # (Auto) 0.5 Eos # (Auto) 0.2 Baso # (Auto) 0.1 Abs Immat Gran (auto) 0.03 Absolute Neuts (auto) 6.0 Absolute Nucleated RBC 0.000 Nucleated RBC % (auto) 0.0 PT 12.2 INR 1.0 APTT 35.8 D-Dimer High Sensitivty < 150 Anion Gap 12 Estim Creat Clear Calc 82.2 Estimated GFR > 60 Random Glucose 104 Calcium 10.0 Total Bilirubin 0.3 AST 26 ALT 21 Alkaline Phosphatase 140 H B-Natriuretic Peptide < 10 Total Protein 8.4 H Albumin 4.1 Influenza Type A (PCR) NEGATIVE Influenza Type B (PCR) NEGATIVE RSV RNA Qual (PCR) NEGATIVE SARS-CoV-2 RNA (RT-PCR) NEGATIVE Imaging Radiologist's Impressions: Impressions Chest X-Ray 12/10/24 09:33 IMPRESSION: No acute cardiopulmonary abnormality. Electronically signed by: Jesus Allen MD 12/10/2024 10:25 AM EDT RP Chest CTA 12/10/24 12:22 IMPRESSION: Nondiagnostic SmartPrep technique. No aneurysm or dissection. Concerning multifocal pneumonia versus small airway disease. Fleischner guidelines were followed. Electronically signed by: Matthew Kent MD 12/10/2024 01:38 PM EDT RP Assessment and Plan (1) Acute hypoxic respiratory failure: Status: Acute Plan This is a 64-year-old female with history of asthma/COPD,lupus,hyperlipidemia,active tobacco use, hyperlipidemia who presents to the emergency department with one-week history of shortness of breath and cough focal pneumonia Acute respiratory failure with hypoxia Due to COPD exacerbation and multifocal pneumonia Wean supplemental oxygen as tolerated Multifocal pneumonia No sepsis Ceftriaxone, doxycycline Flu, RSV, COVID-19 negative Follow blood cultures Acute asthma/COPD exacerbation In the setting above Continue systemic steroids, breathing treatments Hold Spiriva Acute lactic acidosis Does not meet SIRS criteria, likely type 2 due to multiple breathing treatments HLD Continue statin Mood disorder Continue baseline medications Savella is non formulary, will likely need to be brought from home History of lupus Hold chloroquine for acute infection Chronic pain Continue gabapentin, baseline dose of oxycodone DVT prophylaxis-Lovenox Code status-full code Patient requires 2 midnight stay in the hospital for management of asthma/COPD and multifocal requiring IV antibiotics, systemic steroids and close monitoring of respiratory status due to acute hypoxia Quality Stroke Does the patient have a stroke diagnosis?: No VTE Prior VTE?: No VTE Risk Level:: Medical - moderate - high VTE Device Contraindication: N/A - Device Ordered VTE Drug Contraindication: N/A - Med Ordered
[2024-12-10 15:07] LABS: Lactic Acid 3.2 mmol/L (0.5-2.0)
[2024-12-10] MEDS: cefTRIAXone sodium 1 GM VIAL IVPUSH (15:22)
[2024-12-10] MEDS: Doxycycline Hyclate 100 MG in 0.9 % Sodium Chloride 250 ML 166.67 MG IV (15:23)
[2024-12-10] MEDS: Azithromycin 500 MG in 0.9 % Sodium Chloride 250 ML 125 MG IV (15:24)
[2024-12-10] MEDS: Enoxaparin Sodium 40 MG/0.4 ML SYRINGE SUBCUT (15:24)
[2024-12-10] MEDS: SODIUM CHLORIDE 2433 ML IV (15:25)
[2024-12-10 16:42] LABS: Reflex Lactate? Lactic Acid Added
[2024-12-10 17:24] LABS: Appearance Urine Clear; Color Urine Yellow; Glucose Urine UA Negative (Negative); Leukocyte Esterase Urine Negative (Negative); Nitrite Urine Negative (Negative); PH 5.5 (5.0-9.0); Specific Gravity - Urine >= 1.030 (1.005-1.025); Urine Blood Negative (Negative); Urine Ketones Negative (Negative); Urine Protein Negative (Neg-Trace)
--- NOTE | 2024-12-10 17:30 | PHA.MEDREC ---
Addendum entered by Indio Rashid 12/10/24 18:09: reviewed Original Note: Pharmacy Consult ? Medication Reconciliation Pharmacy has completed the medication reconciliation. Spoke with patient utilizing food products tester and she was able to confirm her medications. She confirmed her Saphnelo injection she gets every 4 weeks from [facility] and confirmed she was due to get it yesterday but was unable to get it yesterday. She confirmed her Chloroquine 250mg tab and confirmed she takes it on and skips [employer] and stated she took it today.
[2024-12-10 17:42] LABS: ~Lactic Acid-LAB USE ONLY 4.6 mmol/L (0.5-2.0)
[2024-12-10 19:06] LABS: Reflex Lactate? 2 Y
--- NOTE | 2024-12-10 19:14 | PC.NURSE ---
This insurance underwriter assumed care of this Pt at 1900. Pt A&Ox3. Pharmacy at bedside picking up home med.
--- NOTE | 2024-12-10 19:44 | MHC.EDTECH ---
This pct assumed care of Patient at 1900 ,vitals taken ,Patient belongings list done ,lactic acid drawn and sent to lab .no apparent distress noted Plan of care continue .Call mobley within Pt reach .
[2024-12-10 20:07] LABS: ~Lactic Acid-LAB USE ONLY 3.9 mmol/L (0.5-2.0)
[2024-12-10] MEDS: Atorvastatin Calcium 10 MG TABLET PO (21:03)
[2024-12-10] MEDS: Topiramate 100 MG TABLET PO (21:03)
[2024-12-10] MEDS: MILNACIPRAN 50 MG 50 EACH PO (21:04)
[2024-12-10] MEDS: Gabapentin 400 MG CAPSULE 800 MG PO (22:55)
[2024-12-10] MEDS: methylPREDNISolone Sod Succ 40 MG/ML VIAL IVPUSH (22:55)
[2024-12-10] MEDS: 0.9 % Sodium Chloride Flush 3 ML SYRINGE IVFLUSH (22:56)
[2024-12-10] MEDS: Albuterol/Iprat 2.5/0.5MG 3 ML AMPUL.NEB INHALE (23:04)
[2024-12-11] MEDS: Melatonin 3 MG TABLET 6 MG PO (01:08)
[2024-12-11] MEDS: Zolpidem Tartrate 5 MG TABLET PO ×2 (01:08→23:13)
[2024-12-11] MEDS: Doxycycline Hyclate 100 MG in 0.9 % Sodium Chloride 250 ML 166.67 MG IV ×2 (03:14→15:01)
[2024-12-11 03:16] VITALS: BP 119/58; PULSE 83; RESP 18; TEMP 36.6; O2SAT 92
[2024-12-11] MEDS: clonazePAM 0.5 MG TABLET PO (03:59)
[2024-12-11] MEDS: oxyCODONE HCl Immed Release 5 MG TABLET 10 MG PO ×2 (05:15→13:49)
[2024-12-11] MEDS: Omeprazole 20 MG CAPSULE.DR PO (05:16)
[2024-12-11 06:58] VITALS: BP 150/72; PULSE 71; RESP 17; TEMP 36.6; O2SAT 96
[2024-12-11] MEDS: MILNACIPRAN 50 MG 50 EACH PO ×2 (07:42→21:52)
[2024-12-11] MEDS: Gabapentin 400 MG CAPSULE 800 MG PO ×3 (07:43→21:52)
[2024-12-11] MEDS: Cholecalciferol (Vitamin D3) 25 MCG TABLET 50 MCG PO (07:43)
[2024-12-11] MEDS: 0.9 % Sodium Chloride Flush 3 ML SYRINGE IVFLUSH ×3 (07:43→21:53)
[2024-12-11] MEDS: Aspirin Enteric Coated 81 MG TABLET.DR PO (07:43)
[2024-12-11] MEDS: buPROPion HCl XL 300 MG TAB.ER.24H PO (07:43)
[2024-12-11] MEDS: Topiramate 100 MG TABLET PO ×2 (07:43→21:52)
[2024-12-11] MEDS: Folic Acid 1 MG TABLET PO (07:43)
--- NOTE | 2024-12-11 08:48 | P.PNIM_ITS ---
Subjective Subjective Date of Service: 12/11/24 Physical Exam 2 Vital Signs: Vital Signs: Last Vital Signs Temp 97.9 F 12/11/24 06:58 Pulse 71 12/11/24 06:58 Resp 17 12/11/24 06:58 BP 150/72 H 12/11/24 06:58 Pulse Ox 96 12/11/24 06:58 O2 Del Method Nasal Cannula 12/11/24 06:58 O2 Flow Rate 2 12/11/24 06:58 BMI result Body Mass Index 35.9 Objective Data Active Medications Acetaminophen (Acetaminophen 325 Mg Tablet) 650 mg PO Q6H PRN PRN Reason: Pain, Mild 1-3,fever,headache Albuterol/Ipratropium (Albuterol/Iprat 2.5/0.5mg 3 Ml Ampul.Neb) 3 ml INHALE RQ6H WHILE AWAKE PRN PRN Reason: shortness of breath/wheezing Last Admin: 12/10/24 23:04 Dose: 3 ml Documented By: JUAN Aspirin (Aspirin Enteric Coated 81 Mg Tablet.Dr) 81 mg PO DAILY [facility] Last Admin: 12/11/24 07:43 Dose: 81 mg Documented By: DIANA Atorvastatin Calcium (Atorvastatin Calcium 10 Mg Tablet) 10 mg PO BEDTIME [facility] Last Admin: 12/10/24 21:03 Dose: 10 mg Documented By: SERRANX Benzonatate (Benzonatate 100 Mg Capsule) 100 mg PO TID PRN PRN Reason: Cough Bupropion HCl (Bupropion Hcl Xl 300 Mg Tab.Er.24h) 300 mg PO DAILY [facility] Last Admin: 12/11/24 07:43 Dose: 300 mg Documented By: DIANA Calcium Carbonate (Calcium Carbonate 750 Mg Tab.Chew) 750 mg PO Q4H PRN PRN Reason: Heartburn Ceftriaxone Sodium (Ceftriaxone Sodium 1 Gm Vial) 1 gm IVPUSH Q24H [facility] Clonazepam (Clonazepam 0.5 Mg Tablet) 0.5 mg PO BID PRN PRN Reason: anxiety Last Admin: 12/11/24 03:59 Dose: 0.5 mg Documented By: RANCHO Docusate Sodium (Docusate Sodium 100 Mg Capsule) 100 mg PO BID PRN PRN Reason: for constipation Enoxaparin Sodium (Enoxaparin Sodium 40 Mg/0.4 Ml Syringe) 40 mg SUBCUT Q24H [facility] Last Admin: 12/10/24 15:24 Dose: 40 mg Documented By: SANCHEZ Folic Acid (Folic Acid 1 Mg Tablet) 1 mg PO DAILY [facility] Last Admin: 12/11/24 07:43 Dose: 1 mg Documented By: DIANA Gabapentin (Gabapentin 400 Mg Capsule) 800 mg PO TID [facility] Last Admin: 12/11/24 07:43 Dose: 800 mg Documented By: DIANA Doxycycline Hyclate 100 mg/ (Sodium Chloride) 250 mls @ 166.67 mls/hr IV Q12H [facility] Last Infusion: 12/11/24 04:59 Dose: Infused Documented By: RANCHO Magnesium Hydroxide (Milk Of Magnesia 30 Ml Oral.Susp) 30 ml PO DAILY PRN PRN Reason: Constipation Melatonin (Melatonin 3 Mg Tablet) 6 mg PO BEDTIME PRN PRN Reason: Insomnia Last Admin: 12/11/24 01:08 Dose: 6 mg Documented By: RANCHO Methylprednisolone Sodium Succinate (Methylprednisolone Sod Succ 40 Mg/Ml Vial) 40 mg IVPUSH Q12H [facility] Last Admin: 12/10/24 22:55 Dose: 40 mg Documented By: RANCHO Nicotine Polacrilex (Nicotine Polacrilex 2 Mg Gum) 2 mg BUCCAL Q2H PRN PRN Reason: Nicotine Cravings Patient Own Medication ( Milnacipran [Savella ] 50 Mg Tablet) 50 mg PO BID [facility] Last Admin: 12/11/24 07:42 Dose: 50 mg Documented By: DIANA Omeprazole (Omeprazole 20 Mg Juanpablo.) 20 mg PO DAILY@0630 [facility] Last Admin: 12/11/24 05:16 Dose: 20 mg Documented By: RANCHO Oxycodone HCl (Oxycodone Hcl Immed Release 5 Mg Tablet) 10 mg PO Q6H PRN PRN Reason: Pain, Moderate(Pain Scale 4-6) Last Admin: 12/11/24 05:15 Dose: 10 mg Documented By: RANCHO Sodium Chloride (0.9 % Sodium Chloride Flush 3 Ml Syringe) 3 ml IVFLUSH QSHIFT [facility] Last Admin: 12/11/24 07:43 Dose: 3 ml Documented By: DIANA Topiramate (Topiramate 100 Mg Tablet) 100 mg PO BID [facility] Last Admin: 12/11/24 07:43 Dose: 100 mg Documented By: DIANA Vitamin D (Cholecalciferol (Vitamin D3) 25 Mcg Tablet) 50 mcg PO DAILY [facility] Last Admin: 12/11/24 07:43 Dose: 50 mcg Documented By: DIANA Labs 12/10/24 09:38 12/10/24 09:38 Labs: Laboratory Results - last 24 hr 12/10/24 12/10/24 12/10/24 09:38 11:10 14:39 MCV 88.6 MCH 29.8 MCHC 33.6 RDW 13.1 Plt Count 276 MPV 10.2 Immature Gran % (Auto) 0.3 Neut % (Auto) 61.4 Lymph % (Auto) 30.0 [place] % (Auto) 5.5 Eos % (Auto) 2.2 Baso % (Auto) 0.6 Lymph # (Auto) 2.9 [place] # (Auto) 0.5 Eos # (Auto) 0.2 Baso # (Auto) 0.1 Abs Immat Gran (auto) 0.03 Absolute Neuts (auto) 6.0 Absolute Nucleated RBC 0.000 Nucleated RBC % (auto) 0.0 PT 12.2 INR 1.0 APTT 35.8 D-Dimer High Sensitivty < 150 Anion Gap 12 Estim Creat Clear Calc 82.2 Estimated GFR > 60 Random Glucose 104 Lactic Acid 3.2 H* Lactic Acid F/U @ 2Hr Lactic Acid F/U @ 4Hr Calcium 10.0 Total Bilirubin 0.3 AST 26 ALT 21 Alkaline Phosphatase 140 H B-Natriuretic Peptide < 10 Total Protein 8.4 H Albumin 4.1 Urine Color Urine Appearance Urine pH Ur Specific [place] Urine Protein Urine Glucose (UA) Urine Ketones Urine Blood Urine Nitrite Ur Leukocyte Esterase Influenza Type A (PCR) NEGATIVE Influenza Type B (PCR) NEGATIVE RSV RNA Qual (PCR) NEGATIVE SARS-CoV-2 RNA (RT-PCR) NEGATIVE 12/10/24 12/10/24 12/10/24 16:39 17:04 19:41 MCV MCH MCHC RDW Plt Count MPV Immature Gran % (Auto) Neut % (Auto) Lymph % (Auto) [place] % (Auto) Eos % (Auto) Baso % (Auto) Lymph # (Auto) [place] # (Auto) Eos # (Auto) Baso # (Auto) Abs Immat Gran (auto) Absolute Neuts (auto) Absolute Nucleated RBC Nucleated RBC % (auto) PT INR APTT D-Dimer High Sensitivty Anion Gap Estim Creat Clear Calc Estimated GFR Random Glucose Lactic Acid Lactic Acid F/U @ 2Hr 4.6 H* Lactic Acid F/U @ 4Hr 3.9 H* Calcium Total Bilirubin AST ALT Alkaline Phosphatase B-Natriuretic Peptide Total Protein Albumin Urine Color Yellow Urine Appearance Clear Urine pH 5.5 Ur Specific [place] >= 1.030 H Urine Protein Negative Urine Glucose (UA) Negative Urine Ketones Negative Urine Blood Negative Urine Nitrite Negative Ur Leukocyte Esterase Negative Influenza Type A (PCR) Influenza Type B (PCR) RSV RNA Qual (PCR) SARS-CoV-2 RNA (RT-PCR) Assessment and Plan (1) Obesity (BMI 30-39.9): Status: Acute Plan 64-year-old female with history of asthma/COPD, lupus, hyperlipidemia, active tobacco use, hyperlipidemia who presents to the emergency department with one- week history of shortness of breath and cough focal pneumonia Acute respiratory failure with hypoxia secondary to Multifocal Pneumonia and COPD exacerbation No sepsis Ceftriaxone, doxycycline Flu, RSV, COVID-19 negative Follow blood cultures Wean supplemental oxygen as tolerated Continue systemic steroids, breathing treatments Hold Spiriva Acute lactic acidosis Does not meet SIRS criteria, likely type 2 due to multiple breathing treatments HLD Continue statin Mood disorder Continue baseline medications Savella is non formulary, will likely need to be brought from home History of lupus Hold chloroquine for acute infection Chronic pain Continue gabapentin, baseline dose of oxycodone Obesity class 2. BMI 35.9 Weight management DVT prophylaxis-Lovenox Code status-full code Quality Stroke Does the patient have a stroke diagnosis?: No VTE Prior VTE?: No VTE Risk Level:: Medical - moderate - high VTE Device Contraindication: N/A - Device Ordered VTE Drug Contraindication: N/A - Med Ordered
[2024-12-11] MEDS: Acetaminophen 325 MG TABLET 650 MG PO (09:38)
[2024-12-11] MEDS: methylPREDNISolone Sod Succ 40 MG/ML VIAL IVPUSH ×2 (10:11→21:53)
[2024-12-11 10:14] VITALS: PULSE 78; O2SAT 93
[2024-12-11] MEDS: cefTRIAXone sodium 1 GM VIAL IVPUSH (13:49)
[2024-12-11] MEDS: Enoxaparin Sodium 40 MG/0.4 ML SYRINGE SUBCUT (15:01)
[2024-12-11 15:35] VITALS: BP 139/63; PULSE 64; RESP 18; TEMP 36.4; O2SAT 93
--- NOTE | 2024-12-11 15:54 | MHC.CM.PN ---
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
[2024-12-11 20:00] VITALS: BP 142/67; PULSE 70; RESP 18; TEMP 36.6; O2SAT 94
[2024-12-11] MEDS: Atorvastatin Calcium 10 MG TABLET PO (21:52)
[2024-12-11 23:25] VITALS: PULSE 72; RESP 18; O2SAT 94
[2024-12-11] MEDS: Albuterol/Iprat 2.5/0.5MG 3 ML AMPUL.NEB INHALE (23:25)
[2024-12-12] MEDS: oxyCODONE HCl Immed Release 5 MG TABLET 10 MG PO (00:25)
[2024-12-12 01:25] VITALS: RESP 16
[2024-12-12 03:05] VITALS: BP 127/59; PULSE 78; RESP 18; TEMP 36.8; O2SAT 92
[2024-12-12] MEDS: Doxycycline Hyclate 100 MG in 0.9 % Sodium Chloride 250 ML 166.67 MG IV (03:08)
[2024-12-12] MEDS: Omeprazole 20 MG CAPSULE.DR PO (05:56)
[2024-12-12 06:49] VITALS: BP 118/58; PULSE 78; RESP 16; TEMP 37.3; O2SAT 95
[2024-12-12] MEDS: Cholecalciferol (Vitamin D3) 25 MCG TABLET 50 MCG PO (08:06)
[2024-12-12] MEDS: Aspirin Enteric Coated 81 MG TABLET.DR PO (08:06)
[2024-12-12] MEDS: MILNACIPRAN 50 MG 50 EACH PO (08:06)
[2024-12-12] MEDS: Topiramate 100 MG TABLET PO (08:06)
[2024-12-12] MEDS: Gabapentin 400 MG CAPSULE 800 MG PO (08:06)
[2024-12-12] MEDS: buPROPion HCl XL 300 MG TAB.ER.24H PO (08:06)
[2024-12-12] MEDS: Folic Acid 1 MG TABLET PO (08:06)
[2024-12-12] MEDS: 0.9 % Sodium Chloride Flush 3 ML SYRINGE IVFLUSH (08:08)
[2024-12-12] MEDS: methylPREDNISolone Sod Succ 40 MG/ML VIAL IVPUSH (10:59)
--- NOTE | 2024-12-12 11:23 | P.DS_ITS ---
DS: Providers Provider Date of Service: 12/12/24 Date of admission: 12/10/24 14:53 Date of discharge: 12/12/24 Primary care physician: Marcus Pedersen MD DS: Diagnosis Discharge Diagnosis (1) Obesity (BMI 30-39.9): Status: Acute DS: Summary Hospital Course Hospital Course: History and physical as per admitting provider. This is a 64-year-old female with history of lupus, asthma/COPD, active smoking who presents to the emergency department with shortness of breath. She reports one-week history of increasing shortness a breath associated with cough productive of yellow phlegm. She also reports fever a few days ago which has now resolved. She denies any recent sick contacts but she did travel last week due to a family. In the emergency department she was afebrile, lab work with no leukocytosis. She was noted to be tachypneic on arrival and her oxygen saturation dropped as low as 88% on room air. She was treated with IV steroids, IV magnesium, IV antibiotics and multiple breathing treatments. CTA showed concern for multifocal pneumonia. The decision was made to admit her to the hospital for further management. 64-year-old woman treated for acute respiratory failure with hypoxia secondary to multifocal pneumonia and COPD exacerbation. No sepsis. Treated with IV ceftriaxone doxycycline. Flu RSV B and COVID negative. Blood cultures negative. Patient weaned off oxygen, treated with IV systemic steroids and breathing treatments. Is to discharge patient home with steroid taper and to continue few more days of antibiotics for the pneumonia. Acute lactic acidosis. Likely secondary to breathing treatments and not sepsis Hyperlipidemia. Continue statin Mental health. Continue baseline medications History of lupus. Continue hydrochloroquine Obesity. BMI 35.9. Discussed importance of weight management as this may be contributing to worsening of other comorbidities Chronic pain. Continue gabapentin and baseline oxycodone. Time Attestation Discharge Coordination Time (in mins): 42 Quality: Safe Use of Opioids Does Pt have an Active Cancer Diagnosis on the Problem List?: No Quality: Stroke Does the patient have a stroke diagnosis?: No Physical Exam Vital Signs: Vital Signs: Last Vital Signs Temp 99.2 F 12/12/24 06:49 Pulse 78 12/12/24 06:49 Resp 16 12/12/24 06:49 BP 118/58 L 12/12/24 06:49 Pulse Ox 95 12/12/24 06:49 O2 Del Method Room Air 12/12/24 06:49 O2 Flow Rate 2 12/11/24 06:58 BMI result Body Mass Index 35.9 Appearing in no acute distress head is normocephalic atraumatic eyes pupils are PERRLA sclera is anicteric mouth throat mucous membranes are intact and moist neck is supple no lymphadenopathy, no JVD noted lung sounds are clear to auscultation heart regular rate rhythm, clear S1, S2 positive bowel sounds, abdomen is soft, nontender neuro patient is alert x3, no focal deficits DS: Data Data Completed and Pending Labs on day of discharge: Preliminary micro results at discharge 12/10/24 15:10 Blood Culture - Preliminary Blood - Venous No growth after 24 hours. 12/10/24 14:39 Blood Culture - Preliminary Blood - Venous No growth after 24 hours. Discharge Plan Discharge Anticipated Discharge Date/Time: 12/12/24 11:02 Patient Disposition: Home, Self-Care Discharge Diagnosis: Acute hypoxic respiratory failure secondary to multifocal pneumonia and COPD exacerbation Acute lactic acidosis Referrals: Marcus Pedersen MD [Primary Care Provider] - 1 Week Discharge Medications: New cefuroxime axetil 500 mg tablet 500 mg PO BID Qty: 10 0RF doxycycline hyclate 100 mg tablet 100 mg PO BID Qty: 10 0RF prednisone 10 mg tablet See Taper PO DIRECTED Qty: 30 0RF Taper: Prednisone 40 mg daily for 3 Days and 0 Hour 30 mg daily for 3 Days and 0 Hour 20 mg daily for 3 Days and 0 Hour 10 mg daily for 3 Days and 0 Hour Rx Instructions: see taper instructions Continued (DME) GRAB BAR See Rx Instructions .Route .MEDSUPPLY Qty: 1 0RF Rx Instructions: As directed (DME) ROLLATOR See Rx Instructions .Route .MEDSUPPLY Qty: 1 0RF Rx Instructions: As directed bupropion HCl 300 mg tablet extended release 24 hr 300 mg PO DAILY Qty: 90 1RF topiramate 100 mg tablet 100 mg PO BID Qty: 180 1RF clonazepam 0.5 mg tablet 0.5 mg PO BID PRN (Reason: anxiety) 30 Days Qty: 60 1RF zolpidem 10 mg tablet 10 mg PO BEDTIME PRN (Reason: insomnia) 30 Days Qty: 30 1RF folic acid 1 mg tablet 1 mg PO DAILY 90 Days Qty: 90 3RF cholecalciferol (vitamin D3) 50 mcg (2,000 unit) capsule 50 mcg PO DAILY 90 Days Qty: 90 0RF albuterol sulfate 2.5 mg /3 mL (0.083 %) solution for nebulization 2.5 mg inhalation TID PRN (Reason: shortness of breath or wheezing) Qty: 225 2RF tiotropium bromide [Spiriva with HandiHaler] 18 mcg capsule, w/inhalation device 1 cap inhalation DAILY Qty: 30 3RF docusate sodium 100 mg capsule 100 mg PO BID PRN (Reason: for constipation) Qty: 180 0RF varenicline tartrate 1 mg tablet 1 mg PO BID 28 Days Qty: 56 0RF atorvastatin 10 mg tablet 10 mg PO BEDTIME 90 Days Qty: 90 0RF aspirin 81 mg tablet,delayed release (DR/EC) 81 mg PO DAILY Qty: 90 0RF gabapentin 800 mg tablet 800 mg PO TID 30 Days Qty: 90 0RF oxycodone 10 mg tablet 10 mg PO Q6H PRN (Reason: pain) 28 Days Qty: 112 0RF Rx Instructions: Partial Fill upon patient request. Savella 50 mg tablet 50 mg PO BID tacrolimus 0.03 % ointment 1 appl topical BID PRN (Reason: Rash) omeprazole 20 mg capsule,delayed release(DR/EC) 20 mg PO DAILY@0630 albuterol sulfate 90 mcg/actuation Hfa Aerosol Inhaler 2 puff INHALATION QID PRN (Reason: Shortness Of Breath Or Wheezing) (DME) WHEELCHAIR (standard lightweight) See Rx Instructions .Route .MEDSUPPLY Qty: 1 0RF Rx Instructions: As directed (DME) SHOWER CHAIR See Rx Instructions .Route .MEDSUPPLY Qty: 1 0RF Rx Instructions: As directed chloroquine phosphate 250 mg tablet 250 mg PO MOTUWETHFR Patient Comments: Mondays through Fridays anifrolumab-fnia 300 mg/2 mL (150 mg/mL) solution 300 mg IV Q4W Rx Instructions: [place] Discharge Orders: Discharge Order (Routine); Ordered 12/12/24 Ordered By: Zaynab Gandaar Diet: Advance to usual diet Activity on Discharge: As tolerated Stand Alone Forms: Patient Portal Discharge page Print Language: Maltese Care Plan Goals: Complete steroid course and antibiotics Health Concerns: Acute hypoxic respiratory failure secondary to multifocal pneumonia and COPD exacerbation Acute lactic acidosis Plan of Treatment: Follow-up with primary care provider as needed Take all medications as prescribed Assessment: See discharge summary Discharge Date/Time: 12/12/24 12:01
[2024-12-12 11:45] VITALS: BP 140/66; PULSE 82; RESP 16; TEMP 36.6; O2SAT 92
--- NOTE | 2024-12-12 12:23 | MHC.CM.PN ---
PT WILL DC HOME TODAY WITH NO SERVICES, VIA PRIVATE TRANSPORT
== END 2024-12-12 12:01 | disposition home or self-care (01) | DRG 139 ==
LOC: HO.ED 10:11 → HO.EDOVER 15:45 → HO.S3 19:45
PROVIDERS: Physician Assistant; Admitting Provider Physician Assistant Medical; Emergency Provider Emergency Medicine; PCP Internal Medicine; Visit Provider Nurse Practitioner Acute Care
DX: J18.9 Pneumonia, unspecified organism (principal); J96.01 Acute respiratory failure with hypoxia; E87.21 Acute metabolic acidosis; J44.1 Chronic obstructive pulmonary disease with (acute) exacerbation; E66.812 Obesity, class 2; Z71.3 Dietary counseling and surveillance; L93.0 Discoid lupus erythematosus; Z68.35 Body mass index [BMI] 35.0-35.9, adult; E78.5 Hyperlipidemia, unspecified; F39 Unspecified mood [affective] disorder; G89.29 Other chronic pain; Z20.822 Contact with and (suspected) exposure to COVID-19; Z79.899 Other long term (current) drug therapy
CPT/HCPCS: 0241U; 36415; 71046; 71275; 80053; 81003; 83605; 83880; 84484; 85025; 85379; 85610; 85730; 87040; 93005; 94640; 99285; J0456; J0696; J1271; J1650; J2919; J3475; Q9967

== ENCOUNTER → 2024-12-10 09:33 | Outpatient (BNV) | payer OTHER, SELFPAY | PROVIDERS: Emergency Provider Emergency Medicine; PCP Internal Medicine; Visit Provider Radiology Diagnostic Radiology | DX: J96.01 Acute respiratory failure with hypoxia (principal); R06.02 Shortness of breath | CPT/HCPCS: 71046; 71275 ==

== ENCOUNTER → 2024-12-10 10:26 | Outpatient (BNV) | payer OTHER, SELFPAY | PROVIDERS: Admitting Provider Physician Assistant Medical; Emergency Provider Emergency Medicine; PCP Internal Medicine; Visit Provider Internal Medicine | DX: R07.9 Chest pain, unspecified (principal) | CPT/HCPCS: 93010 ==

== ENCOUNTER → 2024-12-10 14:53 | Outpatient (BNV) | payer OTHER, SELFPAY | PROVIDERS: Admitting Provider Physician Assistant Medical; Emergency Provider Emergency Medicine; PCP Internal Medicine; Visit Provider Nurse Practitioner Acute Care | DX: J96.01 Acute respiratory failure with hypoxia (principal); E66.9 Obesity, unspecified | CPT/HCPCS: 99223; 99232; 99239 ==

== ENCOUNTER 2024-12-17 15:36 | Outpatient (AMB) | payer OTHER, SELFPAY ==
--- NOTE | 2024-12-17 15:38 | A.OFFPC_ITS ---
Vital Signs 12/17/24 15:39 Height 5 ft 2 in Weight 185 lb BMI 33.8 BP 110/70 Blood Pressure Location Lt brachial Position Sitting Pulse 81 Pulse Source Pulse Oximeter Pulse Oximetry (%) 95 Oxygen Delivery Method Room Air Intake Visit Reasons: [facility] [place] Pneumonia/Asthma Derrick Helper Required: No Accompanied by: Self / Same As Patient Allergies hydroxychloroquine [From [facility]] Allergy (Intermediate, Verified 12/17/24 15:39) SHORTNESS, CHEST TIGHTNESS , RASH oseltamivir Allergy (Unknown, Verified 12/17/24 15:39) Unknown Tobacco use date assessed: 12/17/24 Dental Screening Dental Screen Date: 12/17/24 Did you have a dental visit in the last 12 months?: Yes Did you have a dental problem in the last 6 months where you did not have access to dental care?: No Was dental information given to patient?: Patient has dentist HPI HPI Comments History of Present Illness Details 64 y/o Female patient who presents to [facility] today for HDF. Pmhx significant for lupus, asthma/COPD, and active smoking. She was admitted at [facility] on 12/10 - 12/12 for evaluation and treatment of acute respiratory failure with hypoxia secondary to multifocal pneumonia and COPD exacerbation. Denies SOB, CP, cough, wheezing, fevers or chills. [facility] Medical History (Updated 12/17/24 @ 15:55 by Luz Galvin NP) Multifocal pneumonia RSV bronchitis Vitamin D deficiency Fibromyalgia Migraine Dental abscess Constipation Obesity (BMI 30-39.9) Depression Anxiety Insomnia GERD without esophagitis Elevated LFTs Dyslipidemia Discoid lupus Asthma Lumbar degenerative disc disease Surgical History History of colonoscopy History of laparoscopic appendectomy History of sinus surgery History of lumbar surgery S/P total abdominal hysterectomy H/O hand surgery History of foot surgery History of tubal ligation Family History Father Heart disease Hypertension Stroke CVD (cardiovascular disease) Mother Hypertension Asthma Diabetes Sister Diabetes Hypertension Other Mental problem Social History Household Members: Other Household Members Other:: Brother Housing: House Alcohol intake: never Patient Tobacco Use Status: Current everyday Tobacco user Tobacco use type: Cigarette Cigarettes Per Day: 2 Years Smoked: 40 Packs per year/per ci.00 e-Cigarette/Vaping Use: Never Used Second Hand Smoke Exposure: No service: No Current occupational status: disabled Cognitive needs: Yes (walker) Hearing needs: No Vision needs: Yes Questionnaire PHQ-9 Over the last 2 weeks, how often have you been bothered by any of the following problems? 1. Little interest or pleasure in doing things: more than half the days 2. Feeling down, depressed, or hopeless: several days 3. Trouble falling or staying asleep, or sleeping too much: several days 4. Feeling tired or having little energy: more than half the days 5. Poor appetite or overeating: nearly every day 6. Feeling bad about yourself - or that you are a failure or have let yourself or your family down: not at all 7. Trouble concentrating on things, such as reading the newspaper or watching television: not at all 8. Moving or speaking so slowly that other people could have noticed. Or the opposite - being so fidgety or restless that you have been moving around a lot more than usual: nearly every day 9. Thoughts that you would be better off or of hurting yourself in some way : not at all Total score: 12 Source: Developed by Drs. Jesus Queen, Belia Kc, Inocente Gibson and colleagues, with an educational ang from [employer]. Thrive Questionnaire Date Thrive assessed: 12/17/24 I am a: Patient What is your living situation today?: I choose not to answer this question Within the past 12 months, did the food you bought not last and you didn't have the money to get more?: I choose not to answer this question Within the past 12 months, did you worry whether your food would run out before you got money to buy more?: I choose not to answer this question Do you have trouble paying for medicines?: No Do you have trouble getting transportation to medical appointments?: No Do you have trouble paying your heating and electricity bill?: No Do you have trouble taking care of your child, family member or friend?: No Do you have trouble with day-to-day activities such as bathing, preparing meals, shopping, managing finances, etc.?: Yes Are you currently unemployed and looking for a job?: I choose not to answer this question Are you interested in more education?: I choose not to answer this question Please select the resources that you would like help with: None Currently or been in a relationship where the following occur: No concerns reported THRIVE Score: 0 AUDIT C Alcohol Use Questionnaire (AUDIT-C) 1. How often do you have a drink containing alcohol?: Never 3. How often do you have six or more drinks on one occasion?: Never Total Score: 0 MARY-7 AMB Questionnaire MARY-7 Date MARY - 7 assessed: 12/17/24 Feeling nervous, anxious, or on edge: 3 = Nearly every day Not being able to stop or control worryin = More than half the days Worrying too much about different things: 1 = Several days Trouble relaxin = Several days Being so restless that it is hard to sit still: 1 = Several days Becoming easily annoyed or irritable: 1 = Several days Feeling afraid as if something awful might happen: 0 = Not at all Total MARY-7 score (0-4 normal; 5-9 mild; 10-14 moderate; 15-21 severe): 9 Source: Developed by Drs. Jesus Queen, Belia Kc, Inocente Gibson and colleagues, with an educational ang from [employer]. Review of Systems Const All systems reviewed & are unremarkable except as noted in HPI and below Physical exam (Primary Care) Vital Signs: Last Vital Signs Pulse 81 12/17/24 15:39 BP 110/70 12/17/24 15:39 Pulse Ox 95 12/17/24 15:39 Oxygen Delivery Method Room Air 12/17/24 15:39 BMI result Body Mass Index 33.8 Tobacco/Smoking Status: Tobacco use Status Tobacco use date assessed 12/17/24 12/17/24 15:45 Patient Tobacco Use Status Current everyday Tobacco 12/17/24 15:45 Tobacco use type Cigarette 12/17/24 15:45 e-Cigarette/Vaping Use Never Used 12/17/24 15:45 PHQ-9: PHQ-9 Score PHQ-9: Total score 12 12/17/24 15:55 Thrive Assessment: Date of Thrive Assessment Date Thrive assessed 12/17/24 12/17/24 15:45 Currently or been in a relationship where the following occur: No concerns reported Const General: no acute distress Nutritional Appearance: overweight Orientation/consciousness: patient oriented x3 Resp Effort & Inspection: normal respiratory effort Auscultation: clear to auscultation bilaterally, no crackles, no rales, no rhonchi and no wheezes Cardio Rhythm: regular rhythm Heart sounds: S1 normal heart sound present and S2 normal heart sound present Neuro General: patient oriented x3 Coding Level of Care Code Est Pt Level 4 (89856) Diagnoses Acute hypoxic respiratory failure J96.01 Multifocal pneumonia J18.9 Time Spent (min) 20 Assessment & Plan Assessment & Plan (1) Acute hypoxic respiratory failure: Code(s): J96.01 - Acute respiratory failure with hypoxia Category: Medical Plan: Resolved. (2) Multifocal pneumonia: Code(s): J18.9 - Pneumonia, unspecified organism Category: Medical Plan: Resolved.
[2024-12-17 15:39] VITALS: BP 110/70; PULSE 81; O2SAT 95; BMI 33.8
== END 2024-12-17 16:16 | disposition home or self-care (01) ==
LOC: HO.HMCH 15:36
PROVIDERS: PCP Internal Medicine; Visit Provider Nurse Practitioner Family
DX: J96.01 Acute respiratory failure with hypoxia (principal); J18.9 Pneumonia, unspecified organism

== ENCOUNTER → 2024-12-17 15:36 | Outpatient (BNVA) | payer OTHER, SELFPAY | PROVIDERS: PCP Internal Medicine; Visit Provider Nurse Practitioner Family | DX: J96.01 Acute respiratory failure with hypoxia (principal); J44.9 Chronic obstructive pulmonary disease, unspecified; J18.9 Pneumonia, unspecified organism; F17.210 Nicotine dependence, cigarettes, uncomplicated | CPT/HCPCS: 99212 ==

== ENCOUNTER 2025-01-21 15:09 | Outpatient (REF) | payer OTHER, SELFPAY ==
--- NOTE | ~2025-01-21 | MM_ITS ---
EXAMINATION: MM SCREENING DIGITAL BREAST TOMOSYNTHESIS, BILATERAL CLINICAL INFORMATION: Screening. Asymptomatic. COMPARISON: Mammography: Comparison is made with available priors TECHNIQUE: Digital breast mammography with tomosynthesis is performed in both the craniocaudal and mediolateral oblique views along with computer-aided detection (CAD). FINDINGS: There are scattered areas of fibroglandular density (ACR BI-RADS breast composition Category b). There are no significant masses, abnormal calcifications, or other abnormalities. MM/MM tomosynthesis screening BI IMPRESSION: No mammographic evidence of malignancy. ASSESSMENT: BI-RADS BI-RADS 1 - Negative RECOMMENDATION: Routine annual mammography screening. 1 year F/U This examination should not preclude the clinical evaluation of a suspicious palpable abnormality. This patient's information was entered into a reminder system with a target due date for their next mammogram. Electronically signed by: Pascale Woody DO 01/28/2025 08:36 AM EDT
--- OUTSIDE RECORDS SUMMARY | 2025-01-21 15:12 | XMS_ITS | Clinical Summary ---
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 Name Role Phone Unavailable Primary Care [...] 2007 Imm-Zoster, Recombinant (1 of 2) 2012 [id number] ( season) 2024 021, 11/01/2020 Alcohol and Drug Screen 08/04/2024 Depression Annual Screen 08/04/2024 Imm-Influenza (Season Ended) 04/04/202505/2020, 09/22/2019, 06/30/2018, Additional history exists Imm-DTaP/Tdap/Td (2 - Td or Tdap) 08/11/2025 016 Cervical Ablation/Cold-Knife Conization Discontinued Cervical Cryotherapy Discontinued Colposcopy Discontinued Endometrial Biopsy Discontinued Excision/Leep Discontinued HPV Genotyping Discontinued Vaginal Pap Discontinued Vulvoscopy Discontinued Insurance [employer] PL[employer] Member Subscriber Plan / Payer (Ef fective 2017-Present) Name:Medina Mcmahan Relation to Subscriber:Self Name:Medina Mcmahan Payer ID:[id number] Group ID:[id number] Type:Medicaid Address: [id number] [place] [address]
== END 2025-01-21 15:10 | disposition home or self-care (01) ==
LOC: HO.MAMMO 15:09
PROVIDERS: PCP Internal Medicine; Visit Provider Internal Medicine
DX: Z12.31 Encounter for screening mammogram for malignant neoplasm of breast (principal)
CPT/HCPCS: 77063; 77067

== ENCOUNTER → 2025-01-21 15:30 | Outpatient (BNV) | payer OTHER, SELFPAY | PROVIDERS: PCP Internal Medicine; Visit Provider Internal Medicine | DX: Z12.31 Encounter for screening mammogram for malignant neoplasm of breast (principal) | CPT/HCPCS: 77063; 77067 ==

== ENCOUNTER 2025-03-23 15:07 | Outpatient (AMB) | payer OTHER, SELFPAY ==
[2025-03-23 15:29] VITALS: BP 120/60; PULSE 74; RESP 18; O2SAT 96; BMI 33.5
--- NOTE | 2025-03-23 15:29 | MHC.PC.OV ---
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 Language: Palestinian Accompanied by: Self / Same As Patient Allergies hydroxychloroquine (From [facility]) Allergy (Intermediate, Verified 03/23/25 16:07) SHORTNESS, CHEST TIGHTNESS , RASH oseltamivir Allergy (Unknown, Verified 03/23/25 16:07) Unknown Medication List - Last Reconciled 03/23/25 by Marcus Pedersen MD albuterol sulfate 90 mcg/actuation 2 puffs inhalation QID PRN albuterol sulfate 2.5 mg (3 mL) inhalation TID PRN anifrolumab-fnia 300 mg IV Q4W aspirin 81 mg PO DAILY atorvastatin 10 mg PO BEDTIME 90 days bupropion HCl XL 300 mg PO DAILY chloroquine phosphate 250 mg PO MOTUWETHFR cholecalciferol (vitamin D3) 50 mcg PO DAILY 90 days clonazepam 0.5 mg PO BID PRN 30 days docusate sodium 100 mg PO BID PRN doxycycline hyclate 100 mg PO BID folic acid 1 mg PO DAILY 90 days gabapentin 800 mg PO TID 30 days [GRAB BAR As directed] milnacipran (Savella) 50 mg PO BID omeprazole 20 mg PO DAILY oxycodone 10 mg PO Q6H PRN 28 days [ROLLATOR As directed] [SHOWER CHAIR As directed] tacrolimus 0.03% 1 appl topical BID PRN tiotropium bromide (Spiriva with HandiHaler) 1 cap inhalation DAILY topiramate 100 mg PO BID varenicline tartrate 1 mg PO BID 28 days [WHEELCHAIR (standard lightweight) As directed] zolpidem 10 mg PO BEDTIME PRN 30 days Tobacco use date assessed: 03/23/25 Dental Screening Dental Screen Date: 03/23/25 Did you have a dental visit in the last 12 months?: Yes Did you have a dental problem in the last 6 months where you did not have access to dental care?: No Was dental information given to patient?: Patient has dentist HPI hyperlipidemia, discoid lupus, asthma, IFG HPI Details Patient comes in today for her follow-up visit States that she feels okay She is still receiving IV infusions of Saphnelo at [facility] every 4 weeks for her discoid lupus - Rx is being prescribed and managed by her director biomedical engineering at [facility] (Dr. Luz Qureshi) She denies any headaches or dizziness Denies any chest pains, no increased shortness of breath No nausea/ vomiting, no abdominal pain No change in bowel habits noted States that her chronic low back pain and joint pains remain adequately controlled on her current medication Needs a few of her Rx refilled She was not able to get her follow up labs done prior to coming in for her appointment today [facility] Medical History COPD (chronic obstructive pulmonary disease) Multifocal pneumonia RSV bronchitis Vitamin D deficiency Fibromyalgia Migraine Dental abscess Constipation Obesity (BMI 30-39.9) Depression Anxiety Insomnia GERD without esophagitis Elevated LFTs Dyslipidemia Discoid lupus Asthma Lumbar degenerative disc disease Surgical History History of colonoscopy History of laparoscopic appendectomy History of sinus surgery History of lumbar surgery S/P total abdominal hysterectomy H/O hand surgery History of foot surgery History of tubal ligation Family History Father Heart disease Hypertension Stroke CVD (cardiovascular disease) Mother Hypertension Asthma Diabetes Sister Diabetes Hypertension Other Mental problem Social History Household Members: Other Household Members Other:: Brother Housing: House Alcohol intake: never Patient Tobacco Use Status: Current everyday Tobacco user Tobacco use type: Cigarette Cigarettes Per Day: 2 Years Smoked: 40 e-Cigarette/Vaping Use: Never Used Second Hand Smoke Exposure: No service: No Current occupational status: disabled Cognitive needs: Yes (walker) Hearing needs: No Vision needs: Yes Questionnaire PHQ-9 Over the last 2 weeks, how often have you been bothered by any of the following problems? 1. Little interest or pleasure in doing things: more than half the days 2. Feeling down, depressed, or hopeless: several days 3. Trouble falling or staying asleep, or sleeping too much: several days 4. Feeling tired or having little energy: more than half the days 5. Poor appetite or overeating: nearly every day 6. Feeling bad about yourself - or that you are a failure or have let yourself or your family down: not at all 7. Trouble concentrating on things, such as reading the newspaper or watching television: not at all 8. Moving or speaking so slowly that other people could have noticed. Or the opposite - being so fidgety or restless that you have been moving around a lot more than usual: nearly every day 9. Thoughts that you would be better off or of hurting yourself in some way: not at all Total score: 12 Depression Screening Interpretation: Positive Depression Screening Follow-up: Existing condition and In treatment Depression Screening Done: Yes 88318 - PHQ-9 Billing: Yes Source: Developed by Drs. Jesus Queen, Belia Kc, Inocente Gibson and colleagues, with an educational ang from [employer]. Thrive Questionnaire Date Thrive assessed: 03/23/25 I am a: Patient What is your living situation today?: I choose not to answer this question Within the past 12 months, did the food you bought not last and you didn't have the money to get more?: I choose not to answer this question Within the past 12 months, did you worry whether your food would run out before you got money to buy more?: I choose not to answer this question Do you have trouble paying for medicines?: No Do you have trouble getting transportation to medical appointments?: No Do you have trouble paying your heating and electricity bill?: No Do you have trouble taking care of your child, family member or friend?: No Do you have trouble with day-to-day activities such as bathing, preparing meals, shopping, managing finances, etc.?: Yes Are you currently unemployed and looking for a job?: I choose not to answer this question Are you interested in more education?: I choose not to answer this question Please select the resources that you would like help with: None Currently or been in a relationship where the following occur: No concerns reported THRIVE Score: 0 AUDIT C Alcohol Use Questionnaire (AUDIT-C) 1. How often do you have a drink containing alcohol?: Never 3. How often do you have six or more drinks on one occasion?: Never Total Score: 0 Score Reviewed/Action Taken: Yes MARY-7 AMB Questionnaire MARY-7 Date MARY - 7 assessed: 03/23/25 Feeling nervous, anxious, or on edge: 3 = Nearly every day Not being able to stop or control worryin = More than half the days Worrying too much about different things: 1 = Several days Trouble relaxin = Several days Being so restless that it is hard to sit still: 1 = Several days Becoming easily annoyed or irritable: 1 = Several days Feeling afraid as if something awful might happen: 0 = Not at all Total MARY-7 score (0-4 normal; 5-9 mild; 10-14 moderate; 15-21 severe): 9 Source: Developed by Drs. Jesus Queen, Belia Kc, Inocente Gibson and colleagues, with an educational ang from [employer]. Review of Systems Const Denies chills, Denies difficulty sleeping, Reports fatigue (at times), Denies fever(s) and Denies headache(s) ENT Denies dysphagia, Denies dizziness, Denies otalgia, Denies headache(s), Denies neck pain, Denies odynophagia and Denies sore throat Card Denies chest pain, Denies palpitations and Denies dyspnea Resp Denies chest congestion, Denies cough and Denies dyspnea GI Denies abdominal pain, Denies constipation, Denies dysphagia, Denies heartburn, Denies diarrhea, Denies nausea, Denies odynophagia and Denies vomiting Denies difficulty voiding, Denies nocturia, Denies dysuria and Denies urinary urgency Musc Reports back pain (over the lower back - chronic), Reports arthralgias (involving multiple joints) and Denies neck pain Skin/Breast Reports rash (scattered facial rash) Neuro Denies dizziness and Denies headache(s) Endo Reports fatigue (at times) and Denies palpitations Physical exam (Primary Care) Vital Signs: Last Vital Signs Pulse 74 03/23/25 15:29 Resp 18 03/23/25 15:29 BP 120/60 03/23/25 15:29 Pulse Ox 96 03/23/25 15:29 Oxygen Delivery Method Room Air 03/23/25 15:29 BMI result Body Mass Index 33.5 Tobacco/Smoking Status: Tobacco use Status Tobacco use date assessed 03/23/25 03/23/25 15:36 Patient Tobacco Use Status Current everyday Tobacco 03/23/25 15:36 Tobacco use type Cigarette 03/23/25 15:36 e-Cigarette/Vaping Use Never Used 03/23/25 15:36 PHQ-9: PHQ-9 Score PHQ-9: Total score 12 03/23/25 16:12 Depression Screening Interpretation: Positive Depression Screening Follow-up: Existing condition and In treatment Thrive Assessment: Date of Thrive Assessment Date Thrive assessed 03/23/25 03/23/25 15:36 Currently or been in a relationship where the following occur: No concerns reported Const General: no acute distress and alert HENMT Ears: TM's normal bilaterally and EAC's normal Throat: Yes posterior oropharynx normal and Yes tonsils normal (no TP congestion noted) Neck Neck: Yes no lymphadenopathy and Yes supple Thyroid: Thyroid normal Resp Auscultation: clear to auscultation bilaterally, no rales and no wheezes Cardio Rate: regular rate Rhythm: regular rhythm Heart sounds: no murmurs GI Palpation (GI): Soft to palpation and nontender Auscultation: normal bowel sounds Back/Spine/Pelvis Thoracic/Lumbar Spine: lumbar spinal tenderness Skin Other: (+) scattered patchy erythematous discoid and urticarial rash on the face (forehead and cheeks especially) Extrem General: Yes no clubbing, cyanosis or edema Left lower extremity: foot Details: tenderness Location: of the dorsal foot Coding Level of Care Code Est Pt Level 4 (92139) Diagnoses Dyslipidemia E78.5 Discoid lupus L93.0 Elevated LFTs R79.89 Mild persistent asthma without complication J45.30 Asthma severity: mild Asthma persistence: persistent Asthma complication type: uncomplicated Migraine without status migrainosus, not intractable, unspecified migraine type G43.909 Migraine type: unspecified Status migrainosus presence: without status migrainosus Intractability: not intractable Fibromyalgia M79.7 Degeneration of intervertebral disc of lumbar region with discogenic back pain M51.360 Disc-related pain type: discogenic back pain only GERD without esophagitis K21.9 Vitamin D deficiency E55.9 Insomnia, unspecified type G47.00 Insomnia type: unspecified Anxiety F41.9 Episode of recurrent major depressive disorder, unspecified depression episode severity F33.9 Depression Type: major depressive disorder Major depression recurrence: recurrent Active/Remission status: currently active Major depression episode severity: unspecified Obesity (BMI 30-39.9) E66.9 Additional Codes PHQ-9 - 76802 - PHQ-9 Billing: Yes ([id number]) Assessment & Plan Assessment & Plan (1) Dyslipidemia: Code(s): E78.5 - Hyperlipidemia, unspecified Category: Medical Plan: Patient was not able to get her follow up labs done prior to her appointment today - states that she will try to go and get these done BAYLEE Reinforced low cholesterol diet Continue Atorvastatin 10 mg QD Will recheck her labs and fasting lipids again in 3 months for follow up (2) Discoid lupus: Code(s): L93.0 - Discoid lupus erythematosus Category: Medical Plan: She was on Methotrexate in the past but this was discontinued due to her elevated BP and LFTs She was on Chloroquine 250 mg QD Mondays through Fridays and off the Rx on Saturdays and Sundays; she was also on Mycophenolate 500 mg BID but is now on IV infusion of Saphnelo every 4 weeks - gets her infusion at [facility] in [place] through her director biomedical engineering there, Dr. Sheridan Qureshi She still goes to Dermatology in [place], [place] for her regular follow ups (3) Elevated LFTs: Code(s): R79.89 - Other specified abnormal findings of blood chemistry Category: Medical Plan: Her LFTs were elevated in the past but were back to normal on her most recent available labs - these were likely due to her weight Abdominal US done last year revealed (+) diffuse increase in echogenicity of the liver characteristic of primary hepatocellular disease, possibly due to hepatic steatosis and severely limits visualization. CT scan should offer better visualization if indicated Will continue to monitor her LFTs closely for now and if these get worse, will then consider getting an abdominal CT for further evaluation (4) Asthma: Code(s): J45.909 - Unspecified asthma, uncomplicated Category: Medical Qualifiers: Asthma severity: mild Asthma persistence: persistent Asthma complication type: uncomplicated Qualified Code(s): J45.30 - Mild persistent asthma, uncomplicated Plan: Controlled lately Continue Advair Diskus 100-50 mcg 1 puff twice a day, Spiriva Handihaler 18 mcg inhale contents of 1 capsule once a day and ProAir HFA 2 puffs 4 times a day as needed (5) Migraine: Code(s): G43.909 - Migraine, unspecified, not intractable, without status migrainosus Category: Medical Qualifiers: Migraine type: unspecified Status migrainosus presence: without status migrainosus Intractability: not intractable Qualified Code(s): G43.909 - Migraine, unspecified, not intractable, without status migrainosus Plan: Controlled Continue Topiramate 100 mg BID for ALFARO prophylaxis Follow up with neurology as scheduled (6) Fibromyalgia: Code(s): M79.7 - Fibromyalgia Category: Medical Plan: She was previously taken off Duloxetine due to high BP and elevated LFTs; currently remains on Gabapentin and Tizanidine Follow up with rheumatology as scheduled (7) Lumbar degenerative disc disease: Code(s): M51.36 - Other intervertebral disc degeneration, lumbar region Category: Medical Qualifiers: Disc-related pain type: discogenic back pain only Qualified Code(s): M51.360 - Other intervertebral disc degeneration, lumbar region with discogenic back pain only Plan: Reinforced activity and weight lifting restrictions Continue?Gabapentin?800 mg 3 times a day,?Oxycodone-Acetaminophen?10-325 mg every 6 hours as needed,?Tizanidine?4 mg 3 times a day as needed and?Salsalate?500 mg 2 tablets 3 times a day with food She has been referred to physical therapy as needed when her low back pain flares up (8) GERD without esophagitis: Code(s): K21.9 - Gastro-esophageal reflux disease without esophagitis Category: Medical Plan: Dietary restrictions reinforced Continue Omeprazole 20 mg QD (9) Vitamin D deficiency: Code(s): E55.9 - Vitamin D deficiency, unspecified Category: Medical Plan: Continue Vitamin D3 2000 units QD (10) Insomnia: Code(s): G47.00 - Insomnia, unspecified Category: Medical Qualifiers: Insomnia type: unspecified Qualified Code(s): G47.00 - Insomnia, unspecified Plan: Sleep hygiene reinforced Continue Zolpidem 10 mg once a day at bedtime as needed and Trazodone 50 mg Q HS PRN (11) Anxiety: Code(s): F41.9 - Anxiety disorder, unspecified Category: Medical Plan: Continue Clonazepam 0.5 mg 1 tablet twice a day as needed and Hydroxyzine 10 mg 1 tablet twice a day as needed (12) Depression: Code(s): F32.9 - Major depressive disorder, single episode, unspecified Category: Medical Qualifiers: Depression Type: major depressive disorder Major depression recurrence: recurrent Active/Remission status: currently active Major depression episode severity: unspecified Qualified Code(s): F33.9 - Major depressive disorder, recurrent, unspecified Plan: Follow-up with Psychiatry as scheduled (13) Obesity (BMI 30-39.9): Code(s): E66.9 - Obesity, unspecified Category: Medical Plan: Reinforced diet; exercise and weight are unrealistic given patient's multiple comorbidities Plan Follow up in 3 months Orders: Orders Complete Blood Count Auto Diff 3 Months D64.9 - Anemia, unspecified Comprehensive [place]. Panel Fast 3 Months E78.00 - Pure hypercholesterolemia, unspecified Lipid Panel 3 Months E78.00 - Pure hypercholesterolemia, unspecified Medications: Changed From albuterol sulfate 90 mcg/actuation 2 puffs inhalation QID PRN Shortness Of Breath Or Wheezing To albuterol sulfate 90 mcg/actuation 2 puffs inhalation QID PRN 8.5 grams 5RF Shortness Of Breath Or Wheezing 30 days Refilled hydroxyzine HCl 10 mg PO BID PRN 60 tabs 3RF for anxiety docusate sodium 100 mg PO BID PRN 60 caps 5RF for constipation K59.00 - Constipation, unspecified
--- OUTSIDE RECORDS SUMMARY | 2025-03-23 16:02 | XMS_ITS | Clinical Summary ---
Author Organization [facility] Address [address] [place] [address] Care Team Providers Care Applier Name Role Phone Unavailable Primary Care Provider [...] 2007 Imm-Zoster, Recombinant (1 of 2) 2012 Imm-Pneumococcal 50+ (2 of 2 - PCV) 07/13/2016 07/13/2015 [id number] ( season) 04/04/202411/29/ 021, 11/01/2020 Alcohol and Drug Screen 08/04/2024 Depression Annual Screen 08/04/2024 Imm-Influenza (#1) 2025 06/13/2020, 0 09/22/2019, 06/30/2018, Additional history exists Imm-DTaP/Tdap/Td (2 - Td or Tdap) 08/11/2025 016 Cervical Ablation/Cold-Knife Conization Discontinued Cervical Cryotherapy Discontinued Colposcopy Discontinued Endometrial Biopsy Discontinued Excision/Leep Discontinued HPV Genotyping Discontinued Vaginal Pap Discontinued Vulvoscopy Discontinued Insurance [place] [employer] Member Subscriber Plan / Payer (Ef fective 2017-Present) Name:Medina Mcmahan Relation to Subscriber:Self Name:Medina Mcmahan Payer ID:[id number] Group ID:[id number] Type:Medicaid Address: [facility] [address] [place] [address]
== END 2025-03-23 16:16 | disposition home or self-care (01) ==
LOC: HO.HMCH 15:08
PROVIDERS: PCP Internal Medicine; Visit Provider Internal Medicine
DX: E78.5 Hyperlipidemia, unspecified (principal); L93.0 Discoid lupus erythematosus; E66.811 Obesity, class 1; Z68.33 Body mass index [BMI] 33.0-33.9, adult; R79.89 Other specified abnormal findings of blood chemistry; J45.30 Mild persistent asthma, uncomplicated; G43.909 Migraine, unspecified, not intractable, without status migrainosus; M79.7 Fibromyalgia; K21.9 Gastro-esophageal reflux disease without esophagitis; M51.360 Other intervertebral disc degeneration, lumbar region with discogenic back pain only; E55.9 Vitamin D deficiency, unspecified; G47.00 Insomnia, unspecified

== ENCOUNTER → 2025-03-23 15:07 | Outpatient (BNVA) | payer OTHER, SELFPAY | PROVIDERS: PCP Internal Medicine; Visit Provider Internal Medicine | DX: L93.0 Discoid lupus erythematosus (principal); E78.5 Hyperlipidemia, unspecified; R79.89 Other specified abnormal findings of blood chemistry; J45.30 Mild persistent asthma, uncomplicated; G43.909 Migraine, unspecified, not intractable, without status migrainosus; M79.7 Fibromyalgia; M51.360 Other intervertebral disc degeneration, lumbar region with discogenic back pain only; K21.9 Gastro-esophageal reflux disease without esophagitis; E55.9 Vitamin D deficiency, unspecified; G47.00 Insomnia, unspecified; F41.9 Anxiety disorder, unspecified; F33.9 Major depressive disorder, recurrent, unspecified; E66.9 Obesity, unspecified; Z68.33 Body mass index [BMI] 33.0-33.9, adult | CPT/HCPCS: 96127; 99212 ==